=== PATIENT | male | born 1955 | race Caucasian/White ===

== ENCOUNTER 2022-03-08 09:44 | Outpatient (REF) | payer OTHER, SELFPAY ==
--- NOTE | ~2022-03-08 | XR_ITS ---
EXAMINATION: KNEE X-RAY CLINICAL INFORMATION: Pain COMPARISON: None TECHNIQUE: Standing AP view of both knees and lateral and sunrise view of the left knee FINDINGS: Left: There is slight medial subluxation of the distal femur with respect to the proximal tibia. There may be mild varus angulation. There is arthritis at the medial femoral tibial and patellofemoral joints with joint space narrowing and osteophyte formation. There is degenerative meniscal calcification. There is a small joint effusion. Standing AP view of the right knee demonstrate a right knee replacement in satisfactory position. There may be an old healed fracture of the distal femoral shaft. XR/XR knee standing BI IMPRESSION: Left knee arthritis. Right knee replacement.
--- NOTE | ~2022-03-08 | XR_ITS ---
EXAMINATION: KNEE X-RAY CLINICAL INFORMATION: Pain COMPARISON: None TECHNIQUE: Standing AP view of both knees and lateral and sunrise view of the left knee FINDINGS: Left: There is slight medial subluxation of the distal femur with respect to the proximal tibia. There may be mild varus angulation. There is arthritis at the medial femoral tibial and patellofemoral joints with joint space narrowing and osteophyte formation. There is degenerative meniscal calcification. There is a small joint effusion. Standing AP view of the right knee demonstrate a right knee replacement in satisfactory position. There may be an old healed fracture of the distal femoral shaft. XR/XR knee LT 2V IMPRESSION: Left knee arthritis. Right knee replacement.
== END 2022-03-08 09:45 | disposition home or self-care (01) ==
LOC: HO.HOSX 09:44
PROVIDERS: Visit Provider Orthopaedic Surgery
DX: M17.12 Unilateral primary osteoarthritis, left knee (principal); Z96.651 Presence of right artificial knee joint
CPT/HCPCS: 73560; 73565

== ENCOUNTER → 2022-08-08 12:48 | Outpatient (BNVA) | payer MEDICARE, SELFPAY | PROVIDERS: PCP Internal Medicine; Visit Provider Physician Assistant | DX: Z01.818 Encounter for other preprocedural examination (principal); M17.12 Unilateral primary osteoarthritis, left knee | CPT/HCPCS: 99212 ==

== ENCOUNTER 2022-08-14 05:54 | Inpatient (IN) | payer MEDICARE, SELFPAY ==
[2022-07-10 11:03] LABS: MANUAL DIFF FLAG NO
--- NOTE | 2022-07-10 11:12 | ECG_ITS ---
Test Reason : PRE OP Blood Pressure : / mmHG Vent. Rate : 055 BPM Atrial Rate : 055 BPM P-R Int : 158 ms QRS Dur : 106 ms QT Int : 416 ms P-R-T Axes : 028 -53 -07 degrees QTc Int : 397 ms Sinus bradycardia Left axis deviation Abnormal ECG When compared with ECG of 08-AUG-2009 10:18, No significant change was found Referred By: Arnel King Electronically Signed By:ANGELITO SILVA
[2022-07-10 11:47] LABS: Basophils Percent Auto 0.8 % (0-2); Eosinophils Absolute Auto 0.2 X10*3/uL (0.0-0.4); Hematocrit 40.8 % (42.0-52.0); Hemoglobin 13.6 g/dl (14.0-18.0); Imm Gran Abs Auto 0.02 X10*3/uL (0.00-0.03); Imm Gran Pct Auto 0.5 % (0.0-0.4); Lymphocytes Absolute Auto 1.3 X10*3/uL (1.2-4.9); Lymphocytes Percent Auto 32.3 % (20-40); Mean Corpuscular HGB Conc 33.3 g/dl (31.0-36.0); Mean Corpuscular Hemoglobin 29.7 pg (27.0-33.0); Mean Corpuscular Volume 89.1 fL (80.0-98.0); Mean Platelet Volume 11.5 fL (9.4-12.4); Monocytes Absolute Auto 0.6 X10*3/uL (0.1-1.2); Monocytes Percent Auto 15.7 % (2-11); Neutrophils Absolute Auto 1.9 x10*3/uL (2.0-8.3); Neutrophils Percent Auto 46.7 % (45-73); Platelet Count 168 X10*3/uL (160-400); Red Blood Count 4.58 X10*6/uL (4.60-5.80); Red Cell Distribution Width 13.1 % (11.0-16.0)
[2022-07-10 11:53] LABS: Estimated Average Glucose 105 mg/dL; Hemoglobin A1c % 5.3 %
[2022-07-10 12:29] LABS: Anion Gap 14 (12-20); Blood Urea Nitrogen 22 mg/dL (9-16); Carbon Dioxide 25 mmol/L (22-29); Chloride 106 mmol/L (96-108); Estimated Glomerular Filt Rate > 60; Glucose Random 81 mg/dL (60-115); Potassium 4.4 mmol/L (3.3-5.1); Sodium 141 mmol/L (135-145)
[2022-08-06 11:58] VITALS: BMI 35.5
[2022-08-06 12:03] VITALS: BP 148/75; PULSE 58; RESP 20; O2SAT 99
--- NOTE | 2022-08-06 12:10 | HO.ANESPROP2 ---
Documented by User: Venice Faulkner NP 08/06/22 12:21 HPI - Anesthesia Eval Consult details Narrative: 67yo M for Left Knee Replacement Total PCP cleared ? ROSARIO - denies snoring, reports rare apnea during sleep PMFSH Active Problems Active Problems: All Active Problems (Updated 08/06/22 @ 11:53 by Iman Angel RN) Osteoarthritis of left knee (Acute) Cellulitis of right leg (Acute) Past Medical History Medical History (Updated 08/14/22 @ 16:25 by ROSELINE Atkinson) Diabetes mellitus High cholesterol HTN (hypertension) Osteoarthritis Venous stasis dermatitis Family History Family history of problems with anesthesia: No Surgical History Surgical History History of tonsillectomy History of total right knee replacement History of Problems with Anesthesia: No Social History Social History Are you a primary career counselor to a significant other at home: No Do you presently have visiting nurse or other home services: No Patient Tobacco Use Status: Former Tobacco user Quit Date: 3 yrs ago Tobacco use type: Cigarette Second Hand Smoke Exposure: No Use of substances other than those prescribed or required for medical reasons: No Currently Displaying Signs/Symptoms of Drug Intoxication Withdrawal: No Have you been hit, kicked, punched, or otherwise hurt by someone within the past year? 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 Narrative Narrative: No recent illness No CP/SOB within limits of knee pain Meds Allergies Allergy/AdvReac Type Severity Reaction Status Date / Time No Known Allergies Allergy Verified 08/08/22 12:59 Home Medications Medication Instructions Recorded Confirmed Last Taken Type amlodipine 5 mg tablet 5 mg PO DAILY 03/08/22 08/02/22 08/14/22 History aspirin 81 mg tablet,delayed 81 mg PO DAILY 03/08/22 08/02/22 08/07/22 History release (Adult Low Dose Aspirin) furosemide 20 mg tablet 20 mg PO DAILY 03/08/22 08/02/22 08/13/22 History metformin 850 mg tablet 850 mg PO BID 03/08/22 08/02/22 08/13/22 History lisinopril 20 mg tablet 20 mg PO DAILY 07/10/22 08/02/22 08/13/22 History loratadine 10 mg tablet 10 mg PO DAILY 08/02/22 08/02/22 08/13/22 History atorvastatin 20 mg tablet 1 tab PO BEDTIME 08/06/22 08/06/22 08/13/22 History Exam Exam Date and Time: August 06, 2022 1210 Height,Weight and Vital Signs: Height 5 ft 11 in Weight 115.666 kg Last Vital Signs Pulse 58 08/06/22 12:03 Resp 20 08/06/22 12:03 BP 148/75 H 08/06/22 12:03 Pulse Ox 99 08/06/22 12:03 O2 Del Method 08/06/22 12:03 Pertinent Lab Results Pertinent Lab Results: Laboratory Tests 07/10/22 07/10/22 07/10/22 11:02 11:02 11:02 WBC 4.0 L RBC 4.58 L Hgb 13.6 L Hct 40.8 L MCV 89.1 MCH 29.7 MCHC 33.3 RDW 13.1 Plt Count 168 MPV 11.5 Immature Gran % (Auto) 0.5 H Neut % (Auto) 46.7 Lymph % (Auto) 32.3 [place] % (Auto) 15.7 H Eos % (Auto) 4.0 Baso % (Auto) 0.8 Lymph # (Auto) 1.3 [place] # (Auto) 0.6 Eos # (Auto) 0.2 Baso # (Auto) 0.0 Abs Immat Gran (auto) 0.02 Absolute Neuts (auto) 1.9 L Absolute Nucleated RBC 0.000 Nucleated RBC % (auto) 0.0 Sodium 141 Potassium 4.4 Chloride 106 Carbon Dioxide 25 Anion Gap 14 BUN 22 H Creatinine 1.20 Estim Creat Clear Calc TNP Estimated GFR > 60 Random Glucose 81 Estimat Average Glucose 105 Hemoglobin A1c % 5.3 Calcium 9.0 Narrative Narrative: EKG 07/2022 Vent. Rate : 055 BPM ? ? Atrial Rate : 055 BPM ?? P-R Int : 158 ms? QRS Dur : 106 ms ? ? QT Int : 416 ms ? ? ? P-R-T Axes : 028 -53 -07 degrees ?? QTc Int : 397 ms ? Sinus bradycardia Left axis deviation Abnormal ECG When compared with ECG of 08-AUG-2009 10:18, No significant change was found Airway Mallampati Class: II TM Dist: >3cm Neck ROM: Full Partial: Upper Heart: RRR Lungs: CTAB Assessment and Plan Assessment Anesthesia Assessment: Anesthesia Plan Discussed and PAT Visit Final Anesthetic Review Family History of Problems with Anesthesia: No History of Problems with Anesthesia: No Documented by User: Kwesi Hylton MD 08/14/22 16:59 [facility] Past Medical History Medical History (Updated 08/14/22 @ 16:25 by ROSELINE Atkinson) Diabetes mellitus High cholesterol HTN (hypertension) Osteoarthritis Venous stasis dermatitis Surgical History Surgical History History of tonsillectomy History of total right knee replacement Social History Social History Are you a primary career counselor to a significant other at home: No Do you presently have visiting nurse or other home services: No Patient Tobacco Use Status: Former Tobacco user Quit Date: 3 yrs ago Tobacco use type: Cigarette Second Hand Smoke Exposure: No Use of substances other than those prescribed or required for medical reasons: No Currently Displaying Signs/Symptoms of Drug Intoxication Withdrawal: No Have you been hit, kicked, punched, or otherwise hurt by someone within the past year? 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 Meds Allergies Allergy/AdvReac Type Severity Reaction Status Date / Time No Known Allergies Allergy Verified 08/08/22 12:59 Home Medications Medication Instructions Recorded Confirmed Last Taken Type amlodipine 5 mg tablet 5 mg PO DAILY 03/08/22 08/02/22 08/14/22 History aspirin 81 mg tablet,delayed 81 mg PO DAILY 03/08/22 08/02/22 08/07/22 History release (Adult Low Dose Aspirin) furosemide 20 mg tablet 20 mg PO DAILY 03/08/22 08/02/22 08/13/22 History metformin 850 mg tablet 850 mg PO BID 03/08/22 08/02/22 08/13/22 History lisinopril 20 mg tablet 20 mg PO DAILY 07/10/22 08/02/22 08/13/22 History loratadine 10 mg tablet 10 mg PO DAILY 08/02/22 08/02/22 08/13/22 History atorvastatin 20 mg tablet 1 tab PO BEDTIME 08/06/22 08/06/22 08/13/22 History Exam Airway Loose/Missing/Broken Teeth: Yes Assessment and Plan Assessment Anesthesia Assessment: Chart Reviewed Final Anesthetic Review NPO: Yes ASA Class: III Final Preanesthetic Review: Meds/Allgs Chart Reviewed, Consent Obtained/Reviewed and Anes Risks/Benef Reviewed Patient Risk: Intermediate Procedure Risk: Intermediate Anesthetic Plan Anesthetic Plan: Spinal and Regional Block Disposition: Inp. Admit - Standard Bed
[2022-08-06 14:48] LABS: MRSA Nasal PCR NEGATIVE (Negative); SA Nasal PCR NEGATIVE (Negative)
[2022-08-14] VITALS (23 sets, daily range): BP systolic 98–178; BP diastolic 54–81; PULSE 50–94; RESP 16–20; TEMP 36.1–37; O2SAT 95–98; BMI 35.1
--- NOTE | ~2022-08-14 | XR_ITS ---
EXAMINATION: XR KNEE, LEFT CLINICAL INFORMATION: Status post total knee arthroplasty COMPARISON: X-ray 03/08/2022 TECHNIQUE: Two views of the left knee. FINDINGS: Status post left total knee arthroplasty. Usual position and alignment of the arthroplasty components. Air in the soft tissues and joint. Skin florinad. XR/XR knee LT 2V IMPRESSION: Postsurgical changes status post total knee arthroplasty.
--- NOTE | 2022-08-14 07:28 | MHC.SHP ---
Pre-Procedural Eval Section A Date of Service: 08/14/22 The patient is an INPATIENT: No Changes since office visit: Yes Patient answered all questions; No Cold of Flu in the past 2 weeks, No New Medical Problems and No Changes in Medication The History & Physical has been completed within 30 days and I have reviewed it.: Yes Section B Chief Complaint: LT TKA Allergies: Allergies Allergy/AdvReac Type Severity Reaction Status Date / Time No Known Allergies Allergy Verified 08/08/22 12:59 Plan I have reviewed the history and physical and performed a pertinent physical examination on my patient. No changes have occurred unless specified.
[2022-08-14 07:34] LABS: Glucose, Whole Blood 101 mg/dL (60-115)
[2022-08-14 07:47] LABS: Hematocrit 39.3 % (42.0-52.0); Hemoglobin 13.1 g/dl (14.0-18.0)
[2022-08-14 08:02] LABS: COVID-19 Test Negative (Negative); IDNOW Serial# 55D5AD1C
[2022-08-14] MEDS: Lactated Ringers 1,000 ML 100 ML IVCONT ×2 (08:12→15:55)
--- NOTE | 2022-08-14 11:08 | P.BOP_ITS ---
Brief Operative Note Date of Service: 08/14/22 Pre-op diagnosis: Left knee OA Post-op diagnosis: same Procedure: Left TKA Implants: [place] Triathalon cemented posterior stabilized 04/04/14ps/32s Surgeon: Arnel King MD Anesthesia: regional and local Was an Party Plan Demonstrator used for this Procedure?: Yes Party Plan Demonstrator: Cathy Landaverde Estimated blood loss (mL): 200 IV fluids (mL): 1,000 Pathology: other Condition: stable Disposition: PACU
--- NOTE | 2022-08-14 11:10 | W.PM.OPN ---
Operative Note Operative Note Date of Service: 08/14/22 Narrative: Date of Service: 08/14/22 Pre-op diagnosis: Left knee OA Post-op diagnosis: same Procedure: Left TKA Implants: [place] Triathalon cemented posterior stabilized 04/04/14ps/32s Surgeon: Arnel King MD Anesthesia: regional and local Was an Assistant Professor Of Archaeology used for this Procedure?: Yes Assistant Professor Of Archaeology: Cathy Landaverde Estimated blood loss (mL): 200 IV fluids (mL): 1,000 Pathology: other Condition: stable Disposition: PACU Procedure in detail: The patient was brought to the operating room and prepped and draped in standard sterile fashion. A time-out was called to identify proper site proper procedure proper surgeon and IV antibiotics were administered. 1 g of IV tranexamic acid was administered. I began by making a midline incision to the retinaculum and performed a medial parapatellar arthrotomy. The patella was translated laterally and the knee was flexed up. There was tricompartmental severe OA with loss of medial plateau bone. Collateral ligaments were intact. I performed a medial peel and resected the infrapatellar fat pad. Casey's line was then used to drill my intramedullary femoral guide and my distal femur cut of 10 mm was made in 5 degrees of valgus while protecting the soft tissues. I then measured a # 5 femur and placed my cutting guide and made my anterior posterior and chamfer cuts protecting the soft tissues at all times. I then made my box but removing the PCL. Once I was satisfied with my cuts I turned my attention to the tibia. I removed the meniscus medially and laterally and , using an external cutting guide, in line with the tibial crest and the third ray, I made my distal tibial cut in 0 deg slope of while protecting the posterior soft tissues at all times. An extension block was used to confirm appropriate amount of bony resection. I then sized a #5 tibia and once I was satisfied that there was complete tibial coverage I placed my trial and with the trial femur in place took the knee through range of motion. I was satisfied with the extension and flexion as well as the stability at 0, 30 and 90 degrees. There was good blance in 0,30 and 90 deg. I then turned my attention to the patella where I removed 1 cm from the undersurface of the patella and then trialed a 32a patellar button. Again the knee was taken through range of motion I was satisfied with the tracking. I then returned to the tibia where I prepared the tibia. A femoral bone plug was placed and the knee was irrigated copiously. I then cemented in the patella, tibia and femur in standard fashion while applying axial compression. Once the cement was dry and all excess cement was removed, I trialed different inserts until I selected a #14 insert. The final insert was placed and a 3 minutes iodine soak with local TXA was performed. The knee was then closed with a running Quill suture, a 3 0 Vicryl and florinda on the skin. Patient was then placed in sterile dressing and brought to recovery room in stable condition there were no known complications.
--- NOTE | 2022-08-14 12:02 | PHA.MEDREC ---
Pharmacy Consult ? Medication Reconciliation Pharmacy has completed the medication reconciliation. Reviewed med rec done by nursing
[2022-08-14] MEDS: HYDROmorphone HCl 0.5 MG/0.5 ML SYRINGE 0.25 MG IVPUSH ×3 (15:05→18:43)
[2022-08-14 16:08] LABS: Glucose, Whole Blood 101 mg/dL (60-115)
--- NOTE | 2022-08-14 16:20 | HO.PM.IMCN ---
History of Present Illness Data of Consult Service Date: 08/14/22 Requesting physician: Cathy Landaverde Primary Care Provider: Lacy Steen MD [facility] Reason for consult: medical management 67 year old male admitted to orthopedic surgery team for left tkr due to ortheoarthritis. Pt underwent TKR earlier today. Reports pain is well controlled. Has no complaints. No sob, chest pain, palpitations. Review of Systems Review of Systems: General: No fevers, malaise, unintentional weight loss Cardiovascular: No chest pain, palpitations, or leg edema Respiratory: No shortness of breath, wheezing, cough GI: No abdominal pain, nausea, vomiting, diarrhea, constipation, melena, hematochezia Neuro: No headaches, weakness, paresthesias Skin: No rashes or lesions [facility] Medical History (Updated 08/14/22 @ 16:25 by ROSELINE Atkinson) Diabetes mellitus High cholesterol HTN (hypertension) Osteoarthritis Venous stasis dermatitis Surgical History History of tonsillectomy History of total right knee replacement Social History Are you a primary foster care case manager to a significant other at home: No Do you presently have visiting nurse or other home services: No Patient Tobacco Use Status: Former Tobacco user Quit Date: 3 yrs ago Tobacco use type: Cigarette Second Hand Smoke Exposure: No Use of substances other than those prescribed or required for medical reasons: No Currently Displaying Signs/Symptoms of Drug Intoxication Withdrawal: No Have you been hit, kicked, punched, or otherwise hurt by someone within the past year? 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 [employer] Allergies Allergy/AdvReac Type Severity Reaction Status Date / Time No Known Allergies Allergy Verified 08/08/22 12:59 Active Medications: Current Medications Acetaminophen (Acetaminophen 325 Mg Tablet) 650 mg PO Q6H PRN PRN Reason: Pain, Mild (Pain Scale 1-3) Amlodipine Besylate (Amlodipine Besylate 5 Mg Tablet) 5 mg PO DAILY [facility]; Protocol Aspirin (Aspirin 325 Mg Tablet) 325 mg PO BID@1030,2230 [facility] Atorvastatin Calcium (Atorvastatin Calcium 20 Mg Tablet) 20 mg PO BEDTIME [facility] Celecoxib (Celecoxib 200 Mg Capsule) 200 mg PO BID [facility] Docusate Sodium (Docusate Sodium 100 Mg Capsule) 100 mg PO BID [facility] Fentanyl (Fentanyl Citrate/Pf 100 Mcg/2 Ml Vial) 25 mcg IVPUSH Q5M PRN; Protocol PRN Reason: Pain, Moderate (Pain Scale 4-6 Furosemide (Furosemide 20 Mg Tablet) 20 mg PO DAILY [facility]; Protocol Hydromorphone HCl (Hydromorphone Hcl 0.5 Mg/0.5 Ml Syringe) 0.25 mg IVPUSH Q5M PRN; Protocol PRN Reason: Pain, Severe (Pain Scale 7-10) Last Admin: 08/14/22 15:12 Dose: 0.25 mg Hydromorphone HCl (Hydromorphone Hcl 0.5 Mg/0.5 Ml Syringe) 0.25 mg IVPUSH Q4H PRN; Protocol PRN Reason: Pain, Severe (Pain Scale 7-10) Lactated Ringer's (Lr) 1,000 mls @ 100 mls/hr IVCONT .Q10H [facility] Last Admin: 08/14/22 15:55 Dose: 100 mls/hr Acetaminophen (Ofirmev) 1,000 mg in 100 mls @ 400 mls/hr IV Q6H [facility] Last Infusion: 08/14/22 16:05 Dose: Infused Lactated Ringer's (Lr) 1,000 mls @ 100 mls/hr IVCONT .Q10H [facility] Last Admin: 08/14/22 16:13 Dose: Not Given Vancomycin HCl (Vancomycin/Ns) 2,000 mg in 520 mls @ 260 mls/hr IV POSTOP [facility] Stop: 08/14/22 22:59 Lisinopril (Lisinopril 20 Mg Tablet) 20 mg PO DAILY [facility]; Protocol Loratadine (Loratadine 10 Mg Tablet) 10 mg PO DAILY [facility] Metformin HCl (Metformin Hcl 850 Mg Tablet) 850 mg PO BIDWM [facility] Ondansetron HCl (Ondansetron Hcl 4 Mg/2 Ml Vial) 4 mg IVPUSH Q8H PRN PRN Reason: Nausea and Vomiting Oxycodone HCl (Oxycodone Hcl Immed Release 5 Mg Tablet) 5 mg PO Q4H PRN PRN Reason: Pain, Moderate (Pain Scale 4-6 Oxycodone HCl (Oxycodone Hcl Er 10 Mg Tab.Er.12h) 10 mg PO BID [facility] Pharmacy Consult (Consult Rx Vancomycin Dosing) 1 each MISCELLANE DAILY PRN PRN Reason: Consult order Sodium Chloride (0.9 % Sodium Chloride Flush 3 Ml Syringe) 3 ml IVFLUSH QSHIFT [facility] Last Admin: 08/14/22 16:14 Dose: Not Given Home Medications Medication Instructions Recorded Confirmed Last Taken Type amlodipine 5 mg tablet 5 mg PO DAILY 03/08/22 08/02/22 08/14/22 History aspirin 81 mg tablet,delayed 81 mg PO DAILY 03/08/22 08/02/22 08/07/22 History release (Adult Low Dose Aspirin) furosemide 20 mg tablet 20 mg PO DAILY 03/08/22 08/02/22 08/13/22 History metformin 850 mg tablet 850 mg PO BID 03/08/22 08/02/22 08/13/22 History lisinopril 20 mg tablet 20 mg PO DAILY 07/10/22 08/02/22 08/13/22 History loratadine 10 mg tablet 10 mg PO DAILY 08/02/22 08/02/22 08/13/22 History atorvastatin 20 mg tablet 1 tab PO BEDTIME 08/06/22 08/06/22 08/13/22 History Physical Exam Vital Signs and Narrative: Vital Signs: Last Vital Signs Temp 97.7 F 08/14/22 15:57 Pulse 74 08/14/22 15:57 Resp 18 08/14/22 15:57 BP 161/81 H 08/14/22 15:57 Pulse Ox 97 08/14/22 15:57 O2 Del Method 08/14/22 15:57 O2 Flow Rate 4 08/14/22 11:23 BMI result Body Mass Index 35.1 Constitutional - Awake and Alert, No apparent distress Eyes - PERRLA, EOMI Cardiovascular - S1S2, RRR, No edema Respiratory - Normal lung expansion, Normal respiratory effort, No respiratory distress, CTA bilaterally Gastrointestinal - NT / ND; +BS; No rebound or guarding Extremities - no calf tenderness bilaterally, no swelling Musculoskeletal - s/p left tkr with surgical dressing and wrap in place without drainage Skin - Warm/Dry Neurological - Alert & oriented x3, No focal deficit Psychological - Appropriate affect Results Labs CBC and Chem 7: 08/14/22 07:37 07/10/22 11:02 Labs: Laboratory Results - last 24 hr 08/14/22 08/14/22 08/14/22 07:31 07:45 16:01 POC Glucose 101 101 COVID-19 ([facility]) Negative COVID-19 Clin Com See Note Imaging Radiologist's Impressions: Impressions Knee X-Ray 08/14/22 11:52 IMPRESSION: Postsurgical changes status post total knee arthroplasty. Assessment and Plan (1) Osteoarthritis of left knee: Status: Acute Plan 67 year old male admitted to orthopedic surgery team for left tkr due to ortheoarthritis with consult placed for medical management. 1- Osteoarthritis left knee s/p TKR- post op day 0 -Plan per orthopedic surgery team 2-Noninsulin dependent type 2 diabetes- controlled -POC glucose -Diabetic diet -Continue metformin 3-HTN- bp slighlty elevated -Continue amlodipine, furosemide and lisinopril -Monitor bps 4-HLD -Continue atorvastatin 5-Venous stasis- stable -Cotninue furosemide Will continue following. Thank you for this consult.
[2022-08-14] MEDS: metFORMIN HCl 850 MG TABLET PO (18:44)
[2022-08-14 20:02] LABS: Glucose, Whole Blood 143 mg/dL (60-115)
[2022-08-14] MEDS: Celecoxib 200 MG CAPSULE PO (21:58)
[2022-08-14] MEDS: oxyCODONE HCl ER 10 MG TAB.ER.12H PO (21:58)
[2022-08-14] MEDS: Atorvastatin Calcium 20 MG TABLET PO (21:58)
[2022-08-14] MEDS: Docusate Sodium 100 MG CAPSULE PO (21:58)
[2022-08-14] MEDS: vancomycin HCL 750 MG in 0.9 % Sodium Chloride 250 ML 265 MG IV (21:58)
[2022-08-15] VITALS: BP 155/74; PULSE 94; RESP 18; TEMP 37.2; O2SAT 96
[2022-08-15 04:00] VITALS: BP 136/72; PULSE 88; RESP 18; TEMP 37.1; O2SAT 96
[2022-08-15] MEDS: Lactated Ringers 1,000 ML 100 ML IVCONT ×2 (04:36→13:18)
[2022-08-15 07:39] VITALS: BP 146/71; PULSE 87; RESP 18; TEMP 36.9; O2SAT 96
[2022-08-15] MEDS: Celecoxib 200 MG CAPSULE PO (07:46)
[2022-08-15] MEDS: metFORMIN HCl 850 MG TABLET PO (07:46)
[2022-08-15] MEDS: Furosemide 20 MG TABLET PO (07:46)
[2022-08-15] MEDS: oxyCODONE HCl ER 10 MG TAB.ER.12H PO (07:47)
[2022-08-15] MEDS: lisinopriL 20 MG TABLET PO (07:47)
[2022-08-15] MEDS: Loratadine 10 MG TABLET PO (07:47)
[2022-08-15] MEDS: Docusate Sodium 100 MG CAPSULE PO (07:47)
[2022-08-15] MEDS: 0.9 % Sodium Chloride Flush 3 ML SYRINGE IVFLUSH (07:50)
[2022-08-15] MEDS: amLODIPine Besylate 5 MG TABLET PO (07:50)
[2022-08-15 07:55] LABS: Glucose, Whole Blood 137 mg/dL (60-115)
[2022-08-15 08:10] VITALS: BP 146/71; PULSE 87; O2SAT 96
--- NOTE | 2022-08-15 09:01 | MHC.CM.PN ---
PATIENT LIVES WITH HCP/ NEW COPY TO BE COMPLETED AND PLACED IN CHART. COVID VAX X 2 HAD COVID 1 X PATIENT HAS A CANE AND WALKER REFERRAL TO [facility] FOR HOME P.T. TO TRANSPORT. IMM 08/15 IN CHART
--- NOTE | 2022-08-15 09:09 | P.PNOP_ITS ---
Subjective Subjective Date of Service: 08/15/22 Interval history: POD 1 s/p LT TKA No overnight events He has worked with PT this morning and doing well denies cp, palpitations, sob Physical Exam Vital Signs: Vital Signs: Last Vital Signs Temp 98.4 F 08/15/22 07:39 Pulse 87 08/15/22 08:10 Resp 18 08/15/22 07:39 BP 146/71 H 08/15/22 08:10 Pulse Ox 96 08/15/22 08:10 O2 Del Method 08/15/22 07:39 O2 Flow Rate 4 08/14/22 11:23 BMI result Body Mass Index 35.1 Const: General: cooperative, healthy appearing and no acute distress Resp: Effort & Inspection: normal respiratory effort and able to speak in complete sentences Cardio: Rate: regular rate Peripheral pulses: Peripheral pulses 2+ throughout GI: Palpation (GI): Soft to palpation Skin: General skin exam: no rashes or lesions noted Extrem: Other: bandage clean dry and intact. [place] intact. No erythema or joint effusion. Calf supple nontender. Neurovascularly intact. Procedures Date of Service Date of Service: 08/15/22 Progress Note: A&P Assessment and plan (1) Status post total left knee replacement: Status: Acute Assessment and Plan: * Continue pain mgmnt * Begin Aspirin for dvt ppx * begin PT for LT TKA * Dispo planning-Pending PT eval, pain mgmnt Time Spent With Patient Time: Total time spent is greater than 50% in coordination of care (as documented) at patient's floor/unit and/or counseling patient: Quality Stroke Does the patient have a stroke diagnosis?: No VTE Prior VTE?: No VTE Risk Level:: Surgical - very high VTE Device Contraindication: N/A - Device Ordered VTE Drug Contraindication: N/A - Med Ordered
[2022-08-15 09:50] LABS: Creatinine Clr Calc Pharmacy 92.4; Estimated Glomerular Filt Rate > 60
[2022-08-15] MEDS: Aspirin 325 MG TABLET PO (10:09)
[2022-08-15 11:40] LABS: Glucose, Whole Blood 142 mg/dL (60-115)
[2022-08-15 11:41] VITALS: BP 159/72; PULSE 91; RESP 18; TEMP 36.3; O2SAT 97
--- NOTE | 2022-08-15 12:03 | HO.PM.IMPN ---
Subjective Subjective Date of Service: 08/15/22 Interval History: f/u on med consult, s/p knee replacement interval history: no new issues Physical Exam Vital Signs: Vital Signs: Last Vital Signs Temp 97.4 F 08/15/22 11:41 Pulse 91 08/15/22 11:41 Resp 18 08/15/22 11:41 BP 159/72 H 08/15/22 11:41 Pulse Ox 97 08/15/22 11:41 O2 Del Method 08/15/22 11:41 O2 Flow Rate 4 08/14/22 11:23 BMI result Body Mass Index 35.1 Const: Other: General: AO X 3, no acute distress Resp: CTA bilateral CVS: S1,S2,RRR GI: +BS, NT, no distention Skin: No rash, knee dressing in place no stains of blood Neuro: motor grossly intact Psych: appropriate affect Objective Data Active Medications Acetaminophen (Acetaminophen 325 Mg Tablet) 650 mg PO Q6H PRN PRN Reason: Pain, Mild (Pain Scale 1-3) Amlodipine Besylate (Amlodipine Besylate 5 Mg Tablet) 5 mg PO DAILY [facility]; Protocol Last Admin: 08/15/22 07:50 Dose: 5 mg Documented By: SHERRON Aspirin (Aspirin 325 Mg Tablet) 325 mg PO BID@1030,2230 [facility] Last Admin: 08/15/22 10:09 Dose: 325 mg Documented By: SHERRON Atorvastatin Calcium (Atorvastatin Calcium 20 Mg Tablet) 20 mg PO BEDTIME [facility] Last Admin: 08/14/22 21:58 Dose: 20 mg Documented By: RITA Celecoxib (Celecoxib 200 Mg Capsule) 200 mg PO BID [facility] Last Admin: 08/15/22 07:46 Dose: 200 mg Documented By: SHERRON Docusate Sodium (Docusate Sodium 100 Mg Capsule) 100 mg PO BID [facility] Last Admin: 08/15/22 07:47 Dose: 100 mg Documented By: SHERRON Fentanyl (Fentanyl Citrate/Pf 100 Mcg/2 Ml Vial) 25 mcg IVPUSH Q5M PRN; Protocol PRN Reason: Pain, Moderate (Pain Scale 4-6 Furosemide (Furosemide 20 Mg Tablet) 20 mg PO DAILY [facility]; Protocol Last Admin: 08/15/22 07:46 Dose: 20 mg Documented By: SHERRON Hydromorphone HCl (Hydromorphone Hcl 0.5 Mg/0.5 Ml Syringe) 0.25 mg IVPUSH Q5M PRN; Protocol PRN Reason: Pain, Severe (Pain Scale 7-10) Last Admin: 08/14/22 15:12 Dose: 0.25 mg Documented By: SHA Hydromorphone HCl (Hydromorphone Hcl 0.5 Mg/0.5 Ml Syringe) 0.25 mg IVPUSH Q4H PRN; Protocol PRN Reason: Pain, Severe (Pain Scale 7-10) Last Admin: 08/14/22 18:43 Dose: 0.25 mg Documented By: GREGORY Lactated Ringer's (Lr) 1,000 mls @ 100 mls/hr IVCONT .Q10H [facility] Last Admin: 08/15/22 04:36 Dose: 100 mls/hr Documented By: RITA Acetaminophen (Ofirmev) 1,000 mg in 100 mls @ 400 mls/hr IV Q6H [facility] Last Infusion: 08/15/22 10:37 Dose: 0 mls/hr Documented By: SHERRON Lactated Ringer's (Lr) 1,000 mls @ 100 mls/hr IVCONT .Q10H [facility] Last Admin: 08/15/22 04:37 Dose: Not Given Documented By: RITA Non-Admin Reason: Duplicate Order Lisinopril (Lisinopril 20 Mg Tablet) 20 mg PO DAILY [facility]; Protocol Last Admin: 08/15/22 07:47 Dose: 20 mg Documented By: SHERRON Loratadine (Loratadine 10 Mg Tablet) 10 mg PO DAILY [facility] Last Admin: 08/15/22 07:47 Dose: 10 mg Documented By: SHERRON Metformin HCl (Metformin Hcl 850 Mg Tablet) 850 mg PO BIDWM [facility] Last Admin: 08/15/22 07:46 Dose: 850 mg Documented By: SHERRON Ondansetron HCl (Ondansetron Hcl 4 Mg/2 Ml Vial) 4 mg IVPUSH Q8H PRN PRN Reason: Nausea and Vomiting Oxycodone HCl (Oxycodone Hcl Immed Release 5 Mg Tablet) 5 mg PO Q4H PRN PRN Reason: Pain, Moderate (Pain Scale 4-6 Oxycodone HCl (Oxycodone Hcl Er 10 Mg Tab.Er.12h) 10 mg PO BID [facility] Last Admin: 08/15/22 07:47 Dose: 10 mg Documented By: SHERRON Pharmacy Consult (Consult Rx Vancomycin Dosing) 1 each MISCELLANE DAILY PRN PRN Reason: Consult order Sodium Chloride (0.9 % Sodium Chloride Flush 3 Ml Syringe) 3 ml IVFLUSH QSHIFT [facility] Last Admin: 08/15/22 07:50 Dose: 3 ml Documented By: SHERRON Labs CBC & Chem 7: 08/14/22 07:37 08/15/22 08:53 Labs: Laboratory Results - last 24 hr 08/14/22 08/14/22 08/15/22 16:01 19:57 07:39 Estim Creat Clear Calc Estimated GFR POC Glucose 101 143 H 137 H 08/15/22 08/15/22 08:53 11:23 Estim Creat Clear Calc 92.4 Estimated GFR > 60 POC Glucose 142 H Assessment and Plan (1) Diabetes mellitus: Status: Acute (2) HTN (hypertension): Status: Acute Plan 67 year old male admitted to orthopedic surgery team for left tkr due to ortheoarthritis with consult placed for medical management. 1- Osteoarthritis left knee s/p TKR- post op day 1 -Plan per orthopedic surgery team 2-Noninsulin dependent type 2 diabetes- controlled -POC glucose -Diabetic diet -Continue metformin 3-HTN- bp slighlty elevated -Continue amlodipine, furosemide and lisinopril -Monitor bps 4-HLD -Continue atorvastatin 5-Venous stasis- stable -Cotninue furosemide Will continue following. Quality Stroke Does the patient have a stroke diagnosis?: No VTE Prior VTE?: No VTE Risk Level:: Surgical - very high VTE Device Contraindication: N/A - Device Ordered VTE Drug Contraindication: N/A - Med Ordered
[2022-08-15 13:43] VITALS: BP 159/72; PULSE 91; O2SAT 97
--- NOTE | 2022-08-15 13:59 | PM.DS ---
DS: Providers Provider Date of Service: 08/15/22 Date of admission: 08/14/22 05:54 Primary care physician: Lacy Steen MD Consults: 08/14/22 15:54 Consult to Hospitalist Routine Consulting Provider: Hospitalist Reason For Exam: routine medical management DS: Diagnosis Discharge Diagnosis (1) Status post total left knee replacement: Status: Acute DS: Summary Hospital Course Hospital Course: The patient underwent a successful left total knee arthroplasty, was transferred to PACU and then to the floor to recover. During their stay, their vitals were stable, afebrile, Labs were unremarkable. . POD 1 he was started on ASA 325mg tabs po bid for DVT ppx, he also received PT services twice a day. Prior to discharge, dressing was clean dry and intact,and the plan was to be discharged home with VNA services. Time Spent with Patient Time attestation: Total time spent providing and/or coordinating discharge services: Discharge coordination time: Less than 30 minutes Quality: Safe Use of Opioids Does Pt have an Active Cancer Diagnosis on the Problem List?: No Quality: Stroke Does the patient have a stroke diagnosis?: No Physical Exam Vital Signs: Vital Signs: Last Vital Signs Temp 97.4 F 08/15/22 11:41 Pulse 91 08/15/22 13:43 Resp 18 08/15/22 11:41 BP 159/72 H 08/15/22 13:43 Pulse Ox 97 08/15/22 13:43 O2 Del Method 08/15/22 11:41 O2 Flow Rate 4 08/14/22 11:23 BMI result Body Mass Index 35.1 Const: General: cooperative, healthy appearing and no acute distress Resp: Effort & Inspection: normal respiratory effort and able to speak in complete sentences Cardio: Rate: regular rate Peripheral pulses: Peripheral pulses 2+ throughout GI: Palpation (GI): Soft to palpation Skin: General skin exam: no rashes or lesions noted Extrem: Other: bandage c/d/i. No erythema or drainage. mild edema, calf supple non tender, nvi. DS: Data Data Completed and Pending Pending studies at discharge: Pending at discharge 08/14/22 10:37 Surgical [PTH] Routine Labs on day of discharge: Laboratory Results - last 24 hr 08/14/22 08/14/22 08/15/22 16:01 19:57 07:39 Creatinine Estim Creat Clear Calc Estimated GFR POC Glucose 101 143 H 137 H 08/15/22 08/15/22 08:53 11:23 Creatinine 0.97 Estim Creat Clear Calc 92.4 Estimated GFR > 60 POC Glucose 142 H Discharge Plan Discharge Patient Disposition: Home Health Service Discharge Diagnosis: LT TKA Referrals: Neisha DARSHANAA [Outside] - 1 Week Riya Sanchez PA-C [Physician Mig Welder] - 2 Weeks (08/29/22 11:30 [facility]geons Riya Sanchez PA-C) Discharge Medications: New celecoxib 200 mg Capsule 200 mg PO BID 14 Days Qty: 28 0RF acetaminophen 325 mg Tablet 650 mg PO Q6H PRN (Reason: Pain, Mild (Pain Scale 1-3)) 30 Days Qty: 240 0RF aspirin 325 mg Tablet 325 mg PO BID@1030,2230 42 Days Qty: 84 0RF docusate sodium 100 mg Capsule 100 mg PO BID 14 Days Qty: 28 0RF oxycodone 5 mg Tablet 5 mg PO Q4H PRN (Reason: Pain, Moderate (Pain Scale 4-6) 7 Days Qty: 42 0RF Rx Instructions: Partial Fill upon patient request. Continued loratadine 10 mg Tablet 10 mg PO DAILY atorvastatin 20 mg tablet 1 tab PO BEDTIME metformin 850 mg tablet 850 mg PO BID furosemide 20 mg tablet 20 mg PO DAILY amlodipine 5 mg tablet 5 mg PO DAILY lisinopril 20 mg tablet 20 mg PO DAILY Discontinued ibuprofen 800 mg tablet 800 mg PO TID PRN (Reason: for pain) Qty: 90 1RF aspirin [Adult Low Dose Aspirin] 81 mg tablet,delayed release (DR/EC) 81 mg PO DAILY Discharge Orders: Discharge Order (Routine); Ordered 08/15/22 Ordered By: Riya Sanchez Diet: Regular diet Activity on Discharge: Use cane or walker Stand Alone Forms: Patient Portal Discharge page Care Plan Goals: Restore function of joint Health Concerns: none Plan of Treatment: Physical Therapy Pain management DVT prophylaxis Assessment: Physical Therapy for Total knee arthroplasty: WBAT, gait training, ROM 0-12, quad strength Limit stair climbing No showering, no tub bath-keep dressing clean, dry and intact No driving x6 weeks Continue Aspirin twice a day x 6 weeks Follow up with [facility] Orthopedics in 2 weeks: 08/29/22 @ 11:30am --you will also have your first out patient PT eval on the day of your post op appt-so please plan on being in the office that day for an extended period of time.
--- NOTE | 2022-08-15 14:30 | P.F2F_ITS ---
Service Date Service Date: 08/15/22 Encounter Date of encounter: 08/15/22 Reasons for Services Signs and symptoms assessed: left knee pain, swelling, difficulty with balance and ambulation Reason for physical therapy: home safety and mobility, therapeutic exercises, restore joint function, gait/transfer training, ADL training and energy conservation Reason for occupational therapy: home safety and mobility, therapeutic exercises, restore joint function, gait/transfer training, ADL training and energy conservation MD Overseeing Care: Arnel King Homebound: Leaving the home is medically contraindicated at this time without the asist of a device and/or another person due th the listed conditions above and below. Reason homebound: unsteady gait / fall risk, pain with ambulation, pain with transfers, poor balance / fall risk and unable to drive Homebound supporting statement: Pt. is considered home bound due to recent surgery. Unable to drive, poor balance, poor gait mechanics. Certification: Based on the above findings, I certify that this patient is confined to the home and needs intermittent detention care, physical therapy and/or speech therapy, or continues to need occupational therapy. The patient is under my care, and I have initiated the establishment of the plan of care. The patient will be followed by a physician who will periodically review the plan of care.
--- NOTE | 2022-08-15 14:49 | HO.POSTANES ---
Post Anesthesia Evaluation Post Anesthesia Evaluation Vital Signs: Vital Signs Temp Pulse Resp BP Pulse Ox O2 Del Method 08/15/22 13:43 91 159/72 H 97 08/15/22 11:41 97.4 F 91 18 159/72 H 97 Room Air 08/15/22 08:10 87 146/71 H 96 08/15/22 07:39 98.4 F 87 18 146/71 H 96 Room Air 08/15/22 04:00 98.7 F 88 18 136/72 96 Room Air Anesthesia: Spinal and Nerve Block Mental Status: Awake Pain Control: Satisfactory Nausea/Vomiting: None Hydration: Adequate Anesthesia-Related Issues: No Anes. Related Issues
== END 2022-08-15 15:17 | disposition home health service (06) | DRG 470 ==
LOC: HO.SSSA 05:55 → HO.S3 13:26
PROVIDERS: Physician Assistant; Admitting Provider Internal Medicine; PCP Internal Medicine; Visit Provider Orthopaedic Surgery
PROC: 0SRD0J9 Replacement of Left Knee Joint with Synthetic Substitute, Cemented, Open Approach (ICD-10-PCS; CPT 27447; principal; 2022-08-14 09:30)
DX: M17.12 Unilateral primary osteoarthritis, left knee (principal); E78.00 Pure hypercholesterolemia, unspecified; I10 Essential (primary) hypertension; I87.8 Other specified disorders of veins; E11.9 Type 2 diabetes mellitus without complications; Z20.822 Contact with and (suspected) exposure to COVID-19; Z96.651 Presence of right artificial knee joint; Z79.84 Long term (current) use of oral hypoglycemic drugs; Z79.899 Other long term (current) drug therapy
CPT/HCPCS: 36415; 73560; 80048; 82565; 82947; 83036; 85014; 85018; 85025; 86850; 86900; 86901; 87635; 87640; 87641; 88305; 88311; 93005; 97110; 97116; 97162; C1713; C1776; J0131; J1170; J2250; J2370; J2795; J3370

== ENCOUNTER 2022-08-29 15:28 | Outpatient (REF) | payer MEDICARE, SELFPAY ==
--- NOTE | ~2022-08-29 | US_ITS ---
EXAMINATION: US VENOUS ULTRASOUND WITH DOPPLER LOWER EXTREMITY, LEFT CLINICAL INFORMATION: Left lower extremity edema. COMPARISON: None TECHNIQUE: Ultrasound of the deep veins is performed from the hip to the calf with compression sonography and color and pulse Doppler assessment. Spectral analysis with color-flow imaging is performed. FINDINGS: There is normal venous compression and respiratory variation and augmented flow. The visualized common femoral vein, superficial femoral vein, profunda femoral vein, popliteal vein, and the trifurcation region shows no evidence of deep venous thrombosis. No left popliteal cyst. The subcutaneous soft tissues show mild edema. If the patient's symptoms persist, followup ultrasound in 5 days 7 days might be of value to exclude proximal propagation from a non-visualized calf vein. US/US venous duplex LE LT IMPRESSION: 1. No evidence for deep venous thrombosis in the visualized veins of the left lower extremity. 2. Mild subcutaneous edema in the left calf.
== END 2022-08-29 15:29 | disposition home or self-care (01) ==
LOC: HO.US 15:28
PROVIDERS: Visit Provider Physician Assistant
DX: R60.0 Localized edema (principal); Z96.652 Presence of left artificial knee joint
CPT/HCPCS: 93971

== ENCOUNTER 2022-10-11 09:00 | Outpatient (RCR) | payer MEDICARE, SELFPAY ==
--- NOTE | 2022-08-29 12:57 | MHC.PT.EP ---
[facility] [place] Office [place] Office [place] Office [address] Tana Pompa [address] [phone] F: [phone] F: [phone] F: [phone] F: [phone] Physical Therapy Plan of Care Date of Evaluation: Date of Surgery: 08/14/22 Diagnosis: S/P LEFT TKA Assessment: 67 YO MALE REF TO PT S/P Lt TKR ON 08/14/22- HE HAS H/O Rt TKA 20 YRS AGO. HE RESIDES W HIS SPOUSE IN A 1 LEVEL HOME AND IS CURRENTLY AMB W A W/WALKER . TODAY Pt IS REF FOR AN US TO ASSESS Lt LATERAL CALF/MOORE PAIN. OBJECTIVE FINDINGS: LIMITED AROM Lt KNEE, TIGHT PSOAS MM CJ AND DECR ANKLE DF CJ; DECR STRENGTH IN PROX / LUMBOPELVIC AND Lt LE, POST-OP PAIN IN LEFT KNEE ,AND HEALING ANT Lt KNEE INCISION. FUNCTIONALLY, Pt IS AMB W A W/WALKER- HE HAS COMPENSATORY GAIT, MODIFIED STAIR MGMT, DECR STANDING, SLEEPING, AND DECR BHUMIKA TO ADLs REQ Lt KNEE FLEX. Pt IS A VERY GOOD PT CANDIDATE TO GUIDE HIM IN HIS POST-OP TKR COURSE, ADDRESSING THE ABOVE FINDINGS, PAIN MGMT, AND MAXIMIZING FUNCTIONAL INDEPENDENCE. Frequency and Duration: The patient will be seen 2x WK x 10 WKS Short Term Goals: *Pt'S LEFT KNEE PAIN DECR TO 2-3/10 *Pt INCREASE Lt KNEE ROM -> 0* EXTEN AND PROGRESSIVELY TO 120* FLEX *INCR FLEXINB IN PSOAS/ CALF MM TO IMPROVE EFFICIENCY OF GAIT ON LEVEL AND STAIRS *REDUCE Lt LE EDEMA AND MONITOR/ ADDRESS SCAR MOB NEEDED Brewery Pumper Goals: Pt INDEP W HEP PROGRESSION AND SELF-SX MGMT STRATEGIES IN 10 WKS Pt RESUME REG ADLs EVIDENT W IMPROVED LEFI SCORE BY 8-10 POINTS (AT EVAL ) IN 10 WKS Pt INCR LUMBOPELVIC AND PROX LE STRENGTH BY 1 GRADE IN 10 WKS Treatment Plan: Modalities to reduce pain, spasms and effusion. Manual therapy to restore motion and function. Therapeutic exercise to improve strength and flexibility. Neuromuscular re-education for posture and balance. Therapeutic activities to return to functional activities of daily living. Electronically signed by: Dulce Izquierdo PT Please sign and return to therapist. Thank you for your referral.
--- NOTE | 2022-10-11 09:59 | MHC.PT.DC ---
[facility] [place] Office [place] Office [place] Office [address] Tana Pompa [address] [phone] F: [phone] F: [phone] F: [phone] F: [phone] Physical Therapy Discharge Report Diagnosis: S/P LEFT TKA Date of Surgery: 08/14/22 Date of Evaluation: 08/29/22 Date of Discharge: 10/11/22 Treatments to Date: 11 Cancellations to Date: 0 No Shows to Date: 0 Discharge Status: Achieved Goals Improved Function Independent with HEP Discharge Summary: He reports feeling good overall, walking for exercise, and has been doing yardwork with no complaints. He is appropriate for d/c secondary to meeting goals, I with HEP and improved functional mobility. He demonstrates good control on stairs and normal gait pattern. LEFS 68/80. Reviewed exercises and no further questions. Electronically signed by: Lorraine Thompson PT Please sign and return to therapist. Thank you for your referral.
== END 2022-10-11 10:11 | disposition home or self-care (01) ==
LOC: HO.PTCHIC 09:00
PROVIDERS: PCP Internal Medicine; Visit Provider Orthopaedic Surgery
DX: Z96.652 Presence of left artificial knee joint (principal)
CPT/HCPCS: 97110; 97112; 97140; 97162; 97530

== ENCOUNTER 2022-11-08 | Outpatient (REF) | payer MEDICARE, SELFPAY ==
--- NOTE | ~2022-11-08 | XR_ITS ---
EXAMINATION: XR KNEE, LEFT XR KNEE AP STANDING CLINICAL INFORMATION: Pain. COMPARISON: Radiographs dated 08/14/2022. TECHNIQUE: Lateral and axial views of the left knee were obtained. AP bilateral standing view of the knees was obtained. FINDINGS: Prosthetic components of the bilateral total knee arthroplasties are appropriately aligned without periprosthetic fracture or abnormal lucency. No component migration. No joint effusion. XR/XR knee standing BI IMPRESSION: Appropriate alignment of the bilateral total knee arthroplasties, without evidence of complications.
--- NOTE | ~2022-11-08 | XR_ITS ---
EXAMINATION: XR KNEE, LEFT XR KNEE AP STANDING CLINICAL INFORMATION: Pain. COMPARISON: Radiographs dated 08/14/2022. TECHNIQUE: Lateral and axial views of the left knee were obtained. AP bilateral standing view of the knees was obtained. FINDINGS: Prosthetic components of the bilateral total knee arthroplasties are appropriately aligned without periprosthetic fracture or abnormal lucency. No component migration. No joint effusion. XR/XR knee LT 2V IMPRESSION: Appropriate alignment of the bilateral total knee arthroplasties, without evidence of complications.
== END 2022-11-08 00:01 | disposition home or self-care (01) ==
LOC: HO.HOSX
PROVIDERS: Visit Provider Orthopaedic Surgery
DX: M25.562 Pain in left knee (principal)
CPT/HCPCS: 73560; 73565

== ENCOUNTER 2023-01-29 05:47 | Outpatient (REF) | payer MEDICARE, SELFPAY ==
--- NOTE | ~2023-01-29 | XR_ITS ---
EXAMINATION: XR HAND, LEFT CLINICAL INFORMATION: M79.641 - Pain in left hand COMPARISON: None TECHNIQUE: PA, lateral, and oblique views of the left hand. FINDINGS: No acute or healing fracture, dislocation, destructive process. Ulnar variance is neutral. There is chondrocalcinosis involving the triangular fibrocartilage. Benign-appearing cystic changes noted distal carpal navicular 0.6 cm in size. There are osteoporotic changes first carpometacarpal joint with faint benign-appearing periarticular soft tissue mineralization and small subchondral cysts base first metacarpal and greater multangular carpal bone. No erosive change. The MCP and interphalangeal joints are unremarkable. XR/XR hand LT min 3V IMPRESSION: 1. No fracture, dislocation, or destructive process. 2. Chondrocalcinosis triangular fibrocartilage. 3. Osteoporotic changes first carpometacarpal joint. 4. 6 mm cyst distal pole carpal navicular.
== END 2023-01-29 05:48 | disposition home or self-care (01) ==
LOC: HO.HOSX 05:47
PROVIDERS: Visit Provider Physician Assistant
DX: M19.042 Primary osteoarthritis, left hand (principal); Z79.899 Other long term (current) drug therapy; Z79.84 Long term (current) use of oral hypoglycemic drugs
CPT/HCPCS: 73130; 99212

== ENCOUNTER → 2023-03-25 08:42 | Outpatient (BNVA) | payer MEDICARE, SELFPAY | PROVIDERS: PCP Internal Medicine; Visit Provider Orthopaedic Surgery | DX: M18.12 Unilateral primary osteoarthritis of first carpometacarpal joint, left hand (principal) | CPT/HCPCS: 20600; 99202; J1020 ==

== ENCOUNTER 2023-12-19 10:54 | Outpatient (AMB) | payer MEDICARE, SELFPAY ==
--- NOTE | 2023-12-19 11:03 | A.OFFVIS_ITS ---
Intake Intake Visit Reasons: BPH w/LUTS (no showed 2x) Intake Note: New Patient presents for initial visit for BPH Urology Medications: tamsulosin Blood Thinner: aspirin Scheduling Assistant Required: No Accompanied by: Self / Same As Patient Allergies No Known Allergies Allergy (Verified 12/19/23 11:53) Medication List - Last Reconciled 12/19/23 by TC Sharma acetaminophen 650 mg (2 x 325 mg) PO Q6H PRN 30 days amlodipine 5 mg PO DAILY aspirin 81 mg PO BID@1030,2230 atorvastatin 1 tab PO BEDTIME furosemide 20 mg PO DAILY lisinopril-hydrochlorothiazide 20-25 mg 1 tab PO DAILY metformin 850 mg PO BID tamsulosin 0.8 mg (2 x 0.4 mg) PO DAILY 30 days HPI HPI Comments History of Present Illness Details Karan is a 68-year-old male patient of Dr. Steen. He has a past medical history of venous stasis dermatitis, hypercholesteremia, diabetes, osteoarthritis, and hypertension. He presents to the office today as a new patient for ongoing lower urinary tract symptoms. In discussion with the patient today he reports following up with his PCP in August of last year for weak urinary stream and urinary hesitancy at which time he was started on Flomax and referral to Urology was made. He reports noting significant improvement in urinary stream with 0.4 mg of Flomax daily. He reports symptoms have been present for quite some time however does feel they were worsening. He otherwise denies incontinence, hematuria, dysuria, foul smelling urine, changes to urinary stream, flank pain, fever, and or chills. PVR 142 mL. Discussed at length potential causes for lower urinary tract symptoms patient is experiencing. Discussed causes and affects of incomplete bladder emptying. Discussed obtaining retroperitoneal ultrasound and PSA for further assessment evaluation. He otherwise denies any bothersome issues or concerns. [facility] Medical History Venous stasis dermatitis High cholesterol Diabetes mellitus Osteoarthritis HTN (hypertension) Osteoarthritis of left knee Surgical History History of left knee replacement History of total right knee replacement History of tonsillectomy Social History Are you a primary long term care administrator to a significant other at home: No Do you presently have visiting nurse or other home services: No Patient Tobacco Use Status: Former Tobacco user Quit Date: 3 yrs ago Tobacco use type: Cigarette Second Hand Smoke Exposure: No service: No Current occupational status: employed 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 Review of Systems Eyes Reports no additional complaints ENT Reports no additional complaints Card Reports as per HPI Resp Reports no additional complaints GI Reports no additional complaints Reports as per HPI Musc Reports as per HPI Neuro Reports no additional complaints Psych Reports no additional complaints Endo Reports as per HPI Juliocesar/Lymph Reports no additional complaints Aller/Immun Reports no additional complaints Physical Exam Const General: cooperative, healthy appearing, comfortable, no acute distress, well developed, alert and awake Nutritional Appearance: overweight Orientation/consciousness: patient oriented x3 Limitations: no limitations HEENT Head: Yes normal to inspection, Yes normocephalic and Yes atraumatic Ears: hearing grossly normal bilaterally Eyes General: appearance normal, both eyes and all related structures Neck Neck: Yes normal visual inspection and Yes trachea midline Chest Chest palpation & inspection: normal inspection of the chest Resp Effort & Inspection: normal respiratory effort and able to speak in complete sentences Cardio Rate: regular rate GI Inspection: Yes normal to inspection General: Yes no CVA tenderness Back/Spine/Pelvis Back: no CVA tenderness Skin General skin exam: no rashes or lesions noted Neuro General: patient oriented x3 Extrem General: Yes normal to inspection Psych Appearance: grossly normal and well kempt Mental Status: mental status grossly normal Speech and movement: Normal speech and movement present and Clear speech present Affect: normal affect Attitude: cooperative Thought process: Normal thought process present Thought content: Normal thought content present Insight: Fair insight present (Psych) Judgement: Fair judgement present (Psych) Office Procedures Post Void Residual Post Residual Void Post Void Residual (PVR): 142 57747-Flcg Void Residual by ultrasound Results AMB Urinalysis, Automated UA Leukoctes 0 Lizz/uL Last Edit by Ning Fletcher on 12/19/23 11:31 UA Nitrite Negative Last Edit by Ning Fletcher on 12/19/23 11:31 UA Urobilinogen 0.2 mg/dL Last Edit by [employer]ight [employer]na Fletcher on 12/19/23 11:31 UA Protein 0 mg/dL Last Edit by Ning Fletcher on 12/19/23 11:31 UA pH 6.5 Last Edit by Ning Fletcher on 12/19/23 11:31 UA Blood 0 Toni/uL Last Edit by Ning Fletcher on 12/19/23 11:31 UA Specific [place] 1.015 Last Edit by Ning Fletcher on 12/19/23 11:31 UA Ketone Negative Last Edit by Ning Fletcher on 12/19/23 11:31 UA Bilirubin 0 mg/dL Last Edit by Ning Fletcher on 12/19/23 11:31 UA Glucose 0 mg/dL Last Edit by Ning Fletcher on 12/19/23 11:31 Results Reviewed Results Reviewed: Laboratory Last Values Urine pH (Auto) 6.5 12/19/23 11:29 Specific [place] (Auto) 1.015 12/19/23 11:29 Urine Protein (Auto) 0 mg/dL 12/19/23 11:29 Glucose (UA)(Auto) 0 mg/dL 12/19/23 11:29 Urine Ketones (Auto) Negative 12/19/23 11:29 Urine Blood (Auto) 0 Toni/uL 12/19/23 11:29 Urine Nitrite (Auto) Negative 12/19/23 11:29 Urine Bilirubin (Auto) 0 mg/dL 12/19/23 11:29 Urine Urobilinogen (Auto) 0.2 mg/dL 12/19/23 11:29 Leukocyte Esterase (Auto) 0 Lizz/uL 12/19/23 11:29 Assessment & Plan Assessment & Plan (1) BPH (benign prostatic hyperplasia): Code(s): N40.0 - Benign prostatic hyperplasia without lower urinary tract symptoms (2) History of urinary hesitancy: Code(s): Z87.898 - Personal history of other specified conditions (3) Weak urinary stream: Code(s): R39.12 - Poor urinary stream Plan In office urinalysis results reviewed with the patient today; as noted above. PVR 142 mL Discussed at length potential causes for lower urinary tract symptoms patient is experiencing. Discussed causes and affects of incomplete bladder emptying. Will increase Flomax from 0.4 mg daily to 0.8 mg daily Will obtain PSA for further assessment evaluation. Will obtain retroperitoneal ultrasound for further assessment evaluation Discussed attempting to sit when voiding to assist with incomplete bladder emptying. Discussed bladder triggers/irritants. Discussed possible near future in office urodynamics and or cystoscopy for further assessment evaluation. Follow-up in 6 weeks with imaging and labs to be completed prior; or sooner with any issues, concerns, and or questions. Orders: Orders AMB Urinalysis Automated 12/19/23 Z13.9 - Encounter for screening, unspecified AMB Post Void Residual by ultrasound 12/19/23 Z13.9 - Encounter for screening, unspecified Prostate Specific Antigen 12/19/23 N40.0 - Benign prostatic hyperplasia without lower urinary tract symptoms US retroperitoneal comp 12/19/23 N40.0 - Benign prostatic hyperplasia without lower urinary tract symptoms Medications: New tamsulosin 0.8 mg (2 x 0.4 mg) PO DAILY 30 days 60 caps 2RF Patient Instructions: The patient had an opportunity to ask questions regarding the treatment plan. All questions were answered. Physical exam, labs, and imaging were discussed and reviewed in detail. As well as risks, benefits, and discussion of treatment choices. No major barriers to understanding were identified. The patient expressed understanding and agreement with the above treatment plan. The patient was made aware they should contact our office by phone for worsening of their current condition, the appearance of new symptoms, or with any questions or concerns. Compliance is encouraged with any medications and follow up testing that is ordered. It is a privilege to be allowed the opportunity to participate in? your urological care.? Again, if you have any questions or concerns If you have any questions or concerns please do not hesitate to contact me. The office is [phone]. This note is constructed using voice recognition software. While every effort has been made to ensure accuracy coring machine operator errors may have been included. Yours sincerely, TC Sharma Coding Level of Care Code New Pt Level 3 (18742) Diagnoses BPH (benign prostatic hyperplasia) N40.0 History of urinary hesitancy Z87.898 Weak urinary stream R39.12 CPT Codes Post Residual Void - PVR CPT Code: 54381-Krkg Void Residual by ultrasound ([id number])
== END 2023-12-19 11:49 | disposition home or self-care (01) ==
PROVIDERS: PCP Internal Medicine; Visit Provider Nurse Practitioner Family
DX: N40.0 Benign prostatic hyperplasia without lower urinary tract symptoms (principal); Z87.898 Personal history of other specified conditions; R39.12 Poor urinary stream
CPT/HCPCS: 99203

== ENCOUNTER → 2023-12-19 10:54 | Outpatient (BNVA) | payer MEDICARE, SELFPAY | PROVIDERS: PCP Internal Medicine; Visit Provider Nurse Practitioner Family | DX: N40.0 Benign prostatic hyperplasia without lower urinary tract symptoms (principal); R39.12 Poor urinary stream; Z87.898 Personal history of other specified conditions | CPT/HCPCS: 51798; 81003; 99202 ==

== ENCOUNTER 2024-01-08 07:49 | Outpatient (REF) | payer MEDICARE, SELFPAY ==
[2024-01-08 12:04] LABS: Alanine Aminotransferase 20 U/L (0-40); Alkaline Phosphatase 62 U/L (39-117); Anion Gap 12 (12-20); Aspartate Amino Transferase 19 U/L (5-37); Bilirubin Total 0.4 mg/dL (0.0-1.0); Blood Urea Nitrogen 22 mg/dL (9-16); Calcium 9.6 mg/dL (8.4-10.2); Carbon Dioxide 28 mmol/L (22-29); Chloride 105 mmol/L (96-108); Estimated Glomerular Filt Rate 56; Glucose Random 99 mg/dL (60-115); Potassium 4.5 mmol/L (3.3-5.1); Sodium 140 mmol/L (135-145); Total Protein 6.7 g/dL (6.5-8.0)
[2024-01-08 12:06] LABS: Estimated Average Glucose 108 mg/dL; Hemoglobin A1c % 5.4 % (<6.0)
[2024-01-08 12:20] LABS: Prostate Specific Antigen 4.16 ng/mL (<0.05-4.0)
== END 2024-01-08 07:50 | disposition home or self-care (01) ==
LOC: HO.HMGCLDS 07:49
PROVIDERS: PCP Internal Medicine; Referring Provider Nurse Practitioner Family; Visit Provider Internal Medicine
DX: Z12.5 Encounter for screening for malignant neoplasm of prostate (principal); N40.0 Benign prostatic hyperplasia without lower urinary tract symptoms; E11.9 Type 2 diabetes mellitus without complications; E78.00 Pure hypercholesterolemia, unspecified; I10 Essential (primary) hypertension
CPT/HCPCS: 36415; 80053; 83036; 84153

== ENCOUNTER 2024-01-16 08:56 | Outpatient (REF) | payer MEDICARE, SELFPAY ==
--- NOTE | ~2024-01-16 | US_ITS ---
EXAMINATION: US RETROPERITONEAL COMPLETE (RENAL) CLINICAL INFORMATION: The pH. COMPARISON: None available. TECHNIQUE: Real-time imaging of the kidneys and bladder. FINDINGS: RIGHT KIDNEY: 10.3 x 5.6 x 5.7 cm (SAG x AP x TRV). The kidney is normal in size, contour, and echogenicity. Renal cortical thickness is normal. No calculi or focal parenchymal lesions. No hydronephrosis. LEFT KIDNEY: 12.1 x 5.7 x 4.7 cm (SAG x AP x TRV). The kidney is normal in size, contour, and echogenicity. Renal cortical thickness is normal. No calculi or focal parenchymal lesions. No hydronephrosis. There is anechoic cyst lower pole measuring 2.9 x 3.4 x 2.9 cm. BLADDER: Well distended and normal. Bilateral ureteral jets are demonstrated. Prevoid bladder volume is 807 mL. Postvoid bladder #1 volume is 457 mL. Post void 3 2. 316 ml volume US/US retroperitoneal comp IMPRESSION: 1. Anechoic cyst lower pole left kidney. 2. The right kidney is unremarkable. 3. There is moderate postvoid residual bladder volume. 4. Normal bilateral ureteral jets seen.
== END 2024-01-16 08:57 | disposition home or self-care (01) ==
LOC: HO.HMGCX 08:56
PROVIDERS: PCP Internal Medicine; Visit Provider Nurse Practitioner Family
DX: N40.0 Benign prostatic hyperplasia without lower urinary tract symptoms (principal)
CPT/HCPCS: 76770

== ENCOUNTER 2024-01-21 09:25 | Outpatient (AMB) | payer MEDICARE, SELFPAY ==
--- NOTE | 2024-01-21 09:30 | MHC.OFFVIS ---
Intake Intake Visit Reasons: 6w/US/PSA(pending 01/16) Intake Note: Patient presents today for follow up visit for BPH, ultrasound and lab results, and weak urinary system Imagin01/16/24 PSA Lab: 4.16 Urology Medications: tamsulosin Blood Thinner: aspirin PVR: 0ml Hair Blender Required: No Accompanied by: Self / Same As Patient Allergies No Known Allergies Allergy (Verified 01/21/24 10:49) Medication List - Last Reconciled 01/21/24 by TC Sharma acetaminophen 650 mg (2 x 325 mg) PO Q6H PRN 30 days amlodipine 5 mg PO DAILY aspirin 81 mg PO BID@1030,2230 atorvastatin 1 tab PO BEDTIME finasteride 5 mg PO DAILY 90 days furosemide 20 mg PO DAILY lisinopril-hydrochlorothiazide 20-25 mg 1 tab PO DAILY metformin 850 mg PO BID tamsulosin 0.8 mg (2 x 0.4 mg) PO DAILY 30 days HPI HPI Comments History of Present Illness Details Karan is a 68-year-old male patient of Dr. Steen. He has a past medical history of venous stasis dermatitis, hypercholesteremia, diabetes, osteoarthritis, and hypertension. He presents to the office today for follow-up. Of note, patient was seen approximately 6 weeks ago as a new patient for ongoing lower urinary tract symptoms at which time a retroperitoneal ultrasound was ordered, PSA, and Flomax was increased to 0.8 mg daily. In discussion with the patient today he reports noting significant improvement in urinary stream as well as urinary hesitancy with 0.8 mg of Flomax daily. Recent retroperitoneal ultrasound results reviewed with the patient today. Bilateral kidneys with no calculi, lesions, and or hydronephrosis. There is an anechoic cyst lower pole measuring approximately 3.4 cm. The bladder is well distended and normal. Bilateral ureteral jets are demonstrated. Pre void bladder volume is approximately 100 mL. Postvoid bladder volume is approximately 300 mL. Prostate volume measures approximately 42 mL. PSA 01/24--4.2. Discussed at length incomplete bladder emptying as well as elevated PSA. Discussed further treatment options with surveillance monitoring verses trial of finasteride verses prostate biopsy. These interventions were discussed at length as well as risks and benefits of these treatment options. He otherwise denies incontinence, hematuria, dysuria, foul smelling urine, changes to urinary stream, flank pain, fever, and or chills. In office urinalysis results reviewed with the patient today. PVR 0 mL. He otherwise denies any bothersome issues or concerns. [facility] Medical History Venous stasis dermatitis High cholesterol Diabetes mellitus Osteoarthritis HTN (hypertension) Osteoarthritis of left knee Surgical History History of left knee replacement History of total right knee replacement History of tonsillectomy Social History Are you a primary managed care specialist to a significant other at home: No Do you presently have visiting nurse or other home services: No Patient Tobacco Use Status: Former Tobacco user Quit Date: 3 yrs ago Tobacco use type: Cigarette Second Hand Smoke Exposure: No service: No Current occupational status: employed 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 Review of Systems Eyes Reports no additional complaints ENT Reports no additional complaints Card Reports as per HPI Resp Reports no additional complaints GI Reports no additional complaints Reports as per HPI Musc Reports as per HPI Neuro Reports no additional complaints Psych Reports no additional complaints Endo Reports as per HPI Juliocesar/Lymph Reports no additional complaints Aller/Immun Reports no additional complaints Physical Exam Const General: cooperative, healthy appearing, comfortable, no acute distress, well developed, alert and awake Nutritional Appearance: overweight Orientation/consciousness: patient oriented x3 Limitations: no limitations HEENT Head: Yes normal to inspection, Yes normocephalic and Yes atraumatic Ears: hearing grossly normal bilaterally Eyes General: appearance normal, both eyes and all related structures Neck Neck: Yes normal visual inspection and Yes trachea midline Chest Chest palpation & inspection: normal inspection of the chest Resp Effort & Inspection: normal respiratory effort and able to speak in complete sentences Cardio Rate: regular rate GI Inspection: Yes normal to inspection General: Yes no CVA tenderness Back/Spine/Pelvis Back: no CVA tenderness Skin General skin exam: no rashes or lesions noted Neuro General: patient oriented x3 Extrem General: Yes normal to inspection Psych Appearance: grossly normal and well kempt Mental Status: mental status grossly normal Speech and movement: Normal speech and movement present and Clear speech present Affect: normal affect Attitude: cooperative Thought process: Normal thought process present Thought content: Normal thought content present Insight: Fair insight present (Psych) Judgement: Fair judgement present (Psych) Office Procedures Post Void Residual Post Residual Void Post Void Residual (PVR): 0 [id number]-Knam Void Residual by ultrasound Results AMB Urinalysis, Automated UA Leukoctes 0 Lizz/uL Last Edit by Kristine Burt [facility] on 01/21/24 09:39 UA Nitrite Negative Last Edit by Kristine Burtjuan Burt, [facility] on 01/21/24 09:39 UA Urobilinogen 0.2 mg/dL Last Edit [facility] on 01/21/24 09:39 UA Protein 0 mg/dL Last Edit by Kristine Burt Burt [facility] on 01/21/24 09:39 UA pH 7.5 Last Edit by Kristine Burtjuan Burt, [facility] on 01/21/24 09:39 UA Blood 0 Toni/uL Last Edit by Kristine Burtjuan Burt [facility] on 01/21/24 09:39 UA Specific [place] 1.010 Last Edit by Kristine Burtjuan Burt [facility] on 01/21/24 09:39 UA Ketone Negative Last Edit by [facility], [facility] on 01/21/24 09:39 UA Bilirubin 0 mg/dL Last Edit by [facility] on 01/21/24 09:39 UA Glucose 0 mg/dL Last Edit by [facility], [facility] on 01/21/24 09:39 Results Reviewed Results Reviewed: Laboratory Last Values Urine pH (Auto) 7.5 01/21/24 09:31 Specific [place] (Auto) 1.010 01/21/24 09:31 Urine Protein (Auto) 0 mg/dL 01/21/24 09:31 Glucose (UA)(Auto) 0 mg/dL 01/21/24 09:31 Urine Ketones (Auto) Negative 01/21/24 09:31 Urine Blood (Auto) 0 Toni/uL 01/21/24 09:31 Urine Nitrite (Auto) Negative 01/21/24 09:31 Urine Bilirubin (Auto) 0 mg/dL 01/21/24 09:31 Urine Urobilinogen (Auto) 0.2 mg/dL 01/21/24 09:31 Leukocyte Esterase (Auto) 0 Lizz/uL 01/21/24 09:31 Date of Service: 01/16/24 EXAMINATION: US RETROPERITONEAL COMPLETE (RENAL) FINDINGS: RIGHT KIDNEY: 10.3 x 5.6 x 5.7 cm (SAG x AP x TRV). The kidney is normal in size, contour, and echogenicity. Renal cortical thickness is normal. No calculi or focal parenchymal lesions. No hydronephrosis. LEFT KIDNEY: 12.1 x 5.7 x 4.7 cm (SAG x AP x TRV). The kidney is normal in size, contour, and echogenicity. Renal cortical thickness is normal. No calculi or focal parenchymal lesions. No hydronephrosis. There is anechoic cyst lower pole measuring 2.9 x 3.4 x 2.9 cm. BLADDER: Well distended and normal. Bilateral ureteral jets are demonstrated. Prevoid bladder volume is 807 mL. Postvoid bladder #1 volume is 457 mL. Post void 3 2. 316 ml volume IMPRESSION: 1. Anechoic cyst lower pole left kidney. 2. The right kidney is unremarkable. 3. There is moderate postvoid residual bladder volume. 4. Normal bilateral ureteral jets seen. Assessment & Plan Assessment & Plan (1) Elevated PSA: Code(s): R97.20 - Elevated prostate specific antigen [PSA] Plan In office urinalysis results reviewed with the patient today. PVR 0 mL. Continue 0.8 mg of Flomax daily as discussed. Recent PSA results reviewed with the patient today; as noted above Recent retroperitoneal ultrasound results reviewed with the patient today; as noted above. Start finasteride 5 mg as discussed and prescribed. Discussed at length potential causes and affects of incomplete bladder emptying as well as elevated PSA Discussed risks and benefits of further treatment options for elevated PSA; as noted above Discussed lifestyle modifications to assist with incomplete bladder emptying. Will obtain PSA in 4 months. Follow-up in 4 months with lab to be completed prior; or sooner with any issues, concerns, and or questions. Orders: Orders AMB Post Void Residual by ultrasound Today R33.9 - Retention of urine, unspecified PSA,Total (Free>4and<10) 4 Months R97.20 - Elevated prostate specific antigen [PSA] AMB Urinalysis Automated Today R33.9 - Retention of urine, unspecified Medications: New finasteride 5 mg PO DAILY 90 days 90 tabs 1RF Changed From tamsulosin 0.8 mg (2 x 0.4 mg) PO DAILY 30 days 60 caps 2RF To tamsulosin 0.8 mg (2 x 0.4 mg) PO DAILY 180 caps 2RF 90 days Patient Instructions: The patient had an opportunity to ask questions regarding the treatment plan. All questions were answered. Physical exam, labs, and imaging were discussed and reviewed in detail. As well as risks, benefits, and discussion of treatment choices. No major barriers to understanding were identified. The patient expressed understanding and agreement with the above treatment plan. The patient was made aware they should contact our office by phone for worsening of their current condition, the appearance of new symptoms, or with any questions or concerns. Compliance is encouraged with any medications and follow up testing that is ordered. It is a privilege to be allowed the opportunity to participate in? your urological care.? Again, if you have any questions or concerns If you have any questions or concerns please do not hesitate to contact me. The office is [phone]. This note is constructed using voice recognition software. While every effort has been made to ensure accuracy boat camp operator errors may have been included. Yours sincerely, TC Sharma Coding Level of Care Code Est Pt Level 4 (75963) Diagnoses Elevated PSA R97.20 CPT Codes Post Residual Void - PVR CPT Code: 11238-Cokn Void Residual by ultrasound ([id number])
== END 2024-01-21 10:04 | disposition home or self-care (01) ==
PROVIDERS: PCP Internal Medicine; Visit Provider Nurse Practitioner Family
DX: R33.9 Retention of urine, unspecified (principal); R97.20 Elevated prostate specific antigen [PSA]
CPT/HCPCS: 99214

== ENCOUNTER → 2024-01-21 09:25 | Outpatient (BNVA) | payer MEDICARE, SELFPAY | PROVIDERS: PCP Internal Medicine; Visit Provider Nurse Practitioner Family | DX: R97.20 Elevated prostate specific antigen [PSA] (principal) | CPT/HCPCS: 51798; 81003; 99212 ==

== ENCOUNTER 2024-02-03 15:15 | Outpatient (AMB) | payer MEDICARE, SELFPAY ==
[2024-02-03 15:38] VITALS: BMI 34.2
--- NOTE | 2024-02-03 15:38 | A.OFFVIS_ITS ---
Intake Vital Signs 02/03/24 15:38 Height 5 ft 11 in Weight 245 lb BMI 34.2 Intake Visit Reasons: OV-LT thumb CMC arthritis Intake Note: Brayden 68 yr old male presents today S/P left basal joint injection from 03/25/23. States injection helped until recently and would like to repeat. Allergies No Known Allergies Allergy (Verified 02/03/24 15:41) HPI OV-LT thumb CMC arthritis HPI Details Brayden is a 68 year old right hand dominant man who returns to discuss his left basal joint OA. He was last seen, and injected, on 03/25/23 with good relief. He has pain with pinching and gripping activities, and says this pain has recently returned. 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 [facility] Medical History Venous stasis dermatitis High cholesterol Diabetes mellitus Osteoarthritis HTN (hypertension) Osteoarthritis of left knee Surgical History History of left knee replacement History of total right knee replacement History of tonsillectomy Social History Are you a primary critical care cns to a significant other at home: No Do you presently have visiting nurse or other home services: No Patient Tobacco Use Status: Former Tobacco user Quit Date: 3 yrs ago Tobacco use type: Cigarette Second Hand Smoke Exposure: No service: No Current occupational status: employed 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 Review of Systems Const All systems reviewed & are unremarkable except as noted in HPI and below Physical Exam Vital Signs: BMI result Body Mass Index 34.2 Const General: no acute distress and alert Orientation/consciousness: patient oriented x3 Neuro General: patient oriented x3 Extrem Other: Evaluation of Left Upper Extremity: The patient is alert, oriented, and in no acute distress Neuro: Median, Ulnar, Radial nerves motor and sensory intact and sensation is no rmal to the tips of all digits Vascular: Cap refill brisk ROM: He can make a fist and extend all his digits Tender over the basal joint + CMC grind + Shoulder sign No locking or catching No tenderness over the 1st dorsal compartment No tenderness over the MCP joint or A1 shayy MCp joint was stable Radiographs: 3 views of the left thumb from 01/29/23 were reviewed by me today in clinic. They show left basal joint arthritis with joint space narrowing, subchondral sclerosis and early osteophyte formation. Psych Appearance: grossly normal Affect: normal affect Attitude: cooperative Office Procedures Fracture Care Details: No fracture, injection Fracture Billing Code: Fracture Billing Code Assessment & Plan Assessment & Plan (1) Arthritis of carpometacarpal (CMC) joint of left thumb: Code(s): M18.12 - Unilateral primary osteoarthritis of first carpometacarpal joint, left hand Plan Assessment & Plan: 1. Left basal joint osteoarthritis, S/P injection Date of injections: 02/03/24, 03/25/23 I educated him about this condition I recommend a steroid injection today, and he is in agreement I discussed activity modification, he is to limit or avoid any heavy or repetitive pinching or gripping activities He will continue to wear his comfort cool brace with daily activity, prn Injection #1 : The risks and benefits of a steroid injection including but not limited to risk of damage to blood vessels, nerve, tendon, infection, skin bleaching, persistent or worsening pain, and failure to improve symptoms were discussed with the patient and they wish to proceed with the steroid injection. Once consent was obtained the skin over the dorsum of the Left basal joint was sterilely prepped. The joint was then injected with a combination of 1 mL of (40 mg/ml} Depo-Medrol and 1% plain Lidocaine. The patient appears to have tolerated the procedure well and with no complications. He had good early relief before leaving clinic today. He knows that they may not have another steroid injection into this joint for least 4 months. Follow up p.r.n. Scribed for Jennifer Vasques MD by Farhad Baumann, front office medical assistant, on 02/03/24 at 4:10 PM, EST. Coding Level of Care Code Est Pt Level 3 (81083) Diagnoses Arthritis of carpometacarpal (CMC) joint of left thumb M18.12 CPT Codes Fracture Care - Fracture Billing Code: Fracture Billing Code ([id number])
== END 2024-02-03 16:15 | disposition home or self-care (01) ==
PROVIDERS: PCP Internal Medicine; Visit Provider Orthopaedic Surgery
DX: M18.12 Unilateral primary osteoarthritis of first carpometacarpal joint, left hand (principal)
CPT/HCPCS: 20600; 99213

== ENCOUNTER → 2024-02-03 15:15 | Outpatient (BNVA) | payer MEDICARE, SELFPAY | PROVIDERS: PCP Internal Medicine; Visit Provider Orthopaedic Surgery | DX: M18.12 Unilateral primary osteoarthritis of first carpometacarpal joint, left hand (principal) | CPT/HCPCS: 20600; 99212; J1020 ==

== ENCOUNTER 2024-05-05 08:56 | Outpatient (REF) | payer MEDICARE, SELFPAY ==
[2024-05-05 10:50] LABS: Estimated Average Glucose 108 mg/dL; Hemoglobin A1c % 5.4 % (<6.0)
[2024-05-05 10:59] LABS: Alanine Aminotransferase 18 U/L (0-40); Alkaline Phosphatase 59 U/L (39-117); Anion Gap 12 (12-20); Aspartate Amino Transferase 15 U/L (5-37); Bilirubin Total 0.5 mg/dL (0.0-1.0); Blood Urea Nitrogen 24 mg/dL (9-16); Calcium 9.2 mg/dL (8.4-10.2); Carbon Dioxide 24 mmol/L (22-29); Chloride 108 mmol/L (96-108); Estimated Glomerular Filt Rate 53; Glucose Random 102 mg/dL (60-115); Potassium 4.1 mmol/L (3.3-5.1); Sodium 140 mmol/L (135-145); Total Protein 6.3 g/dL (6.5-8.0)
== END 2024-05-05 08:57 | disposition home or self-care (01) ==
LOC: HO.HMGCLDS 08:56
PROVIDERS: PCP Internal Medicine; Referring Provider Nurse Practitioner Family; Visit Provider Internal Medicine
DX: I12.9 Hypertensive chronic kidney disease with stage 1 through stage 4 chronic kidney disease, or unspecified chronic kidney disease (principal); E11.22 Type 2 diabetes mellitus with diabetic chronic kidney disease; N18.9 Chronic kidney disease, unspecified; R97.20 Elevated prostate specific antigen [PSA]
CPT/HCPCS: 36415; 80053; 83036

== ENCOUNTER 2024-05-20 10:31 | Outpatient (REF) | payer MEDICARE, SELFPAY ==
[2024-05-20 13:53] LABS: PSA,Total (Free>4and<10) 1.59 ng/mL (0.00-4.00)
== END 2024-05-20 10:32 | disposition home or self-care (01) ==
LOC: HO.HMGCLDS 10:31
PROVIDERS: PCP Internal Medicine; Visit Provider Nurse Practitioner Family
DX: R97.20 Elevated prostate specific antigen [PSA] (principal); Z12.5 Encounter for screening for malignant neoplasm of prostate
CPT/HCPCS: 36415; 84153

== ENCOUNTER 2024-05-21 09:05 | Outpatient (AMB) | payer MEDICARE, SELFPAY ==
--- NOTE | 2024-05-21 09:15 | A.OFFVIS_ITS ---
Intake Visit Reasons: 4m/PSA/PVR Intake Note: Patient presents today for follow up visit for BPH, lab results, and weak urinary system PSA Lab: 1.59 Urology Medications: tamsulosin and finasteride Blood Thinner: aspirin PVR: 0ml's Manager Life Required: No Accompanied by: Self / Same As Patient Allergies No Known Allergies Allergy (Verified 05/22/24 15:38) Medication List - Last Reconciled 05/21/24 by TC Sharma acetaminophen 650 mg (2 x 325 mg) PO Q6H PRN 30 days amlodipine 5 mg PO DAILY aspirin 81 mg PO BID@1030,2230 atorvastatin 1 tab PO BEDTIME finasteride 5 mg PO DAILY 90 days furosemide 20 mg PO DAILY lisinopril-hydrochlorothiazide 20-25 mg 1 tab PO DAILY metformin 850 mg PO BID tamsulosin 0.8 mg (2 x 0.4 mg) PO DAILY 90 days HPI Comments Details: Karan is a 69-year-old male patient of Dr. Steen. He has a past medical history of venous stasis dermatitis, hypercholesteremia, diabetes, osteoarthritis, and hypertension. He presents to the office today for follow-up of his elevated PSA and lower urinary tract symptoms. In discussion with the patient today reports to be doing feeling well. He reports compliance with finasteride and Flomax as prescribed. He currently denies any bothersome urinary issues or concerns. Previous workup has included a retroperitoneal ultrasound noting blateral kidneys with no calculi, lesions, and or hydronephrosis. There is an anechoic cyst lower pole measuring approximately 3.4 cm. The bladder is well distended and normal. Bilateral ureteral jets are demonstrated. Pre void bladder volume is approximately 100 mL. Postvoid bladder volume is approximately 300 mL. Prostate volume measures approximately 42 mL. Recent PSA results reviewed with the patient today. As noted and trended below. PSAs: 01/24 4.2 05/24 1.6 In office urinalysis results reviewed with the patient today. PVR 0mls. He otherwise denies incontinence, hematuria, dysuria, foul smelling urine, changes to urinary stream, flank pain, fever, and or chills. He otherwise denies any bothersome issues or concerns. 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 Review of Systems Eyes Reports no additional complaints ENT Reports no additional complaints Card Reports as per HPI Resp Reports no additional complaints GI Reports no additional complaints Reports as per HPI Musc Reports as per HPI Neuro Reports no additional complaints Psych Reports no additional complaints Endo Reports as per HPI Juliocesar/Lymph Reports no additional complaints Aller/Immun Reports no additional complaints Physical Exam Const General: cooperative, healthy appearing, comfortable, no acute distress, well developed, alert and awake Nutritional Appearance: overweight Orientation/consciousness: patient oriented x3 Limitations: no limitations HEENT Head: Yes normal to inspection, Yes normocephalic and Yes atraumatic Ears: hearing grossly normal bilaterally Eyes General: appearance normal, both eyes and all related structures Neck Neck: Yes normal visual inspection and Yes trachea midline Chest Chest palpation & inspection: normal inspection of the chest Resp Effort & Inspection: normal respiratory effort and able to speak in complete sentences Cardio Rate: regular rate GI Inspection: Yes normal to inspection General: Yes no CVA tenderness Back/Spine/Pelvis Back: no CVA tenderness Skin General skin exam: no rashes or lesions noted Neuro General: patient oriented x3 Extrem General: Yes normal to inspection Psych Appearance: grossly normal and well kempt Mental Status: mental status grossly normal Speech and movement: Normal speech and movement present and Clear speech present Affect: normal affect Attitude: cooperative Thought process: Normal thought process present Thought content: Normal thought content present Insight: Fair insight present (Psych) Judgement: Fair judgement present (Psych) Office Procedures Post Void Residual Post Residual Void Post Void Residual (PVR): 0 [id number] Void Residual by ultrasound Results AMB Urinalysis, Automated UA Leukoctes 0 Lizz/uL Last Edit by Ning Fletcher on 05/21/24 09:52 UA Nitrite Negative Last Edit by Ning Fletcher on 05/21/24 09:52 UA Urobilinogen 0.2 mg/dL Last Edit by USB Promosarianna Swogoteofilo on 05/21/24 09:52 UA Protein 0 mg/dL Last Edit by NewsBreakteofilo on 05/21/24 09:52 UA pH 6.0 Last Edit by LigerTailinocente Fletcher on 05/21/24 09:52 UA Blood 0 Toni/uL Last Edit by USB Promosarianna Fletcher on 05/21/24 09:52 UA Specific [place] 1.015 Last Edit by Ning Fletcher on 05/21/24 09:52 UA Ketone Negative Last Edit by LigerTailinocente Fletcher on 05/21/24 09:52 UA Bilirubin 0 mg/dL Last Edit by NewsBreakteofilo on 05/21/24 09:52 UA Glucose 0 mg/dL Last Edit by USB Promosarianna Fletcher on 05/21/24 09:52 Results Reviewed Results Reviewed: Laboratory Last Values Urine pH (Auto) 6.0 05/21/24 09:50 Specific [place] (Auto) 1.015 05/21/24 09:50 Urine Protein (Auto) 0 mg/dL 05/21/24 09:50 Glucose (UA)(Auto) 0 mg/dL 05/21/24 09:50 Urine Ketones (Auto) Negative 05/21/24 09:50 Urine Blood (Auto) 0 Toni/uL 05/21/24 09:50 Urine Nitrite (Auto) Negative 05/21/24 09:50 Urine Bilirubin (Auto) 0 mg/dL 05/21/24 09:50 Urine Urobilinogen (Auto) 0.2 mg/dL 05/21/24 09:50 Leukocyte Esterase (Auto) 0 Lizz/uL 05/21/24 09:50 Assessment & Plan Assessment & Plan (1) Elevated PSA: Code(s): R97.20 - Elevated prostate specific antigen [PSA] Category: Medical (2) Weak urinary stream: Code(s): R39.12 - Poor urinary stream Category: Medical (3) History of urinary hesitancy: Code(s): Z87.898 - Personal history of other specified conditions Category: Medical (4) BPH (benign prostatic hyperplasia): Code(s): N40.0 - Benign prostatic hyperplasia without lower urinary tract symptoms Category: Medical Plan In office urinalysis results reviewed with the patient today; as noted above. PVR 0 mL. Recent PSA results reviewed with the patient today; as noted above. Continue finasteride and Flomax as prescribed; refills provided Patient reports be happy with current voiding parameters. Currently denies any bothersome urinary issues or concerns. Will obtain PSA in 6 months. Follow-up in 6 months with lab to be completed prior and PVR at next office visit; or sooner with any issues, concerns, and or questions. Orders: Orders Prostate Specific Antigen 6 Months R97.20 - Elevated prostate specific antigen [PSA] AMB Post Void Residual by ultrasound 05/21/24 R39.12 - Poor urinary stream AMB Urinalysis Automated 05/21/24 Z13.9 - Encounter for screening, unspecified Medications: Refilled tamsulosin 0.8 mg (2 x 0.4 mg) PO DAILY 90 days 180 caps 3RF finasteride 5 mg PO DAILY 90 days 90 tabs 2RF Patient Instructions: The patient had an opportunity to ask questions regarding the treatment plan. All questions were answered. Physical exam, labs, and imaging were discussed and reviewed in detail. As well as risks, benefits, and discussion of treatment choices. No major barriers to understanding were identified. The patient expressed understanding and agreement with the above treatment plan. The patient was made aware they should contact our office by phone for worsening of their current condition, the appearance of new symptoms, or with any questions or concerns. Compliance is encouraged with any medications and follow up testing that is ordered. It is a privilege to be allowed the opportunity to participate in? your urological care.? Again, if you have any questions or concerns If you have any questions or concerns please do not hesitate to contact me. The office is [phone]. This note is constructed using voice recognition software. While every effort has been made to ensure accuracy maintenance mechanic errors may have been included. Yours sincerely, SANTIAGO Sharma-BC Coding Level of Care Code Est Pt Level 3 (30934) Diagnoses Elevated PSA R97.20 Weak urinary stream R39.12 History of urinary hesitancy Z87.898 BPH (benign prostatic hyperplasia) N40.0 CPT Codes Post Residual Void - PVR CPT Code: 45618-Deit Void Residual by ultrasound ([id number])
== END 2024-05-21 09:39 | disposition home or self-care (01) ==
PROVIDERS: PCP Internal Medicine; Visit Provider Nurse Practitioner Family
DX: R97.20 Elevated prostate specific antigen [PSA] (principal); R39.12 Poor urinary stream; Z87.898 Personal history of other specified conditions; N40.0 Benign prostatic hyperplasia without lower urinary tract symptoms
CPT/HCPCS: 99213

== ENCOUNTER → 2024-05-21 09:05 | Outpatient (BNVA) | payer MEDICARE, SELFPAY | PROVIDERS: PCP Internal Medicine; Visit Provider Nurse Practitioner Family | DX: R97.20 Elevated prostate specific antigen [PSA] (principal); R39.12 Poor urinary stream; N40.0 Benign prostatic hyperplasia without lower urinary tract symptoms; Z87.898 Personal history of other specified conditions | CPT/HCPCS: 51798; 81003; 99212 ==

== ENCOUNTER 2024-09-09 08:28 | Outpatient (REF) | payer MEDICARE, SELFPAY ==
[2024-09-09 10:06] LABS: MANUAL DIFF FLAG NO
[2024-09-09 10:13] LABS: Basophils Percent Auto 0.7 % (0-2); Eosinophils Absolute Auto 0.2 X10*3/uL (0.0-0.4); Eosinophils Percent Auto 3.3 % (0-4); Hematocrit 38.7 % (42.0-52.0); Hemoglobin 12.8 g/dl (14.0-18.0); Imm Gran Abs Auto 0.02 X10*3/uL (0.00-0.03); Imm Gran Pct Auto 0.4 % (0.0-0.4); Lymphocytes Absolute Auto 1.3 X10*3/uL (1.2-4.9); Lymphocytes Percent Auto 29.6 % (20-40); Mean Corpuscular HGB Conc 33.1 g/dl (31.0-36.0); Mean Corpuscular Hemoglobin 29.4 pg (27.0-33.0); Mean Platelet Volume 11.3 fL (9.4-12.4); Monocytes Absolute Auto 0.5 X10*3/uL (0.1-1.2); Monocytes Percent Auto 11.7 % (2-11); Neutrophils Absolute Auto 2.5 x10*3/uL (2.0-8.3); Neutrophils Percent Auto 54.3 % (45-73); Platelet Count 163 X10*3/uL (160-400); Red Blood Count 4.35 X10*6/uL (4.60-5.80); Red Cell Distribution Width 13.5 % (11.0-16.0); White Blood Count 4.5 X10*3/uL (4.8-10.8)
[2024-09-09 10:18] LABS: Estimated Average Glucose 111 mg/dL; Hemoglobin A1C 119.1377 umol/L; Hemoglobin A1c % 5.5 % (<6.0); Total Hemoglobin (HGBA1C) 3278.7328 umol/L
[2024-09-09 10:56] LABS: Prostate Specific Antigen 1.53 ng/mL (<0.05-4.0)
[2024-09-09 11:02] LABS: Alanine Aminotransferase 20 U/L (0-40); Alkaline Phosphatase 61 U/L (39-117); Anion Gap 9 (12-20); Aspartate Amino Transferase 17 U/L (5-37); Bilirubin Total 0.4 mg/dL (0.0-1.0); Blood Urea Nitrogen 21 mg/dL (9-16); Calcium 9.1 mg/dL (8.4-10.2); Carbon Dioxide 28 mmol/L (22-29); Chloride 107 mmol/L (96-108); Cholesterol 135 mg/dL (<200); Estimated Glomerular Filt Rate 53; Glucose Random 96 mg/dL (60-115); HDL Cholesterol 49 mg/dL (>40); LDL Cholesterol Calculated 73 mg/dL (<100); Potassium 4.4 mmol/L (3.3-5.1); Sodium 140 mmol/L (135-145); Total Protein 6.4 g/dL (6.5-8.0); Triglycerides 65 mg/dL (<150)
[2024-09-09 11:30] LABS: Creatinine Urine 69.48 mg/dL; Microalbumin Urine < 5.0 mg/L
== END 2024-09-09 08:29 | disposition home or self-care (01) ==
LOC: HO.HMGCLDS 08:28
PROVIDERS: PCP Internal Medicine; Visit Provider Internal Medicine
DX: E11.9 Type 2 diabetes mellitus without complications (principal); I12.9 Hypertensive chronic kidney disease with stage 1 through stage 4 chronic kidney disease, or unspecified chronic kidney disease; M76.61 Achilles tendinitis, right leg; R60.0 Localized edema; Z12.5 Encounter for screening for malignant neoplasm of prostate
CPT/HCPCS: 36415; 80053; 80061; 82043; 82570; 83036; 84153; 85025

== ENCOUNTER 2024-10-13 12:15 | Outpatient (AMB) | payer MEDICARE, SELFPAY ==
[2024-10-13 12:37] VITALS: BMI 34.2
--- NOTE | 2024-10-13 12:37 | MHC.OFFVIS ---
Vital Signs 10/13/24 12:37 Height 5 ft 11 in Weight 245 lb BMI 34.2 Intake Visit Reasons: OV- Left thumb CMC arthritis, injection request Intake Note: Brayden is a 69 year old male presents who presents today S/P left basal joint injection from 02/03/24. Patient states the injection helped until recently and would like to repeat today. Allergies No Known Allergies Allergy (Verified 10/13/24 12:37) HPI HPI OV- Left thumb CMC arthritis, injection request: Details: Brayden is a 68 year old right hand dominant man who would like to discuss another injection for his left basal joint OA. He was last seen, and injected, on 02/03/2024 with good relief. He said he was doing well until about a month ago when he was holding hands with his and she slipped and fell and accidentally grabbed his thumb. 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 [facility] Medical History Venous stasis dermatitis High cholesterol Diabetes mellitus Osteoarthritis HTN (hypertension) Osteoarthritis of left knee Surgical History History of left knee replacement History of total right knee replacement History of tonsillectomy Social History Are you a primary out of school hours care worker to a significant other at home: No Do you presently have visiting nurse or other home services: No Patient Tobacco Use Status: Former Tobacco user Tobacco use type: Cigarette Second Hand Smoke Exposure: No service: No Current occupational status: employed 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 Left upper extremity exam: Median ulnar radial nerve motor and sensory were grossly intact. He can actively extend all of his digits and bring them close to a fist. No locking or catching. Most Tender over the left basal joint + CMC grind + Shoulder sign No locking or catching No tenderness over the 1st dorsal compartment No tenderness over the MCP joint or A1 shayy MCp joint was stable Radiographs: 3 views of the left thumb from 01/29/23 were reviewed by me today in clinic. They show left basal joint arthritis with joint space narrowing, subchondral sclerosis and early osteophyte formation. Assessment & Plan Assessment & Plan (1) Arthritis of carpometacarpal (CMC) joint of left thumb: Code(s): M18.12 - Unilateral primary osteoarthritis of first carpometacarpal joint, left hand Category: Medical Plan Assessment & Plan: 1. Left basal joint osteoarthritis, S/P injection Date of injections: 10/13/2024, 02/03/24, and 03/25/23 I educated him about this condition We discussed the risks and benefits of a steroid injection he would like to proceed with the injection today. I discussed activity modification, he is to limit or avoid any heavy or repetitive pinching or gripping activities We provided him with a new Velcro thumb spica splint to wear with daytime activities when symptomatic. Injection #1 : The risks and benefits of a steroid injection including but not limited to risk of damage to blood vessels, nerve, tendon, infection, skin bleaching, persistent or worsening pain, and failure to improve symptoms were discussed with the patient and they wish to proceed with the steroid injection. Once consent was obtained the skin over the dorsum of the Left basal joint was sterilely prepped. The joint was then injected with a combination of 1 mL of (40 mg/ml} Depo-Medrol and 1% plain Lidocaine. The patient appears to have tolerated the procedure well and with no complications. He had good early relief before leaving clinic today. He knows that they may not have another steroid injection into this joint for least 4 months. Follow up p.r.n. Coding Level of Care Code Est Pt Level 3 (87931) Diagnoses Arthritis of carpometacarpal (CMC) joint of left thumb M18.12
== END 2024-10-13 13:27 | disposition home or self-care (01) ==
PROVIDERS: PCP Internal Medicine; Visit Provider Orthopaedic Surgery
DX: M18.12 Unilateral primary osteoarthritis of first carpometacarpal joint, left hand (principal)
CPT/HCPCS: 99213

== ENCOUNTER → 2024-10-13 12:15 | Outpatient (BNVA) | payer MEDICARE, SELFPAY | PROVIDERS: PCP Internal Medicine; Visit Provider Orthopaedic Surgery | DX: M18.12 Unilateral primary osteoarthritis of first carpometacarpal joint, left hand (principal) | CPT/HCPCS: 20600; 99212; J1010; J2003 ==

== ENCOUNTER 2024-10-18 08:39 | Outpatient (REF) | payer MEDICARE, SELFPAY | END 2024-10-18 08:40 | disposition home or self-care (01) | LOC: HO.HOSX 08:39 | PROVIDERS: Visit Provider Orthopaedic Surgery | DX: M25.561 Pain in right knee (principal); Z96.653 Presence of artificial knee joint, bilateral | CPT/HCPCS: 73562; 99212 ==

== ENCOUNTER 2024-10-18 09:24 | Outpatient (AMB) | payer MEDICARE, SELFPAY ==
[2024-10-18 09:33] VITALS: BMI 34.2
--- NOTE | 2024-10-18 09:33 | A.OFFVIS_ITS ---
Vital Signs 10/18/24 09:33 Height 5 ft 11 in Weight 245 lb BMI 34.2 Intake Visit Reasons: OV - Right Knee Pain - Hx of TKA 1993 Intake Note: Brayden is a 69 year old male who presents today for a follow up of his right knee. Hx of Right TKA [address] Rodriguez. Patient reports increased pain. XR updated today in office. Patient reports that he has had increased pain on the lateral aspect of the knee for about 2 months now. The pain is intermittent and worsens with gait initiation after sitting but pain resolves with movement. The knee will occasionally give out on him but he has not taken any falls. Denies numbness and tingling. Left TKA 08/13/22 Allergies No Known Allergies Allergy (Verified 10/18/24 09:36) HPI HPI OV - Right Knee Pain - Hx of TKA 1993: Details: Brayden is a 69 year old male who presents today for a follow up of his right knee. Hx of Right TKA [address] Rodriguez. Patient reports increased pain. XR updated today in office. Patient reports that he has had increased pain on the lateral aspect of the knee for about 2 months now. The pain is intermittent and worsens with gait initiation after sitting but pain resolves with movement. The knee will occasionallyl give out on him but he has not taken any falls. Denies numbness and tingling. Left TKA 08/13/22 [facility] Medical History Venous stasis dermatitis High cholesterol Diabetes mellitus Osteoarthritis HTN (hypertension) Osteoarthritis of left knee Surgical History History of left knee replacement History of total right knee replacement History of tonsillectomy Social History Are you a primary career coach to a significant other at home: No Do you presently have visiting nurse or other home services: No Patient Tobacco Use Status: Former Tobacco user Tobacco use type: Cigarette Second Hand Smoke Exposure: No service: No Current occupational status: employed 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 Status post bilateral TKA. Left knee in anatomic position. Right knee with no obvious change in alignment but minimal bone at the prosthetic bone interface on the femur with osteolysis present Assessment & Plan Assessment & Plan (1) History of bilateral knee replacement: Code(s): Z96.653 - Presence of artificial knee joint, bilateral Category: Surgical Plan: This is a 69-year-old with history bilateral knee replacements. His left knee is stable and doing well. His right knee is occasionally painful but only for the last several months. He had this done in 1993 and radiographs do suggest loosening but his symptoms have only been present for a short while. I did discuss that I think he will likely require revision arthroplasty but no intervention warranted at this time. I would like to see him back in 6 months. Orders: Orders XR knee LT 3V Today M25.562 - Pain in left knee XR knee RT 3V Today M25.561 - Pain in right knee Coding Level of Care Code Est Pt Level 3 (13795) Diagnoses History of bilateral knee replacement Z96.653
== END 2024-10-18 09:56 | disposition home or self-care (01) ==
PROVIDERS: PCP Internal Medicine; Visit Provider Orthopaedic Surgery
DX: M25.561 Pain in right knee (principal); Z96.653 Presence of artificial knee joint, bilateral
CPT/HCPCS: 99212

== ENCOUNTER 2024-11-29 08:42 | Outpatient (REF) | payer MEDICARE, SELFPAY ==
--- OUTSIDE RECORDS SUMMARY | 2024-11-29 08:46 | XMS_ITS ---
Author Organization [facility] Address [address] [place] [address] Care Team Providers Care It Service Continuity Supervisor Name Role Phone Lacy Steen Primary Care Provider Unavailab Analia Núñez Unavailable [phone] Allergies No Known Allergies Results Component Value Reference Range Notes X ray : Foot, right 3V Reviewed date:09/23/2024 12:31:17 PM Interpretation:See Examination above Performing Lab: Notes/Report: See Examination above REASON FOR VISIT Heel pain, At Risk Footcare, Skin Problem Medications Medication SIG (Take, Route, Frequency, Duration) Notes Start Date End Date Status Night Splint AFO - L1930 1 wear at rest for 30 days Active metFORMIN HCl 850 MG as directed Orally Twice a day for 30 days Active Tamsulosin HCl 0.4 MG 1 capsule Orally O nce a day Active amLODIPine Besylate 5 MG 1 tablet Orally Once a day Active Finasteride 5 MG 1 tablet Orally Once a day Active Aspirin 81 MG 1 tablet Orally Once a day Active Atorvastatin Calcium 20 MG 1 tablet Oral ly Once a day Active Lisinopril-hydroCHLOROthia zide 20-25 MG 1 tablet Orally Once a day for 30 day(s) Active Furosemide 20 MG 1 tablet Orally Once a day for 30 day(s) Unknown Simvastatin 80 MG 1 tablet every eveni ng Orally Once a day for 30 day(s) Unknown Ciclopirox Olamine 0.77 % 1 application Externally Twice a day to skin of feet including between the toes for 30 days Active Social History Tobacco Use: Social History Observation Description Date Details (start date - stop date) Former Smoker NA - NA Tobacco Use/Smoking Question Answer Notes Are you a: former smoker Additional Findings: Tobacco Non-User Current no n-smoker Alcohol Screen Question Answer Notes Did you have a drink containing alcohol in the p ast year? No Points 0 Interpretation Negative Tobacco use other than smoking: Question Answer Notes Are you an other tobacco user? No Problems Problem Type SNOMED Code ICD Code Onset Dates Problem Status W/U Status Risk Notes Problem Plantar fasciitis of right foot ([id number] 01) Plantar fasciitis of right foot (M72.2) Active confirmed Problem Interstitial myositis (41578741) Interstitial myositis of right foot (M60.171) Active confirmed Problem Type II diabetes mellitus without complication (470148598) Type 2 diabetes mellitus without complications (E11.9) Active confirmed Vital Signs Height 5 ft 11 in in 09/23/2024 Weight 247 lbs 09/23/2024 BMI 34.45 kg/m2 09/23/2024 Encounters Encounter Location Date Provider Diagnosis [facility] [place] [address] [place] [address] 09/23/2024 Analia Black Pain in right foot M79.671 ; Plantar fasciitis of right foot M72.2 ; 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 ; Bursitis of right foot M77.51 ; Tinea pedis of both feet B35.3 and Type 2 diabetes mellitus without complications E11.9 Assessments Encounter Date Diagnosis (ICD Code) Assessment Notes Treatment Notes Treatment Clinical Notes Section Notes 09/23/2024 Pain in right foot (ICD-10 - M79.671) 09/23/2024 Plantar fasciitis of right foot (ICD-10 - M72.2) Patient Educated with: HEEL CORD STRETCHES.pdf (HEEL CORD STRETCHES.pdf) Patient Educated with: RICE THERAPY.pdf (RICE THERAPY.pdf) 09/23/2024 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.171) 09/23/2024 Bursitis of right foot (ICD-10 - M77.51) 09/23/2024 Tinea pedis of both feet (ICD-10 - B35.3) Patient Educated with: ATHELETE .pdf (ATHELETE .pdf) 09/23/2024 Type 2 diabetes mellitus without complications (ICD-10 - E11.9) Patient Educated with: DIABETIC FOOT CARE INSTRUCTIONS.p df (DIABETIC FOOT CARE INSTRUCTIONS.p df) Plan Of Treatment Medication Medication Name Sig Start Date Stop Date Notes Night Splint AFO - L1930 1 wear at rest for 30 days Ciclopirox Olamine 0.77 % 1 application Externally Twice a day to skin of feet including between the toes for 30 days Treatment Notes Assessment Notes Plantar fasciitis of right foot Patient Educated with: HEEL CORD STRETCHES.pdf (HEEL CORD STRETCHES.pdf) Patient Educated with: RICE THERAPY.pdf (RICE THERAPY.pdf) Tinea pedis of both feet Patient Educate d with: ATHELETE .pdf (ATHELETE .pdf) Type 2 diabetes mellitus wit hout complications Patient Educated with: DIABETIC FOOT CARE INSTRUCTIONS.pdf (DIABETIC FOOT CARE INSTRUCTIONS.pdf) Next Appt Details Follow Up: 6 Weeks, Reason: Provider Name:Analia Munoz , 02/07/2025 02:45:00 PM, [address] [place] [address], [phone], Progress Notes * Brayden KELLOGG SDOB:[birth year] (69 yo M)Acc No.[id number]:09/23/2024 Progress Notes Patient:?Brayden Kellogg S Provider:?Analia Munoz DPM :1955???Age:69 Y???Sex:Male Hardik e:09/23/2024 Address:[address] [place], [place] [id number] Pcp:Lacy Steen Subjective: * Chief Complaints: * ???Heel painAt Risk Footcare Skin Problem * HPI: ???Heel pain:?Nature:?sharp pain.?Location:?Proximal plantar aspect of Heel, RIGHT.?Duration:?several months.?Course:?worse.?Aggravated:?standing, walking, walking first thing in the morning/after rest.?Treatments:?rest/alter normal daily activity , pre-fabricated orthoses , stretching , medication (tylenol ).?At Risk footcare:?Pt States Last PCP Visit:?Date?09/15/2024 ???Skin problems:?Nature:?scaling , redness.?Location:?B/L .?Duration:?several days.?Course:?worse.? * ROS:?General/Constitutional:?Nausea?denies.?Vomiting?denies.?Hunger Thirst?denies.?Loss appetite?denies.?Chills?denies.?Fatigue?denies.?Fever?denies.?Night Sweats?denies.?Unexplained weight loss?denies.?Unexplained weight gain?denies.?HEENTM:?Dentures?denies.?Dizziness?denies.?Glasses/contacts?admits.?Retinopathy?de nies.?Blurred/double vision?denies.?TMJ?denies.?Discharge/drainage?denies.?Implants?denies.?Sore throat?denies.?Dental implants?denies.?Hard of hearing ?denies.?Difficulty chewing/swallowing/speaking?denies.?Nose bleeds?denies.?Sore mouth?denies.?Respiratory:?On Oxygen?denies.?Pneumonia/pleurisy?denies.?Bronchitis?denies.?Emphysema?denies.?C oughing?denies.?Cough blood?denies.?Shortness of breath?denies.?Wheezing?denies.?Cardiovascular:?Pacemaker?denies.?MVP?denies.?WPW?denies.?CHF?denies.?Heart attack?denies.?Septal defect?denies.?Rapid beat?denies.?Chest pain ?denies.?Atrial Fib.?denies.?Murmur/Palpitations?denies.?Gastrointestinal:?Hemorrhoids?denies.?Stomach/Abdominal pain?denies.?Dark blood stool?denies.?Irritable bowel ?denies.?Constipation?denies.?Diarrhea?denies.?Hematology:?Swelling?denies.?Clots?denies.?Varicose Veins?denies.?Bruising?denies.?Bleeding problem?denies.?Genitourinary:?Blood urine?denies.?Frequent/Painfu/urination/bladder control?denies.?Kidney stones?denies.?Infection (UTI)?denies.?Nephropathy?denies.?sex trans dis (STD)?denies.?Prostate?admits.?Musculoskeletal:?Hammertoes?denies.?Bunions?denies.?Back Pain?admits.?Muscle Cramps/ Resting?admits.?Muscle cramps / walking?denies.?Generalized aches and pains?denies.?Weakness?denies.?Integ.:?Murray?denies.?Scars?denies.?Corns/calluses?denies.?Ingrown nails?admits.?Painful nails?denies.?Open Sores?denies.?Rashes?denies.?Neurologic:?Difficulty sleeping?denies.?Brain disorder?denies.?Numbness?denies.?Balance trouble?denies.?Confusion?denies.?Fainting/blackouts?denies.?Tingling?denies.?Tr emors?denies.? * Medical History:? * Surgical History:?right knee replacement 08/1991left knee replacement 08/2022 * Hospitalization/Major Diagno stic Procedure:?Denies Past Hospitalization * Family History:?Mother: dece ased, hypertension, arthritis.?Father: , hypertension, diabetes, heart attack.?Siblings: stroke, heart attack, high blood pressure.? * Social History:?Tobacco Use:?Tobacco Use/Smoking?Are you a:?former smoker ?Additional Findings: Tobacco Non-User?Current non-smoker ?Tobacco use other than smoking?Are you an other tobacco user??No ???Drugs/Alcohol:?Drugs?Have you used drugs other than those for medical reasons in the past 12 months??No ?Alcohol Screen?Did you have a drink containing alcohol in the past year??No ?Points?0 ?Interpretation?Negative ???Miscellaneous:?Caffeine: yes, more than 4 cups per day. ?no Children. ?no Exercise. ?Marital status: . * Medications:?TakingAspirin 8 1 MG Tablet Chewable 1 tablet Orally Once a dayAtorvastatin Calcium 20 MG Tablet 1 tablet Orally Once a dayLisinopril-hydroCHLOROthiazide 20-25 MG Tablet 1 tablet Orally Once a daymetFORMIN HCl 850 MG Tablet as directed Orally Twice a dayTamsulosin HCl 0.4 MG Capsule 1 capsule Orally Once a dayamLODIPine Besylate 5 MG Tablet 1 tablet Orally Once a dayFinasteride 5 MG Tablet 1 tablet Orally Once a dayTaking Aspirin 81 MG Tablet Chewable 1 tablet Orally Once a dayTaking Atorvastatin Calcium 20 MG Tablet 1 tablet Orally Once a dayTaking Lisinopril-hydroCHLOROthiazide 20-25 MG Tablet 1 tablet Orally Once a dayTaking metFORMIN HCl 850 MG Tablet as directed Orally Twice a dayTaking Tamsulosin HCl 0.4 MG Capsule 1 capsule Orally Once a dayTaking amLODIPine Besylate 5 MG Tablet 1 tablet Orally Once a dayTaking Finasteride 5 MG Tablet 1 tablet Orally Once a dayUnknownFurosemide 20 MG Tablet 1 tablet Orally Once a daySimvastatin 80 MG Tablet 1 tablet every evening Orally Once a dayUnknown Furosemide 20 MG Tablet 1 tablet Orally Once a dayUnknown Simvastatin 80 MG Tablet 1 tablet every evening Orally Once a day * Allergies:?N.K.D.A.yes[Aller gies Verified] Objective: * Vitals:?Ht: 5 ft 11 in, Wt:2 47, BMI:34.45, Shoe size: 12, BS: 119, Ht-cm: 180.34 cm, Wt-k.04 kg. * ???Past Orders: ???Lab:HEMOGLOBIN A1C (GLYCO HEMOGLOBIN) (Order Date - 09/15/2024) (Collection Date - 09/15/2024) ? Value Reference Range ?TOTAL HEMOGLOBIN (HGBA1C) 5.5 * Examination: ???Ophthalmology Referral: ?DIABETES EYE EXAM?General Examination: ?GENERAL APPEARANCE:?Reveals a pleasant, alert, well nourished, well- developed, well hydrated individual, who demonstrates proper attention to hygiene/body habitus, and is in no acute distress, Pt serves as own historian for office visit today.?ORIENTED:?person, place, and time.?FOOT EXAM:?Footwear Evaluation?Heel Pain: ?INSPECTION:? Pain on Palpation to Plantar Fascia med. and central bands, intrinsic musc., infra-calcaneal bursa, and med calc tubercle , RIGHT foot, No pain: posterior/superior heel, achilles bursa/tendon, sinus tarsi, peroneals, or with lateral heel compression; no limited STJ ROM, calor, or ecchymosis, RIGHT foot.?Orthopedic: ?MUSCLE STRENGTH:?5/5 all groups in a symmetrical fashion, B/L.?GAIT ABNORMALITY:?antalgic.?FOOT MORPHOLOGY:? Pes Planus structure, Decreased Ankle joint dorsiflexion ROM, knee extended.?DIGITAL DEFORMITIES:?Digital contracture, PIPJ, 2-5 B/L, incompl-reducible with WB, or to push-up test, no over, nor underlapping.?FOOTWEAR:?, good condition, exhibit proper fit and accommodation for pedal deformities. OT were inspected and noted to be worn, but in good condition giving proper support at the present time.?Neurological: ?SENSORY:?Neurological exam reveals intact sensorium, pain sensation normal, vibration sensation intact, pinprick sensation is normal in the lower extremities, Pt denies, anesthesia, burning, paresthesia, tingling, B/L.?TINEL'S COMPRESSION:?Negative tarsal tunnel, amy pedis, and medial calcaneal nerves.?Dermatologic: ?SKIN FINDINGS:? Skin shows sign(s) of, erythema, scaling, in a moccasin fashion, no fissure(s) present, B/L.?X-Rays - IMAGING REPORT: ?Clinical Indication(s):? Evaluate for Fracture, Evaluate Biomechanical Deformity.?Views:? 3 views of Foot, LAT, LO, MO, RIGHT.?Findings:? normal bone and soft tissue density consistent for patients age and sex, navicular/cuneiform plantar subluxation with anterior cyma line, positive infra-calcaneal exostosis.?Foot structure:?reveals excess pronation with , anterior break in cyme line.?Digits:?show asymmetrical joint space narrowing at the PIPJ consistent with clinical finding of hammertoe deformity, show enlarged/hypertrophied phalangeal head(s) consistent for clinical finding of hammertoe deformity.?Fracture:?Negative fractures identified.?Nails: ?NAILS are:?Elongated, overgrown, dystrophic, lytic, greater than 3mm thick, discolored and friable with crumbly malodorous subungual debris 1-5 b/l.? * Physical Examination:?L1930 Nightsplint AFO:?Application of static AFO, including soft interface material, adjustable for fit/ positioning/ pressure reduction, may be used for minimal ambulation, prefabricated, including fitting and adjustment:?Large , Right.? Assessment: * Assessment: 1.?Pain in right foot - M79. 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 Plan: * Treatment: 2.?Pain in right foot?Imaging: X ray : Foot, right 3V?See Examination above 3.?Tinea pedis of both feet? Start Ciclopirox Olamine Cream, 0.77 %, 1 application, Externally, Twice a day to skin of feet including between the toes, 30 days, 60, Refills 2.?? Notes: Patient Educated with: ATHELETE .pdf (ATHELETE .pdf)?? 4.?Type 2 diabetes mellitus without complications? Notes: Patient Educated with: DIABETIC FOOT CARE INSTRUCTIONS.pdf (DIABETIC FOOT CARE INSTRUCTIONS.pdf)?? * Procedure Codes:?45510 X-RAY EXAM OF RIGHT FOOT 3V, Modifiers: 26 , [id number] AFO PLASTIC/OTH MATERIAL PREFAB * Preventive Medicine:? ??Counseling:?Discussion:?-04: Office or other outpatient visit for the evaluation and management of a new patient, which required a medically appropriate history and/or examination and MODERATE level of DECISION MAKING for: 1 OR MORE CHRONIC PROBLEM(S) THATS WORSENING, 2 STABLE CHRONIC PROBLEMS, A NEWLY DIAGNOSED PROBLEM WITH UNCERTAIN PROGNOSIS, AN ACUTE COMPLICATED INJURY WITH MULTIPLE TREATMENT OPTIONS, OR AN ACUTE PROBLEM WITH ACCOMPANYING SYSTEMIC SYMPTOMS, THAT POSE(S) A MODERATE RISK OF MORBIDITY. THIS CONDITION MAY ALSO INCLUDE RX DRUG MANAGEMENT, OR A DECISON FOR MINOR SURGERY. The visit on the day of the encounter encompassed interpreting the data and educating the patient as to the nature of their condition, treatment options available according to their individual PMH, meds, allergies, and overall health/living conditions, as well as any potential risks or complications that may occur from a failure to adhere to, and participate in, the recommended course of therapy. The discussion included a complete verbal, and/or written explanation of the examination results, any x-rays taken, the proposed diagnosis, and outline of the treatment plan. A schedule for future care needs was also explained. The patient verbalized an understanding of the instructions at this time and agreed to be an active participant in their treatment. If the patient should think of any questions or concerns after the visit, I have encouraged the patient to call the office.?Heel pain:?FASCIITIS: I explained to the patient the possible etiologies of Plantar Fasciitis including foot type/shoegear/activity level/exercise routine and the risks/benefits of all the different treatment options for heel pain including: No treatment at all, Rest, Ice, NSAIDs(only if well tolerated after meals), New/supportive Shoegear, Strappings and Tapings, Stretching exercises, Deep Tissue Massage, Heel cups/cushions, Arch support/shoe inserts, Custom orthoses, Topical analgesics including Aspercream/Voltaren gel, Night splint AFO for am stiffness, Cortisone injection therapy, Cast boot with crutches/cane/or walker for assisted ambulation, Physical Therapy, EPAT/ESWT, Interfil injection therapy, as well as surgical Sturdivant/Endoscopic Fasciitomy surgical procedures if needed. Recommendations were made to limit barefoot walking, eliminate wearing nonsupportive shoegear (i.e. flip-flops or sandals, or a shoe with an easily bendable, foldable, or twistable sole) and wear shoegear with a good solid sole, a supportive arch, and plenty of room for an insert/orthotic if necessary. If wearing sandals was required by the patient, we recommended orthopedic sandals such as Orthoheel or Birkenstock even while in the home. If the patient wore heels in the past, we recommended they continue, but eliminate the use of flats. The advantages and disadvantages of each option were discussed and the patients questions re: types of shoegear, custom vs prefabricated inserts, activity level, PO vs Topical medications (and their respective potential complications/drug interactions/side effects), and consistency in home treatment regimens for optimal success were answered to their satisfaction. Literature detailing plantar fasciitis and the various treatment options were dispensed and reviewed, Stretching exercises for the patients injury/diagnosis were discussed and demonstrated, Handouts were also given, Recommended a Night Splint to be worn daily for a minimum of 2 hours, The Pt. was counseled on the x-rays, treatment options, and the importance of following all homecare instructions.?Podiatric Counseling:?The Pt. was counseled in great detail on their muscoloskeletal foot and toe deformities which coincide with the dermatological presentations visualized on exam. We discussed how their deformities put the integrity of their feet at risk for potential pedal complications which is what makes accomidative the diabetic shoes and cutomizable inserts medically necessary. We discussed the different shoe and insert treatment types and options, as well as the important advantages for adhering to regularly wearing these accomidative devices daily. The patient was made aware of the fact that a failure in accepting these recommedations may be deleterious, unable to prevent, and disadvantagely result in, many pedal complications such as skin irritation, skin ulceration, infection, and even loss of toe/foot/leg/or even their life. Time was also spent with the patient dispensing and discussing proper diabetic footcare techniques including daily skin moisturization, daily foot inspection for any interruption in skin integrity, open lesions, or sign of infection such as redness/malodor/drainage/swelling as well as daily shoe inspection for the presence of internal foreign bodies and shoe as well as insert wear. Patient questions re: shoes, inserts, and self foot inspections were answered to their satisfaction as the patient verbally confirmed a full understanding of the above information..?Tinea Pedis:?The patient was counseled on the diagnosis, potential etiologies, and treatment options for their skin condition. We discussed the risks and benefits of each option from performing no treatment, to utilizing OTC topical skin creams, prescription topical creams, customized compounded topical medications, and, if necessary, to utilize oral antifungal therapy. We discussed the advantages and disadvantages of each possible treatment and importance for adherence to all the recommended therapies for optimum success and avoid potential complications such as open sore/infection/possible hospitalization. We discussed the potential effectiveness of each topical preparation as well as each ones possible side effects and/or patient medication interactions if oral therapy is selected. Patient questions re: the advantages and disadvantages of each treatment choice, medication use/dosage, successful outcomes, and application consistency were reviewed and the patient verbalized that all answers were clearly understood. The patient was told they can help alleviate symptoms by utilizing moisture absorbant innersoles with activated charcoal and baking soda, applying antifungal sprays daily, aerating toe web spaces at night by putting cotton or lambs wool between the toes, alternating shoe gear daily if possible so they can dry out, changing socks at least once during the day, wearing well-ventilated shoes or sandals. The patient has decided to apply antifungal skin creams to their feet as directed. Rx was sent to their pharmacy at the time of visit.? * Follow Up:?6 Weeks * Images: * Sign off status: Completed true * Provider:?Analia uMnoz DPM Date:?2023 Generated for Nuzhat handy/Ricki/Caridad on:?11/29/2024 08:46 AM EST History and Physical Notes * HPI (History of Present Illness) Category Sub-Category Detail Notes Category Not es Heel pain Duration: several months Nature: sharp pain Location: Proximal plantar asp ect of Heel, RIGHT Aggravated: standing, walking, w alking first thing in the morning/after rest Course: worse Treatments: rest/alter normal da gabby activity , pre-fabricated orthoses , stretching , medication (tylenol ) Skin problems Nature: scaling , redness Location: B/L Duration: several days Course: worse At Risk footcare Pt States Last PCP Visit: Date: 4 Physical Examination Category Sub-Category Detail Notes Section Note s L1930 Nightsplint AFO Application of sta tic AFO, including soft interface material, adjustable for fit/ positioning/ pressure reduction, may be used for minimal ambulation, prefabricated, including fitting and adjustment: Large , Right Examination Category Sub-Category Detail Notes Category Not es Neurological SENSORY: Neurological exa m reveals intact sensorium, pain sensation normal, vibration sensation intact, pinprick sensation is normal in the lower extremities, Pt denies, anesthesia, burning, paresthesia, tingling, B/L TINEL'S COMPRESSION: Negative tarsal alejo charles, amy pedis, and medial calcaneal nerves Dermatologic SKIN FINDINGS: Skin shows sign( s) of, erythema, scaling, in a moccasin fashion, no fissure(s) present, B/L Orthopedic GAIT ABNORMALITY: antalgic FOOT MORPHOLOGY: Pes Planus structure , Decreased Ankle joint dorsiflexion ROM, knee extended FOOTWEAR: , good condition, ex hibit proper fit and accommodation for pedal deformities. OT were inspected and noted to be worn, but in good condition giving proper support at the present time DIGITAL DEFORMITIES: Digital contracture , PIPJ, 2-5 B/L, incompl-reducible with WB, or to push-up test, no over, nor underlapping MUSCLE STRENGTH: 5/5 all groups in a symmetrical fashion, B/L General Examination GENERAL APPEARANCE: Reveals a pleasant, alert, well nourished, well-developed, well hydrated individual, who demonstrates proper attention to hygiene/body habitus, and is in no acute distress, Pt serves as own historian for office visit today FOOT EXAM: Lower Extremity Neurological Exa m performed:: Yes Visual exam of foot performed:: Yes Date: 09/23/2024 Sensory testing performed:: sensations n ormal Sensory and motor testing performed:: se nsations and strength normal Pedal pulse taking performed:: 2+ ORIENTED: person, place, and t tracy Footwear Evaluation Footwear Evaluation performe d:: Yes Ophthalmology Referral DIABETES EYE EXAM Procedure Perform ed:: Yes Findings of Diabetic Eye Exam:: no retin opathy Nails NAILS are: Elongated, overg rown, dystrophic, lytic, greater than 3mm thick, discolored and friable with crumbly malodorous subungual debris 1-5 b/l X-Rays - IMAGING REPORT Findings: normal b one and soft tissue density consistent for patients age and sex, navicular/cuneiform plantar subluxation with anterior cyma line, positive infra-calcaneal exostosis Fracture: Negative fractures i dentified Digits: show asymmetrical grabiel int space narrowing at the PIPJ consistent with clinical finding of hammertoe deformity, show enlarged/hypertrophied phalangeal head(s) consistent for clinical finding of hammertoe deformity Foot structure: reveals excess prona tion with , anterior break in cyme line Views: 3 views of Foot, LAT , LO, MO, RIGHT Clinical Indication(s): Evaluate for Fra cture, Evaluate Biomechanical Deformity Heel Pain INSPECTION: Pain on Palpatio n to Plantar Fascia med. and central bands, intrinsic musc., infra-calcaneal bursa, and med calc tubercle , RIGHT foot, No pain: posterior/superior heel, achilles bursa/tendon, sinus tarsi, peroneals, or with lateral heel compression; no limited STJ ROM, calor, or ecchymosis, RIGHT foot
--- OUTSIDE RECORDS SUMMARY | 2024-11-29 08:46 | XMS_ITS ---
Author Organization [facility] Address [address] [place] [address] Care Team Providers Care Marketing Research Analyst Name Role Phone Lacy Steen Primary Care Provider Unavailab jose MunozDailye Unavailable [phone] REASON FOR VISIT JACQUARD LOOM CARPET WEAVER PPWK Entered Encounters Encounter Location Date Provider Diagnosis [facility] [address] [place] [address] 07/09/2024 Analia Alexander Plan Of Treatment Next Appt Details Provider Name:Analia Munoz , 02/07/2025 02:45:00 PM, [address] [place] [address], [phone], Progress Notes * Brayden RICHARD SDOB:[birth year] (69 yo M)Acc No.[id number]:07/09/2024 Patient:?Brayden Richard :1955???Age:69 Y???Sex:Male Address:[address] [place] [address] [place] [address] * true * Date:? Generated for Printi ng/Ricki/eTransmitting on:?11/29/2024 08:46 AM EST
--- OUTSIDE RECORDS SUMMARY | 2024-11-29 08:46 | XMS_ITS | Patient Health Record ---
Author Organization [facility] Miguel parikh [place] Address [address] [place] [address] Care Team Providers Care Hose Maker Name Role Phone Lacy Steen Primary Care Provider Unavailab Analia Núñez Unavailable [phone] Allergies No Known Allergies Results Component Value Reference Range Notes X ray : Foot, right 3V Reviewed date:09/23/2024 12:31:17 PM Interpretation:See Examination above Performing Lab: Notes/Report: See Examination above HEMOGLOBIN A1C (GLYCOHEMOGLO BIN) Reviewed date:09/23/2024 08:44:27 AM Interpretation: Performing Lab: Notes/Report: TOTAL HEMOGLOBIN (HGBA1C) 5.5 Reason For Referral Diagnosis 1 Tinea unguium (B35.1 ) Diagnosis 2 Pain in Limb (729.5) Diagnosis 3 Diabetic - NIDDM (25 0.00) Diagnosis 4 Tinea pedis of both feet (B35.3) Diagnosis 5 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) Diagnosis 6 Pain in right foot ( M79.671) Diagnosis 7 Bursitis of right fo ot (M77.51) Diagnosis 8 Plantar fasciitis of right foot (M72.2) Referring Provider First Name Lacy Referring Provider Last Name Enio [facility] Richard Referred Provider Analia Munoz Referred Address [address] [facility],[place],[address], Referred Provider Specialty Podiatry Referral Priority Routine Medications Medication SIG (Take, Route, Frequency, Duration) Notes Start Date End Date Status Aspirin 81 MG 1 tablet Orally Once a day Active Simvastatin 80 MG 1 tablet every eveni ng Orally Once a day for 30 day(s) Unknown Atorvastatin Calcium 20 MG 1 tablet Oral ly Once a day Active amLODIPine Besylate 5 MG 1 tablet Orally Once a day Active Tamsulosin HCl 0.4 MG 1 capsule Orally O nce a day Active metFORMIN HCl 850 MG as directed Orally Twice a day for 30 days Active Lisinopril-hydroCHLOROthia zide 20-25 MG 1 tablet Orally Once a day for 30 day(s) Active Furosemide 20 MG 1 tablet Orally Once a day for 30 day(s) Unknown Ciclopirox Olamine 0.77 % 1 application Externally Twice a day to skin of feet including between the toes for 30 days Active Night Splint AFO - L1930 1 wear at rest for 30 days Active Finasteride 5 MG 1 tablet Orally Once a day Active Social History Tobacco Use: Social History Observation Description Date Details (start date - stop date) Former Smoker NA - NA Tobacco Use/Smoking Question Answer Notes Are you a: former smoker Additional Findings: Tobacco Non-User Current no n-smoker Tobacco use other than smoking: Question Answer Notes Are you an other tobacco user? No AUDIT-C (Standard) Question Answer Notes Did you have a drink contain ing alcohol in the past year? Yes How often did you have six o r more drinks on one occasion in the past year? Less than monthly (1 point) How many drinks did you have on a typical day when you were drinking in the past year? 1 or 2 drinks (0 point) How often did you have a dri nk containing alcohol in the past year? Monthly or less (1 point) Points 2 Interpretation Negative Problems Problem Type SNOMED Code ICD Code Onset Dates Problem Status W/U Status Risk Notes Problem Type II diabetes mellitus without complication (485021505) Type 2 diabetes mellitus without complications (E11.9) Active confirmed Problem Plantar fasciitis of right foot (073585240915521 01) Plantar fasciitis of right foot (M72.2) Active confirmed Problem Interstitial myositis (18325064) Interstitial myositis of right foot (M60.171) Active confirmed Problem 01071560 Hypertension, essential (I10) Active confirmed Vital Signs Heart Rate 62 /min 11/08/2024 Blood pressure diastolic 64 mm Hg 11/08/2024 Height 5ft 11in in 11/08/2024 Blood pressure systolic 128 mm Hg 11/08/2024 Weight 247 lbs 11/08/2024 BMI 34.45 kg/m2 11/08/2024 Encounters Encounter Location Date Provider Diagnosis [address] [address] 09/23/2024 Analia Black Pain in right foot M79.671 ; Plantar fasciitis of right foot M72.2 ; 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 ; Bursitis of right foot M77.51 ; Tinea pedis of both feet B35.3 and Type 2 diabetes mellitus without complications E11.[address] [address] 11/08/2024 Analia Black Pain in right foot M79.671 ; Plantar fasciitis of right foot M72.2 ; 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 ; Bursitis of right foot M77.51 ; Tinea pedis of both feet B35.3 and Type 2 diabetes mellitus without complications E11.[address] [address] 07/09/2024 Analia Black Assessments Encounter Date Diagnosis (ICD Code) Assessment Notes Treatment Notes Treatment Clinical Notes Section Notes 09/23/2024 Pain in right foot (ICD-10 - M79.671) 09/23/2024 Plantar fasciitis of right foot (ICD-10 - M72.2) Patient Educated with: HEEL CORD STRETCHES.pdf (HEEL CORD STRETCHES.pdf) Patient Educated with: RICE THERAPY.pdf (RICE THERAPY.pdf) 11/08/2024 Pain in right foot (ICD-10 - M79.671) 11/08/2024 Plantar fasciitis of right foot (ICD-10 - M72.2) 11/08/2024 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.171) 09/23/2024 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.171) 09/23/2024 Bursitis of right foot (ICD-10 - M77.51) 11/08/2024 Bursitis of right foot (ICD-10 - M77.51) 11/08/2024 Tinea pedis of both feet (ICD-10 - B35.3) 09/23/2024 Tinea pedis of both feet (ICD-10 - B35.3) Patient Educated with: ATHELETE .pdf (ATHELETE .pdf) 09/23/2024 Type 2 diabetes mellitus without complications (ICD-10 - E11.9) Patient Educated with: DIABETIC FOOT CARE INSTRUCTIONS.p df (DIABETIC FOOT CARE INSTRUCTIONS.p df) 11/08/2024 Type 2 diabetes mellitus without complications (ICD-10 - E11.9) Plan Of Treatment Pending Test Test Name Order Date [id number] NAIL, 6 OR MORE 11/11/2011 Next Appt Details Provider Name:Analia Kaye Alexander , 02/07/2025 02:45:00 PM, [address] [place] [address], [phone], Insurance Providers Payer Name Payer Address Payer Phone Subscriber Number Group Number Insured Name Patient Relationship to Insured Coverage Start Date Coverage End Date [address] [phone] [id number] Brayden Kellogg Self - patient is the insured Medical (General) History Medical History History ICD Code sciatica joint implants/screws hypertension Cholesterol broken bones back, hip, knee pain Arthritis Diabetic Measles Mumps Chicken pox Surgical History Surgery Date(Month/Year) right knee replacement 08/1991 left knee replacement 08/2022
[2024-11-29 10:28] LABS: Alanine Aminotransferase 32 U/L (0-40); Alkaline Phosphatase 58 U/L (39-117); Anion Gap 11 (12-20); Aspartate Amino Transferase 24 U/L (5-37); Bilirubin Total 0.4 mg/dL (0.0-1.0); Blood Urea Nitrogen 19 mg/dL (9-16); Carbon Dioxide 26 mmol/L (22-29); Chloride 108 mmol/L (96-108); Cholesterol 149 mg/dL (<200); Estimated Glomerular Filt Rate > 60; Glucose Random 104 mg/dL (60-115); HDL Cholesterol 50 mg/dL (>40); LDL Cholesterol Calculated 79 mg/dL (<100); Potassium 4.3 mmol/L (3.3-5.1); Sodium 141 mmol/L (135-145); Total Protein 6.5 g/dL (6.5-8.0); Triglycerides 103 mg/dL (<150)
[2024-11-29 10:29] LABS: Estimated Average Glucose 108 mg/dL; Hemoglobin A1C 114.4679 umol/L; Hemoglobin A1c % 5.4 % (<6.0); Total Hemoglobin (HGBA1C) 3245.9899 umol/L
[2024-11-29 10:34] LABS: Prostate Specific Antigen 1.44 ng/mL (<0.05-4.0)
[2024-11-29 10:45] LABS: Ferritin 45 ng/mL (20-250)
[2024-11-29 10:49] LABS: Folate 17.2 ng/mL (> or = 4.0); Vitamin B12 411 pg/mL (200-900)
== END 2024-11-29 08:43 | disposition home or self-care (01) ==
LOC: HO.HMGCLDS 08:42
PROVIDERS: PCP Internal Medicine; Referring Provider Nurse Practitioner Family; Visit Provider Internal Medicine
DX: R97.20 Elevated prostate specific antigen [PSA] (principal); D64.9 Anemia, unspecified; E11.22 Type 2 diabetes mellitus with diabetic chronic kidney disease; E78.00 Pure hypercholesterolemia, unspecified; I12.9 Hypertensive chronic kidney disease with stage 1 through stage 4 chronic kidney disease, or unspecified chronic kidney disease; Z12.5 Encounter for screening for malignant neoplasm of prostate
CPT/HCPCS: 36415; 80053; 80061; 82607; 82728; 82746; 83036; 84153

== ENCOUNTER 2024-12-02 08:43 | Outpatient (AMB) | payer MEDICARE, SELFPAY ==
--- NOTE | 2024-12-02 08:46 | A.OFFVIS_ITS ---
Intake Visit Reasons: 6m/PSA(set) Intake Note: Patient presents today for follow up visit for BPH, lab results, and weak urinary system PSA Lab: 1.53 Urology Medications: tamsulosin and finasteride Blood Thinner: aspirin PVR: 34ml's Pool Hand Required: No Accompanied by: Self / Same As Patient Allergies No Known Allergies Allergy (Verified 12/02/24 09:17) HPI Comments Details: Karan is a 69-year-old male patient of Dr. Steen. He has a past medical history of venous stasis dermatitis, hypercholesteremia, diabetes, osteoarthritis, and hypertension. He presents to the office today for follow-up of his elevated PSA and lower urinary tract symptoms. In discussion with the patient today reports to be doing feeling well. He reports compliance with finasteride and Flomax as prescribed. He currently denies any bothersome urinary issues or concerns. Previous workup has included a retroperitoneal ultrasound 01/24 noting blateral kidneys with no calculi, lesions, and or hydronephrosis. There is an anechoic cyst lower pole measuring approximately 3.4 cm. The bladder is well distended and normal. Bilateral ureteral jets are demonstrated. Pre void bladder volume is approximately 100 mL. Postvoid bladder volume is approximately 300 mL. Prostate volume measures approximately 42 mL. Recent PSA results reviewed with the patient today. As noted and trended below. PSAs: 01/24 4.2 05/24 1.6, 09/23 1.5, 11/23 1.4 In office urinalysis results reviewed with the patient today. PVR 36mls. He otherwise denies incontinence, hematuria, dysuria, foul smelling urine, changes to urinary stream, flank pain, fever, and or chills. He otherwise denies any bothersome issues or concerns. [facility] Medical History Venous stasis dermatitis High cholesterol Diabetes mellitus Osteoarthritis HTN (hypertension) Osteoarthritis of left knee Surgical History History of left knee replacement History of total right knee replacement History of tonsillectomy Social History Are you a primary physician assistant primary care to a significant other at home: No Do you presently have visiting nurse or other home services: No Patient Tobacco Use Status: Former Tobacco user Tobacco use type: Cigarette Second Hand Smoke Exposure: No service: No Current occupational status: employed 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 Review of Systems Eyes Reports no additional complaints ENT Reports no additional complaints Card Reports as per HPI Resp Reports no additional complaints GI Reports no additional complaints Reports as per HPI Musc Reports as per HPI Neuro Reports no additional complaints Psych Reports no additional complaints Endo Reports as per HPI Juliocesar/Lymph Reports no additional complaints Aller/Immun Reports no additional complaints Physical Exam Const General: cooperative, healthy appearing, comfortable, no acute distress, well developed, alert and awake Nutritional Appearance: overweight Orientation/consciousness: patient oriented x3 Limitations: no limitations HEENT Head: Yes normal to inspection, Yes normocephalic and Yes atraumatic Ears: hearing grossly normal bilaterally Eyes General: appearance normal, both eyes and all related structures Neck Neck: Yes normal visual inspection and Yes trachea midline Chest Chest palpation & inspection: normal inspection of the chest Resp Effort & Inspection: normal respiratory effort and able to speak in complete sentences Cardio Rate: regular rate GI Inspection: Yes normal to inspection General: Yes no CVA tenderness Back/Spine/Pelvis Back: no CVA tenderness Skin General skin exam: no rashes or lesions noted Neuro General: patient oriented x3 Extrem General: Yes normal to inspection Psych Appearance: grossly normal and well kempt Mental Status: mental status grossly normal Speech and movement: Normal speech and movement present and Clear speech present Affect: normal affect Attitude: cooperative Thought process: Normal thought process present Thought content: Normal thought content present Insight: Fair insight present (Psych) Judgement: Fair judgement present (Psych) Office Procedures Post Void Residual Post Residual Void Post Void Residual (PVR): 34 [id number]-[id number] Void Residual by ultrasound Results AMB Urinalysis, Automated UA Leukoctes 0 Lizz/uL Last Edit by Ning Fletcher on 12/02/24 09:23 UA Nitrite Last Edit by Ning Fletcher on 12/02/24 09:23 UA Urobilinogen 0.2 mg/dL Last Edit by Rnadyinocente Jackieteofilo on 12/02/24 09:23 UA Protein 0 mg/dL Last Edit by Ning Jackieteofilo on 12/02/24 09:23 UA pH 6.5 Last Edit by Randyinocente Jackieteofilo on 12/02/24 09:23 UA Blood 0 Toni/uL Last Edit by Ning Fletcher on 12/02/24 09:23 UA Specific [place] 1.015 Last Edit by Randyinocente Jackieteofilo on 12/02/24 09:23 UA Ketone Negative Last Edit by Ning Jackieteofilo on 12/02/24 09:23 UA Bilirubin 0 mg/dL Last Edit by Ning Jackieteofilo on 12/02/24 09:23 UA Glucose 0 mg/dL Last Edit by Ning Fletcher on 12/02/24 09:23 Results Reviewed Results Reviewed: Laboratory Last Values Urine pH (Auto) 6.5 12/02/24 09:20 Specific [place] (Auto) 1.015 12/02/24 09:20 Urine Protein (Auto) 0 mg/dL 12/02/24 09:20 Glucose (UA)(Auto) 0 mg/dL 12/02/24 09:20 Urine Ketones (Auto) Negative 12/02/24 09:20 Urine Blood (Auto) 0 Toni/uL 12/02/24 09:20 Urine Bilirubin (Auto) 0 mg/dL 12/02/24 09:20 Urine Urobilinogen (Auto) 0.2 mg/dL 12/02/24 09:20 Leukocyte Esterase (Auto) 0 Lizz/uL 12/02/24 09:20 Assessment & Plan Assessment & Plan (1) Elevated PSA: Code(s): R97.20 - Elevated prostate specific antigen [PSA] Category: Medical (2) Weak urinary stream: Code(s): R39.12 - Poor urinary stream Category: Medical (3) History of urinary hesitancy: Code(s): Z87.898 - Personal history of other specified conditions Category: Medical (4) BPH (benign prostatic hyperplasia): Code(s): N40.0 - Benign prostatic hyperplasia without lower urinary tract symptoms Category: Medical Plan In office urinalysis results with the patient today; as noted above. PVR 34 mL. Continue Flomax and finasteride as prescribed; we discussed taking finasteride every other day. Patient currently denies any bothersome urinary issues or concerns. He reports be happy with current voiding parameters. Recent PSA results reviewed with the patient today; as noted above. Will continue with surveillance monitoring. Follow-up in 6 months with PSA and PVR; or sooner with any issues, concerns, and or questions. Orders: Orders AMB Urinalysis Automated Today Z13.9 - Encounter for screening, unspecified AMB Post Void Residual by ultrasound Today R39.12 - Poor urinary stream Prostate Specific Antigen 6 Months R97.20 - Elevated prostate specific antigen [PSA] Patient Instructions: The patient had an opportunity to ask questions regarding the treatment plan. All questions were answered. Physical exam, labs, and imaging were discussed and reviewed in detail. As well as risks, benefits, and discussion of treatment choices. No major barriers to understanding were identified. The patient expressed understanding and agreement with the above treatment plan. The patient was made aware they should contact our office by phone for worsening of their current condition, the appearance of new symptoms, or with any questions or concerns. Compliance is encouraged with any medications and follow up testing that is ordered. It is a privilege to be allowed the opportunity to participate in? your urological care.? Again, if you have any questions or concerns If you have any questions or concerns please do not hesitate to contact me. The office is [phone]. This note is constructed using voice recognition software. While every effort has been made to ensure accuracy rubber goods tester water errors may have been included. Yours sincerely, TC Sharma Coding Level of Care Code Est Pt Level 3 (67339) Diagnoses Elevated PSA R97.20 Weak urinary stream R39.12 History of urinary hesitancy Z87.898 BPH (benign prostatic hyperplasia) N40.0 CPT Codes Post Residual Void - PVR CPT Code: 29138-Edzj Void Residual by ultrasound ([id number])
--- OUTSIDE RECORDS SUMMARY | 2024-12-02 08:46 | XMS_ITS ---
Author Organization [facility] Address [address] [place] [address] Care Team Providers Care Binder Stripper Hand Name Role Phone Lacy Steen Primary Care Provider Unavailab Analia Núñez Unavailable [phone] Allergies No Known Allergies Results Component Value [...] Notes Problem Plantar fasciitis of right foot (555700364543656 01) Plantar fasciitis of right foot (M72.2) Active confirmed Problem Interstitial myositis (86746075) Interstitial myositis of right foot (M60.171) Active confirmed Problem Type II diabetes mellitus without complication (619565113) Type 2 diabetes mellitus without complications (E11.9) Active confirmed Vital Signs Height 5 ft 11 in in 09/23/2024 Weight 247 lbs 09/23/2024 BMI 34.45 kg/m2 09/23/2024 Encounters Encounter Location Date Provider Diagnosis [facility] [place] [address] [place] [address] 09/23/2024 Analia Black Pain in right foot [...] Provider Name:Analia Munoz , 02/07/2025 02:45:00 PM, [address] [place] [address], [phone], Progress Notes * Brayden KELLOGG SDOB:[birth year] (69 yo M)Acc No.[id number]:09/23/2024 Progress Notes Patient:?Brayden Kellogg S Provider:?Analia Munoz DPM :1955???Age:69 Y???Sex:Male Hardik e:09/23/2024 Address:[address] [place], [place] [id number] Pcp:Lacy Steen Subjective: * Chief Complaints: * [...] INSTRUCTIONS.pdf (DIABETIC FOOT CARE INSTRUCTIONS.pdf)?? * Procedure Codes:?60213 X-RAY EXAM OF RIGHT FOOT 3V, Modifiers: 26 , [id number] AFO PLASTIC/OTH MATERIAL PREFAB * Preventive Medicine:? [...] Interfil injection therapy, as well as surgical [place]/Endoscopic Fasciitomy surgical procedures if needed. Recommendations were [...] Sign off status: Completed true * Provider:?Analia Munoz DPM Date:?2023 Generated for Nuzhat handy/Ricki/Caridad on:?12/02/2024 08:45 AM EST History and Physical Notes * [...]
--- OUTSIDE RECORDS SUMMARY | 2024-12-02 08:46 | XMS_ITS ---
Author Organization [facility] Address [address] [place] [address] Care Team Providers Care Geotechnical Department Manager Name Role Phone Lacy Steen Primary Care Provider Unavailab jose MunozDailye Unavailable [phone] REASON FOR VISIT THEOLOGY PROFESSOR PPWK Entered Encounters Encounter Location Date Provider Diagnosis [facility] [address] [place] [address] 07/09/2024 Analia Alexander Plan Of Treatment Next Appt Details Provider Name:Analia Munoz , 02/07/2025 02:45:00 PM, [address] [place] [address], [phone], Progress Notes * Brayden RICHARD SDOB:[birth year] (69 yo M)Acc No.[id number]:07/09/2024 Patient:?Brayden Richard :1955???Age:69 Y???Sex:Male Address:[address] [place] [address] [place] [address] * true * Date:? Generated for Printi rozina/Ricki/eTransmitting on:?12/02/2024 08:46 AM EST
--- OUTSIDE RECORDS SUMMARY | 2024-12-02 08:46 | XMS_ITS | Patient Health Record ---
Author Organization [facility] Miguel parikh [place] Address [address] [place] [address] Care Team Providers Care Parks And Recreation Manager Name Role Phone Lacy Steen Primary Care Provider Unavailab Analia Núñez Unavailable [phone] Allergies No Known Allergies Results Component Value [...] Referring Provider Last Name Enio [facility] Richard Referred Provider Analia Munoz Referred Address [address] [facility],[place],[address], Referred Provider Specialty Podiatry Referral Priority Routine [...] Problem Type II diabetes mellitus without complication (579827948) Type 2 diabetes mellitus without complications (E11.9) Active confirmed Problem Plantar fasciitis of right foot (941677433099413 01) Plantar fasciitis of right foot (M72.2) Active confirmed Problem Interstitial myositis (78215670) Interstitial myositis of right foot (M60.171) Active confirmed Problem 61428776 Hypertension, essential (I10) Active confirmed Vital Signs Heart Rate 62 /min 11/08/2024 Blood pressure diastolic 64 mm Hg 11/08/2024 Height 5ft 11in in 11/08/2024 Blood pressure systolic 128 mm Hg 11/08/2024 Weight 247 lbs 11/08/2024 BMI 34.45 kg/m2 11/08/2024 Encounters Encounter Location Date Provider Diagnosis [address] [address] 09/23/2024 Analia Black Pain in right foot M79.671 ; Plantar fasciitis of right foot M72.2 ; 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 ; Bursitis of right foot M77.51 ; Tinea pedis of both feet B35.3 and Type 2 diabetes mellitus without complications E11.[address] [address] 11/08/2024 Analia Black Pain in right foot M79.671 ; Plantar fasciitis of right foot M72.2 ; 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 ; Bursitis of right foot M77.51 ; Tinea pedis of both feet B35.3 and Type 2 diabetes mellitus without complications E11.[address] [address] 07/09/2024 Analia Black Assessments Encounter Date Diagnosis [...] Treatment Pending Test Test Name Order Date [id number] NAIL, 6 OR MORE 11/11/2011 Next Appt Details Provider Name:Analia Kaye Alexander , 02/07/2025 02:45:00 PM, [address] [place] [address], [phone], Insurance Providers Payer Name Payer Address Payer Phone Subscriber Number Group Number Insured Name Patient Relationship to Insured Coverage Start Date Coverage End Date [address] [id number] Brayden Kellogg Self - patient is the insured Medical (General) History Medical History History ICD Code sciatica joint implants/screws hypertension Cholesterol broken bones back, hip, knee pain Arthritis Diabetic Measles Mumps Chicken pox Surgical History Surgery Date(Month/Year) right knee replacement 08/1991 left knee replacement 08/2022
== END 2024-12-02 09:24 | disposition home or self-care (01) ==
PROVIDERS: PCP Internal Medicine; Visit Provider Nurse Practitioner Family
DX: R97.20 Elevated prostate specific antigen [PSA] (principal); R39.12 Poor urinary stream; Z87.898 Personal history of other specified conditions; N40.0 Benign prostatic hyperplasia without lower urinary tract symptoms; Z13.9 Encounter for screening, unspecified
CPT/HCPCS: 99213

== ENCOUNTER → 2024-12-02 08:43 | Outpatient (BNVA) | payer MEDICARE, SELFPAY | PROVIDERS: PCP Internal Medicine; Visit Provider Nurse Practitioner Family | DX: N40.1 Benign prostatic hyperplasia with lower urinary tract symptoms (principal); R39.12 Poor urinary stream; R97.20 Elevated prostate specific antigen [PSA]; Z87.898 Personal history of other specified conditions | CPT/HCPCS: 51798; 81003; 99212 ==

== ENCOUNTER 2025-03-14 08:44 | Outpatient (REF) | payer MEDICARE, SELFPAY ==
--- OUTSIDE RECORDS SUMMARY | 2025-03-14 09:23 | XMS_ITS | Patient Health Record ---
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 Name Role Phone Lacy Steen Primary Care Provider Unavailab Analia Núñez Unavailable [phone] Allergies No Known Allergies Results Component Value Reference Range Notes X ray : Foot, right 3V Reviewed date:09/23/2024 12:31:17 PM Interpretation:See Examination above Performing Lab: Notes/Report: See Examination above HEMOGLOBIN A1C (GLYCOHEMOGLO BIN) Reviewed date:09/23/2024 08:44:27 AM Interpretation: Performing Lab: Notes/Report: TOTAL HEMOGLOBIN (HGBA1C) 5.5 HEMOGLOBIN A1C (GLYCOHEMOGLO BIN) Reviewed date:02/07/2025 02:53:16 PM Interpretation: Performing Lab: Notes/Report: HEMOGLOBIN A1C % (HH) 5.4 Reason For Referral Diagnosis 1 Tinea unguium [...] Referring Provider Last Name Enio [facility] Referred Provider Analia Munoz Referred Address [address] [facility],[place], [place],[address] Referred Provider Specialty Podiatry Referral Priority Routine Medications Medication SIG (Take, Route, Frequency, Duration) Notes Start Date End Date Status amLODIPine Besylate 5 MG 1 tablet Orally Once a day Active Tamsulosin HCl 0.4 MG 1 capsule Orally O nce a day Active Night Splint AFO - L1930 1 wear at rest for 30 days Active Finasteride 5 MG 1 tablet Orally Once a day Active Furosemide 20 MG 1 tablet Orally Once a day for 30 day(s) Unknown Ciclopirox Olamine 0.77 % 1 application Externally Twice a day to skin of feet including between the toes for 30 days Active Simvastatin 80 MG 1 tablet every eveni ng Orally Once a day for 30 day(s) Unknown Atorvastatin Calcium 20 MG 1 tablet Oral ly Once a day Active Aspirin 81 MG 1 tablet Orally Once a day Active metFORMIN HCl 850 MG as directed Orally Twice a day for 30 days Active Lisinopril-hydroCHLOROthia zide 20-25 MG 1 tablet Orally Once a day for 30 day(s) Active Social History Tobacco Use: Social History Observation Description Date Details (start date - stop date) Never Smoker NA - NA Tobacco use other than smoking: Question Answer Notes Are you an other tobacco user? No Tobacco Control (Standard) Question Answer Notes Tobacco use: Nonsmoker AUDIT-C (Standard) Question Answer Notes Did you [...] Problem Status W/U Status Risk Notes Problem Acquired hammer toe of right foot (338722307745069 5) Other hammer toe(s) (acquired), right foot (M20.41) Active confirmed Problem Acquired hammer toe of left foot (454972051585871 3) Other hammer toe(s) (acquired), left foot (M20.42) Active confirmed Problem Plantar wart (36620880) Plantar wart (B07.0) Active confirmed Problem Type II diabetes mellitus without complication (030597070) Type 2 diabetes mellitus without complications (E11.9) Active confirmed Problem Plantar fasciitis of right foot (024351812805640 01) Plantar fasciitis of right foot (M72.2) Active confirmed Problem Interstitial myositis (35357430) Interstitial myositis of right foot (M60.171) Active confirmed Problem 62607704 Hypertension, essential (I10) Active confirmed Vital Signs Heart Rate 62 /min 11/08/2024 Blood pressure diastolic 80 mm Hg 02/07/2025 Height 0rh95jk in 02/07/2025 Blood pressure systolic 120 mm Hg 02/07/2025 Weight 247 lbs 02/07/2025 BMI 34.45 kg/m2 02/07/2025 Procedures Procedure Date Ordered Date Performed Result Body Sit e 12729-TPEWYZD NAIL, 6 OR MORE 02/07/2025 N/A 92550-Vwee Destruction, 1-14 02/07/2025 N/A Encounters Encounter Location Date Provider Diagnosis [address] [address] 09/23/2024 Analia Black Pain in right foot M79.671 ; Plantar fasciitis of right foot M72.2 ; 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 ; Bursitis of right foot M77.51 ; Tinea pedis of both feet B35.3 and Type 2 diabetes mellitus without complications E11.[address] [address] 11/08/2024 Analia Black Pain in right foot M79.671 ; Plantar fasciitis of right foot M72.2 ; 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 ; Bursitis of right foot M77.51 ; Tinea pedis of both feet B35.3 and Type 2 diabetes mellitus without complications E11.[address] [address] 02/07/2025 Analia Black Type 2 diabetes mellitus without complications E11.9 ; Plantar wart B07.0 ; Right foot pain M79.671 ; Other hammer toe(s) (acquired), right foot M20.41 ; Other hammer toe(s) (acquired), left foot M20.42 ; Onychomycosis B35.1 ; Pain in right toe(s) M79.674 and Pain in left toe(s) M79.675 [facility] [place] [address] [place] [address] 07/09/2024 Analia Munoz [facility] [address] [address] 02/07/2025 Analia Munoz Assessments Encounter Date Diagnosis (ICD Code) Assessment [...] fasciitis of right foot (ICD-10 - M72.2) 02/07/2025 Plantar wart (ICD-10 - B07.0) 02/07/2025 Type 2 diabetes mellitus without complications (ICD-10 - E11.9) Patient Educated with: DIABETIC FOOT CARE INSTRUCTIONS.p df (DIABETIC FOOT CARE INSTRUCTIONS.p df) 02/07/2025 Right foot pain (ICD-10 - M79.671) 11/08/2024 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.171) 09/23/2024 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.171) 09/23/2024 Bursitis of right foot (ICD-10 - M77.51) 02/07/2025 Other hammer toe(s) (acquired), right foot (ICD-10 - M20.41) 11/08/2024 Bursitis of right foot (ICD-10 - M77.51) 02/07/2025 Other hammer toe(s) (acquired), left foot (ICD-10 - M20.42) 11/08/2024 Tinea pedis of both feet (ICD-10 - B35.3) 09/23/2024 Tinea pedis of both feet (ICD-10 - B35.3) Patient Educated with: ATHELETE .pdf (ATHELETE .pdf) 09/23/2024 Type 2 diabetes mellitus without complications (ICD-10 - E11.9) Patient Educated with: DIABETIC FOOT CARE INSTRUCTIONS.p df (DIABETIC FOOT CARE INSTRUCTIONS.p df) 11/08/2024 Type 2 diabetes mellitus without complications (ICD-10 - E11.9) 02/07/2025 Onychomycosis (ICD-10 - B35.1) 02/07/2025 Pain in right toe(s) (ICD-10 - M79.674) 02/07/2025 Pain in left toe(s) (ICD-10 - M79.675) 02/07/2025 Other Plan Of Treatment Pending Test Test Name Order Date [id number]-ESVIYHM NAIL, 6 OR MORE 11/11/2011 69907-KFUSRCG NAIL, 6 OR MORE 02/07/2025 88179-Hrhi Destruction, 1-14 02/07/2025 Next Appt Details Provider Name:Analia Munoz , 05/19/2025 08:15:00 AM, [address] [place] [address], [phone], Insurance Providers Payer Name Payer Address Payer Phone Subscriber Number Group Number Insured Name Patient Relationship to Insured Coverage Start Date Coverage End Date [address] [id number] [phone] [id number] Brayden Kellogg Self - patient is the insured Medical (General) History Medical History History ICD Code sciatica joint implants/screws hypertension Cholesterol broken bones back, hip, knee pain Arthritis Diabetic Measles Mumps Chicken pox Surgical History Surgery Date(Month/Year) right knee replacement 08/1991 left knee replacement 08/2022
--- OUTSIDE RECORDS SUMMARY | 2025-03-14 09:24 | XMS_ITS ---
Author Organization [facility] Address [address] [place] [address] Care Team Providers Care Freight Representative Name Role Phone Lacy Steen Primary Care Provider Unavailab jose Analia Munoz Unavailable [phone] Allergies No Known Allergies REASON FOR VISIT At Risk Footcare, Skin Problem, Toe Irritation Medications Medication SIG (Take, Route, Frequency, Duration) [...] Once a day for 30 day(s) Unknown amLODIPine Besylate 5 MG 1 tablet Orally Once a day Active Tamsulosin HCl 0.4 MG 1 capsule Orally O nce a day Active Atorvastatin Calcium 20 MG 1 tablet Oral ly Once a day Active metFORMIN HCl 850 MG as directed Orally Twice a day for 30 days Active Lisinopril-hydroCHLOROthia zide 20-25 MG 1 tablet Orally Once a day for 30 day(s) Active Aspirin 81 MG 1 tablet Orally Once a day Active Social History Tobacco Use: Social History Observation Description Date Details (start date - stop date) Never Smoker NA - NA Tobacco use other than smoking: Question Answer Notes Are you an other tobacco user? No Tobacco Control (Standard) Question Answer Notes Tobacco use: Nonsmoker Problems Problem Type SNOMED Code ICD Code Onset Dates Problem Status W/U Status Risk Notes Problem Plantar wart (34697813) Plantar wart (B07.0) Active confirmed Problem Acquired hammer toe of right foot (4181653145319 105) Other hammer toe(s) (acquired), right foot (M20.41) Active confirmed Problem Acquired hammer toe of left foot (8577682902936 103) Other hammer toe(s) (acquired), left foot (M20.42) Active confirmed Vital Signs Height 2hy35od in 02/07/2025 Weight 247 lbs 02/07/2025 BMI 34.45 kg/m2 02/07/2025 Blood pressure systolic 120 mm Hg 02/08/20 25 Blood pressure diastolic 80 mm Hg 025 Procedures Procedure Date Ordered Date Performed Result Body Sit e [id number]-[id number] NAIL, 6 OR MORE 02/07/2025 N/A 91507-Kvhe Destruction, 1-14 02/07/2025 N/A Encounters Encounter Location Date Provider Diagnosis [facility] [place] [address] [place] [address] 02/07/2025 Analia Black Type 2 diabetes mellitus without complications E11.9 ; Plantar wart B07.0 ; Right foot pain M79.671 ; Other hammer toe(s) (acquired), right foot M20.41 ; Other hammer toe(s) (acquired), left foot M20.42 ; Onychomycosis B35.1 ; Pain in right toe(s) M79.674 and Pain in left toe(s) M79.675 Assessments Encounter Date Diagnosis (ICD Code) Assessment Notes Treatment Notes Treatment Clinical Notes Section Notes 02/07/2025 Type 2 diabetes mellitus without complications (ICD-10 - E11.9) Patient Educated with: DIABETIC FOOT CARE INSTRUCTIONS.p df (DIABETIC FOOT CARE INSTRUCTIONS.p df) 02/07/2025 Plantar wart (ICD-10 - B07.0) 02/07/2025 Right foot pain (ICD-10 - M79.671) 02/07/2025 Other hammer toe(s) (acquired), right foot (ICD-10 - M20.41) 02/07/2025 Other hammer toe(s) (acquired), left foot (ICD-10 - M20.42) 02/07/2025 Onychomycosis (ICD-10 - B35.1) 02/07/2025 Pain in right toe(s) (ICD-10 - M79.674) 02/07/2025 Pain in left toe(s) (ICD-10 - M79.675) 02/07/2025 Other Plan Of Treatment Treatment Notes Assessment Notes Type 2 diabetes mellitus wit hout complications Patient Educated with: DIABETIC FOOT CARE INSTRUCTIONS.pdf (DIABETIC FOOT CARE INSTRUCTIONS.pdf) Pending Test Test Name Order Date [id number] NAIL, 6 OR MORE 02/07/2025 10737-Qful Destruction, 1-14 02/07/2025 Next Appt Details Follow Up: 3 Months, Reason: Provider Name:Analia Munoz , 05/19/2025 08:15:00 AM, [address] [place] [address], [id number], Procedure Notes * Category Sub-Category Detail Notes Wart Treatment Procedure Verruca, as desc ribed in exam, were debrided to pin-point bleeding margins with sterile 15 surgical blade, silver nitrate chemocautery applied, recomm. immune-boosting meds such as zinc, recomm. follow up with topical chemosurgical agents, Pt defers any other forms of tx - 86146, DIABETES: Any more invasive procedure to wart deferred due to diabetes risk. pt informed any issues to call office Debride Nail 6-10 Nail debridement Due to the cl inical pathology outlined in the exam findings, performance of this nail treatment is medically necessary as its management by an unskilled/untrained nonprofessional would put this patients foot and overall health at risk. Therefore, debridement to affected nail(s), as described in exam (TA, T1, T2, T3, T4, T5, T6, T7, T8, T9, ), was performed exclusively by the physician of record to reduce/remove overall nail length, girth, thickness, subungual debris, and necrotic tissue, by manual and/or electrical means through the use of a nail nipper and/or dremel-type carbon plant grinder, to a more viable healthy nail plate or bed tissue 6-10 nails in total. Silver nitrate was used for any petechial bleeding as necessary. Definitive antifungal treatment options, both pharmaceutical and surgical, have been reviewed and discussed with the patient. The patient solely prefers the use of intermittent/as needed professional debridement services for their nail condition and understands the need for additional periodic treatments to maintain effectiveness in symptomatic relief - 78409 Progress Notes * Brayden KELLOGG SDOB:[birth year] (69 yo M)Acc No.[id number]:02/07/2025 Progress Note Patient:?Brayden KELLOGG Provider:?Analia Munoz DPM :1955???Age:69 Y???Sex:Male Hardik e:02/07/2025 Address:[address] [place] [address] [facility] Pcp:Lacy Steen Subjective: * Chief Complaints: * ???At Risk FootcareSkin Prob lemToe Irritation * HPI: ???At Risk footcare:?Pt States Last PCP Visit:?Date?09/15/2024 ???Skin problems:?Pt States PCP Visit: ?DATE?09/15/2024 ?Nature:? pebble or ball feeling .?Location:?Bottom, Midfoot, Right.?Duration:?several days.?Course:?worse.?Toe pain:?Location:?B/L feet.?Duration:?several years.?Course:?worse.?Aggravated by:?shoes, any pressure.?Treatments:?change in shoes.? * ROS:?General/Constitutional:?Nausea?denies.?Vomiting?denies.?Hunger Thirst?denies.?Loss appetite?denies.?Chills?denies.?Fatigue?denies.?Fever?denies.?Night Sweats?denies.?Unexplained weight loss?denies.?Unexplained [...] high blood pressure.? * Social History:?Tobacco Use:?Tobacco use other than smoking?Are you an other tobacco user??No ?Tobacco Control (Standard)?Tobacco use:?Nonsmoker ???Miscellaneous:?Caffeine: yes, more than 4 cups per day. ?Children: no. ?Exercise: no. ?Marital status: . ?Occupation: Retired. * Medications:?TakingAspirin 8 1 MG Tablet Chewable 1 tablet Orally Once a day Atorvastatin Calcium 20 MG Tablet 1 tablet Orally Once a day Lisinopril-hydroCHLOROthiazide 20-25 MG Tablet 1 tablet Orally Once a day metFORMIN HCl 850 MG Tablet as directed Orally Twice a day Tamsulosin HCl 0.4 MG Capsule 1 capsule Orally Once a day amLODIPine Besylate 5 MG Tablet 1 tablet Orally Once a day Finasteride 5 MG Tablet 1 tablet Orally Once a day Night Splint AFO - L1930 1 wear at rest Ciclopirox Olamine 0.77 % Cream 1 application Externally Twice a day to skin of feet including between the toes Taking Aspirin 81 MG Tablet Chewable 1 tablet Orally Once a day Taking Atorvastatin Calcium 20 MG Tablet 1 tablet Orally Once a day Taking Lisinopril-hydroCHLOROthiazide 20-25 MG Tablet 1 tablet Orally Once a day Taking metFORMIN HCl 850 MG Tablet as directed Orally Twice a day Taking Tamsulosin HCl 0.4 MG Capsule 1 capsule Orally Once a day Taking amLODIPine Besylate 5 MG Tablet 1 tablet Orally Once a day Taking Finasteride 5 MG Tablet 1 tablet Orally Once a day Taking Night Splint AFO - L1930 1 wear at rest Taking Ciclopirox Olamine 0.77 % Cream 1 application Externally Twice a day to skin of feet including between the toes UnknownFurosemide 20 MG Tablet 1 tablet Orally Once a day Simvastatin 80 MG Tablet 1 tablet every evening Orally Once a day Medication List reviewed and reconciled with the patientUnknown Furosemide 20 MG Tablet 1 tablet Orally Once a day Unknown Simvastatin 80 MG Tablet 1 tablet every evening Orally Once a day Medication List reviewed and reconciled with the patient * Allergies:?N.K.D.A.yes[Aller gies Verified] Objective: * Vitals:?Ht: 9sf85ey, Wt:247, BMI:34.45, Shoe size: 12, BP:120/80mm Hg, BS: not taken, Ht-cm: 180.34 cm, Wt-k.04 kg. * ???Past Orders: ???Lab:HEMOGLOBIN A1C (GLYCO HEMOGLOBIN) (Order Date - 12/01/2024) (Collection Date & Time - 12/01/2024 02:52 PM) ? Value Reference Range ?HEMOGLOBIN A1C % (HH) 5.4 * Examination: ???Ophthalmology Referral: ?DIABETES EYE EXAM?Procedure Performed:?Yes ?Findings of Diabetic Eye Exam:?no retinopathy?General Examination: ?GENERAL APPEARANCE:?Reveals a pleasant, alert, well nourished, well- developed, well hydrated individual, who demonstrates proper attention to hygiene/body habitus, and is in no acute distress, Pt serves as own historian for office visit today.?ORIENTED:?person, place, and time.?FOOT EXAM:?Lower Extremity Neurological Exam performed:?Yes ?Visual exam of foot performed:?Yes ?Date?02/07/2025 ?Sensory testing performed:?sensations normal ?Sensory and motor testing performed:?sensations and strength normal ?Pedal pulse taking performed:?2+ ?Footwear Evaluation?Footwear Evaluation performed:?Yes?Orthopedic: ?MUSCLE STRENGTH:?5/5 all groups in a symmetrical fashion, B/L.?GAIT ABNORMALITY:?antalgic.?FOOT MORPHOLOGY:? Pes Planus structure, Decreased Ankle joint dorsiflexion ROM, knee extended.?DIGITAL DEFORMITIES:??Digital contracture, PIPJ, 2-5 B/L, incompl- reducible to push-up test, no over, nor underlapping,?there is?evidence of shoe producing skin irritation.?FOOTWEAR:??shoe gear properties exacerbate patient's foot/toe deformity.?Neurological: ?SENSORY:?Neurological exam reveals intact sensorium, pain sensation normal, vibration sensation intact, pinprick sensation is normal in the lower extremities, Pt denies, anesthesia, burning, paresthesia, tingling, B/L.?Dermatologic: ?SKIN FINDINGS:?Skin exam reveals normal color, texture, elasticity, and turgor. There are no masses, nor excrescences. The interspaces are clear, B/L.?VERRUCA:?, Reveals a Single , multi-loculated , mosaic-patterned, round, raised, flat-topped, petechial bleeding papule(s), with cauliflower appearance and interruption of skin lines, pain to lateral compression, and size estimated at 4mm diameter, plantar Midfoot, RIGHT.?Nails: ?NAILS are:?Elongated, overgrown, dystrophic, lytic, greater than 3mm thick, discolored and friable with crumbly malodorous subungual debris , TA, T1, T2, T3, T4, T5, T6, T7, T8, T9.? Assessment: * Assessment: 1.?Plantar wart - B07.0 (Janis anabel)???2.?Type 2 diabetes mellitus without complications - E11.9???3.?Right foot pain - M79.671???4.?Other hammer toe(s) (acquired), right foot - M20.41???Specify :Chronic problem, Worse?5.?Other hammer toe(s) (acquired), left foot - M20.42???Specify :Chronic problem, Worse?6.?Onychomycosis - B35.1???7.?Pain in right toe(s) - M79.674???8.?Pain in left toe(s) - M79.675??? Plan: * Treatment: 2.?Type 2 diabetes mellitus without complications? Notes: Patient Educated with: DIABETIC FOOT CARE INSTRUCTIONS.pdf (DIABETIC FOOT CARE INSTRUCTIONS.pdf)?? 3.?Onychomycosis?Procedure: [id number]-[id number] NAIL, 6 OR MORE * Procedures:?Debride Nail 6-10:?Nail debridement?Due to the clinical pathology outlined in the exam findings, performance of this nail treatment is medically necessary as its management by an unskilled/untrained nonprofessional would put this patients foot and overall health at risk. Therefore, debridement to affected nail(s), as described in exam (TA, T1, T2, T3, T4, T5, T6, T7, T8, T9, ), was performed exclusively by the physician of record to reduce/remove overall nail length, girth, thickness, subungual debris, and necrotic tissue, by manual and/or electrical means through the use of a nail nipper and/or dremel-type carbon plant grinder, to a more viable healthy nail plate or bed tissue 6- 10 nails in total. Silver nitrate was used for any petechial bleeding as necessary. Definitive antifungal treatment options, both pharmaceutical and surgical, have been reviewed and discussed with the patient. The patient solely prefers the use of intermittent/as needed professional debridement services for their nail condition and understands the need for additional periodic treatments to maintain effectiveness in symptomatic relief - 96678.?Wart Treatment:?Procedure?Verruca, as described in exam, were debrided to pin-point bleeding margins with sterile 15 surgical blade, silver nitrate chemocautery applied, recomm. immune-boosting meds such as zinc, recomm. follow up with topical chemosurgical agents, Pt defers any other forms of tx - 05654, DIABETES: Any more invasive procedure to wart deferred due to diabetes risk. pt informed any issues to call office.? * Procedure Codes:?18672 Wart Destruction, 1-14, Modifiers: XS 37548 DEBRIDE NAIL, 6 OR MORE, Modifiers: XS * Preventive Medicine:? ??Counseling:?Discussion:?-13: Office or other outpatient visit for the evaluation and management of an established patient, which required a medically appropriate history and/or examination and LOW level of DECISION MAKING for: 1 STABLE ACUTE UNCOMPLICATED PROBLEM, 2 OR MORE MINOR PROBLEMS, OR 1 STABLE CHRONIC PROBLEM, THAT POSE(S) A LOW RISK FOR MORBIDITY/MORTALITY. The visit on the day of the [...] have encouraged the patient to call the office.?Digital Treatment:?HT- I explained to the patient the possible etiologies of Hammertoes, including genetics/foot type/shoegear/activity level/exercise routine and the risks/benefits of all the different treatment options for their pain including: No treatment at all, Rest, Ice, New/supportive/wider/deeper Shoe gear, Digital Padding/Strapping/Taping/Bracing/Gel protective sleeves, Foot/Ankle AFO Bracing, Stretching exercises, Deep Tissue Massage, Arch support/shoe inserts with splay metatarsal padding, and Custom orthoses. I insisted that any digital devices be removed daily and not worn overnight for safety. The patient is to carefully examine the toes daily for any skin irritation while using any splinting or padding device. The advantages and disadvantages of each option were discussed and the patients questions re: shoe gear, padding, custom vs prefabricated inserts, activity level, and consistency in home treatment regimens for optimal success were answered to their verbally confirmed satisfaction, Recomm, rest, ice, proper shoegear, padding, orthotics, anti-inflammatories or tylenol as tolerated, topical analgesics, cortisone injections.?Shoe Gear Counseling:?SHOE Rx - The patient was counseled in great detail on their muscoloskeletal foot and toe deformities which coincided with the dermatological presentations visualized on exam. We discussed how their deformities put the integrity of their feet at risk for potential pedal complications which makes the accomidative diabetic shoes and cutomizable inserts medically necessary. We discussed the different shoe and insert treatment types and options, as well as the important advantages for adhering to regularly wearing these accomidative devices daily. The patient was made aware of the fact that a failure to abide by these recommedations may be deleterious to their foot health as they are able to prevent many pedal complications such as skin irritation, skin ulceration, infection, and even loss of toe/foot/leg/or life. Time was also spent with the patient dispensing and discussing proper diabetic footcare techniques including daily skin moisturization, daily foot inspection for any interruption in skin integrity including open lesions, or sign of infection such as redness/malodor/drainage/swelling. Also discussed and recommended were procedures regarding daily shoe inspection for the presence of internal foreign bodies as well as any visualized irregular shoe or insert wear. Patient questions re: shoes, inserts, and self foot inspections were answered to their satisfaction as the patient verbally confirmed a full understanding of the above information., Patient DEFERS recommended Extra Depth Orthopedic pressure-accommodative shoes against medical advice.? ??Screening/Special Tests:?Fall Risk?Screening:?No falls in the past year ?FALLS: Screening for Future Fall Risk?Have you had any falls with injury in the past year??No * Follow Up:?3 Months * Images: * Sign off status: Completed true * Provider:?Analia Munoz DPM Date:?2024 Generated for Nuzhat handy/Ricki/Caridad on:?03/14/2025 09:23 AM EDT History and Physical Notes * HPI (History of Present Illness) Category Sub-Category Detail Notes Category Not es Toe pain Location: B/L feet Duration: several years Course: worse Aggravated by: shoes, any pressure Treatments: change in shoes Skin problems Nature: pebble or ball feeling Location: Bottom, Midfoot, Rig ht Duration: several days Course: worse Pt States PCP Visit: DATE: 09/15/2024 At Risk footcare Pt States Last PCP Visit: Date: Examination Category Sub-Category Detail Notes Category Not es Neurological SENSORY: Neurological exa m reveals intact sensorium, pain sensation normal, vibration sensation intact, pinprick sensation is normal in the lower extremities, Pt denies, anesthesia, burning, paresthesia, tingling, B/L Dermatologic SKIN FINDINGS: Skin exam reveal s normal color, texture, elasticity, and turgor. There are no masses, nor excrescences. The interspaces are clear, B/L VERRUCA: , Reveals a Single , multi-loculated , mosaic-patterned, round, raised, flat-topped, petechial bleeding papule(s), with cauliflower appearance and interruption of skin lines, pain to lateral compression, and size estimated at 4mm diameter, plantar Midfoot, RIGHT Orthopedic GAIT ABNORMALITY: antalgic FOOT MORPHOLOGY: Pes Planus structure , Decreased Ankle joint dorsiflexion ROM, knee extended FOOTWEAR EVALUATION: shoe gear propertie s exacerbate patient's foot/toe deformity DIGITAL DEFORMITIES: Digital contracture , PIPJ, 2-5 B/L, incompl-reducible to push-up test, no over, nor underlapping, there is evidence of shoe producing skin irritation MUSCLE STRENGTH: 5/5 all groups in a symmetrical fashion, B/L General Examination GENERAL APPEARANCE: Reveals a pleasant, alert, well nourished, well-developed, well hydrated individual, who demonstrates proper attention to hygiene/body habitus, and is in no acute distress, Pt serves as own historian for office visit today FOOT EXAM: Lower Extremity Neurological Exa m performed:: Yes Visual exam of foot performed:: Yes Date: 02/07/2025 Sensory testing performed:: sensations n ormal Sensory [...] and friable with crumbly malodorous subungual debris , TA, T1, T2, T3, T4, T5, T6, T7, T8, T9
--- OUTSIDE RECORDS SUMMARY | 2025-03-14 09:24 | XMS_ITS | Clinical Summary ---
Author Organization [facility] Address [address] [place] [address] Care Team Providers Care Mechanical Sound Technician Name Role Phone Lacy Steen MD Primary Care Provider [phone] Surgical History Surgery Date Site/Laterality Comments TOTAL KNEE ARTHROPLASTY 1993 Right PROCEDURE: HISTORICAL TOTAL KNEE REPLACE TONSILLECTOMY Bilateral PROCEDURE: HISTORICAL TONSILLECTOMY Medical History Medical History Date Comments Hypertension DX:Hypertension Hyperlipidemia DX:Hyperlipidemi a Diabetes mellitus, type 2 (C MS/HCC V24, CMS/HCC V28) DX:Diabetes mellitus, type 2 (HCC) Osteoarthritis of left knee DX:O steoarthritis of left knee Social History Tobacco Use Types Packs/Day Years Used Date Smoking Tobacco: Former Smokeless Tobacco: Never Alcohol Use Standard Drinks/Week Comments Never 0 (1 standard drink = 0.6 oz pur e alcohol) Sex and Gender Information Value Date Recorded Sex Assigned at Not on file Legal Sex Male 11:23 PM EST Gender Identity Not on file Sexual Orientation Not on file Obstetrics History Plan of Treatment Health Maintenance Due Date Last Done Comments DTaP,Tdap,and Td Vaccines (1 - Tdap) 02/13/1972 Pneumococcal Vaccine: 50+ Ye ars (1 of 1 - PCV) 2003 Zoster Vaccines (1 of 2) 2003 Abdominal Aortic Aneurysm (A AA) Screen 11/03/2022 Cholesterol Screening (Lipid Panel) 11/03/2022 Colorectal Cancer Screening: Colonoscopy 11/03/2022 Depression Screening 11/03/2022 Falls Risk Assessment 11/03/2022 Hepatitis C Screening 11/03/2022 Social Influencers of Health Screening 11/03/2022 COVID-19 Vaccine ( - 2023-2 5 season) 2024 Influenza Vaccine (Season Ended) 2025 RSV Immunization Adult Patie nts (1 - 1-dose 75+ series) 02/13/2028 HIB Vaccines Aged Out No longer eligi ble based on patient's age to complete this topic HPV Vaccines Aged Out No longer eligi ble based on patient's age to complete this topic Hepatitis A Vaccines Aged Out No long er eligible based on patient's age to complete this topic Hepatitis B Vaccines Aged Out No long er eligible based on patient's age to complete this topic IPV Vaccines Aged Out No longer eligi ble based on patient's age to complete this topic MMR Vaccines Aged Out No longer eligi ble based on patient's age to complete this topic Meningococcal ACWY Vaccine Aged Out N o longer eligible based on patient's age to complete this topic Meningococcal B Vaccine Aged Out No l onger eligible based on patient's age to complete this topic RSV Immunization Patients Un rickey 20 months Aged Out No longer eligible b ased on patient's age to complete this topic Varicella Vaccines Aged Out No longer eligible based on patient's age to complete this topic Care Teams Mechanical Sound Technician Relationship Specialty Start Date End Date Lacy Steen MD [facility] [address], [place] PCP - General Internal Medicine 05/30/21
[2025-03-14 11:03] LABS: Estimated Average Glucose 111 mg/dL; Hemoglobin A1C 121.1412 umol/L; Hemoglobin A1c % 5.5 % (<6.0)
[2025-03-14 11:29] LABS: Alanine Aminotransferase 29 U/L (0-40); Albumin Level 3.9 g/dL (3.5-5.0); Alkaline Phosphatase 60 U/L (39-117); Anion Gap 10 (12-20); Aspartate Amino Transferase 27 U/L (5-37); Bilirubin Total 0.3 mg/dL (0.0-1.0); Blood Urea Nitrogen 24 mg/dL (9-16); Calcium 9.1 mg/dL (8.4-10.2); Carbon Dioxide 26 mmol/L (22-29); Chloride 108 mmol/L (96-108); Estimated Glomerular Filt Rate 58; Glucose Random 86 mg/dL (60-115); Potassium 4.2 mmol/L (3.3-5.1); Sodium 140 mmol/L (135-145); Total Protein 6.4 g/dL (6.5-8.0)
== END 2025-03-14 08:45 | disposition home or self-care (01) ==
LOC: HO.HMGCLDS 08:44
PROVIDERS: PCP Internal Medicine; Visit Provider Internal Medicine
DX: E11.9 Type 2 diabetes mellitus without complications (principal); E78.00 Pure hypercholesterolemia, unspecified; I10 Essential (primary) hypertension; F17.211 Nicotine dependence, cigarettes, in remission
CPT/HCPCS: 36415; 80053; 83036

== ENCOUNTER 2025-04-07 08:58 | Outpatient (AMB) | payer MEDICARE, SELFPAY ==
--- NOTE | 2025-04-07 09:14 | A.OFFVIS_ITS ---
Intake Visit Reasons: OV-right knee pain follow up-6 Months Intake Note: Brayden is a 69 year old male who presents today for a follow up of his right knee. Hx of Right TKA [address] Rodriguez. Xrays showed loosening and ultimately would require arthroplasty but surgery was not warranted at this time Allergies No Known Allergies Allergy (Verified 12/02/24 09:17) HPI HPI OV-right knee pain follow up-6 Months: Details: 70-year-old gentleman who I performed a left total knee on about 3 years ago comes in today with continued right knee pain. He is able to walk and engage in his daily activities without severe pain but it does bother him in swell if occasionally. This surgery was done over 15 years ago at an outside facility. I have seen him in the past for this and we have discussed revision but the question has always been if he has uncomfortable enough as the prosthesis has never appeared markedly loose. [facility] Medical History Venous stasis dermatitis High cholesterol Diabetes mellitus Osteoarthritis HTN (hypertension) Osteoarthritis of left knee Surgical History (Updated 04/11/25 @ 17:59 by Arnel King MD) History of left knee replacement History of total right knee replacement History of tonsillectomy Social History Are you a primary direct support professional caregiver to a significant other at home: No Do you presently have visiting nurse or other home services: No Patient Tobacco Use Status: Former Tobacco user Tobacco use type: Cigarette Second Hand Smoke Exposure: No service: No Current occupational status: employed 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 Mild effusion. No gait antalgia. Assessment & Plan Assessment & Plan (1) History of total right knee replacement: Comment: 1993 Code(s): Z96.651 - Presence of right artificial knee joint Category: Surgical Plan: Right knee replacement proximally 30 years ago. Doing pretty well. His pain is minimal and there is no clinical evidence of loosening. Radiographs from 6 months ago showed some mild osteolysis but nothing acute. I discussed this with him and he continues to not want surgery at this time. I do think he should return to see me in a year as I think at some point he would benefit from a revision. Coding Level of Care Code Est Pt Level 3 (72180) Diagnoses History of total right knee replacement Z96.651
--- OUTSIDE RECORDS SUMMARY | 2025-04-07 09:23 | XMS_ITS | Clinical Summary ---
[facility] Organization [facility] Address [address] [place] [address] Care Team Providers Care Commercial Sales Director Name Role Phone Lacy Steen MD Primary Care Provider [phone] Surgical History Surgery Date Site/Laterality Comments TOTAL [...] age to complete this topic Care Teams Commercial Sales Director Relationship Specialty Start Date End Date Lacy Steen MD [facility] [address], [place] PCP - General Internal Medicine 05/30/21
== END 2025-04-07 09:43 | disposition home or self-care (01) ==
LOC: HO.HOS 08:59
PROVIDERS: PCP Internal Medicine; Visit Provider Orthopaedic Surgery
DX: Z47.89 Encounter for other orthopedic aftercare (principal); Z96.651 Presence of right artificial knee joint
CPT/HCPCS: 99213

== ENCOUNTER → 2025-04-07 08:58 | Outpatient (BNVA) | payer MEDICARE, SELFPAY | PROVIDERS: PCP Internal Medicine; Visit Provider Orthopaedic Surgery | DX: Z96.651 Presence of right artificial knee joint (principal) | CPT/HCPCS: 99212 ==

== ENCOUNTER 2025-07-15 06:52 | Outpatient (REF) | payer MEDICARE, SELFPAY ==
--- OUTSIDE RECORDS SUMMARY | 2025-07-15 06:55 | XMS_ITS | Patient Health Record ---
Author Organization [facility] Address [address] [place] [address] Care Team Providers Care Credit Risk Analytics Manager Name Role Phone Lacy Steen Primary Care Provider Abdullahi NúñezAnalia Unavailable [phone] Allergies No Known Allergies Results Component Value Reference Range Notes X ray : Foot, right 3V Reviewed date:09/23/2024 12:31:17 PM Interpretation:See Examination above Performing Lab: Notes/Report: See Examination above HEMOGLOBIN A1C (GLYCOHEMOGLO BIN) Reviewed date:09/23/2024 08:44:27 AM Interpretation: Performing Lab: Notes/Report: TOTAL HEMOGLOBIN (HGBA1C) 5.5 HEMOGLOBIN A1C (GLYCOHEMOGLO BIN) Reviewed date:02/07/2025 02:53:16 PM Interpretation: Performing Lab: Notes/Report: HEMOGLOBIN A1C % (HH) 5.4 HEMOGLOBIN A1C (GLYCOHEMOGLO BIN) Reviewed date:05/19/2025 08:15:35 AM Interpretation: Performing Lab: Notes/Report: HEMOGLOBIN A1C % (HH) 5.5 Reason For Referral Diagnosis 1 Tinea [...] Referring Provider Last Name Enio Referred Organization [facility] Richard Referred Provider Analia Munoz Referred Address [address] [facility] [place],[address],[place] Referred Provider Specialty Podiatry Referral Priority Routine Medications Medication SIG (Take, Route, Frequency, Duration) Notes Start Date End Date Status Atorvastatin Calcium 20 MG 1 tablet Oral ly Once a day Active Aspirin 81 MG 1 tablet Orally Once a day Active metFORMIN HCl 850 MG as directed Orally Twice a day; Duration: 30 days Active Lisinopril-hydroCHLOROthia zide 20-25 MG 1 tablet Orally Once a day; Duration: 30 day(s) Active amLODIPine Besylate 5 MG 1 tablet Orally Once a day Active Tamsulosin HCl 0.4 MG 1 capsule Orally O nce a day Active Finasteride 5 MG 1 tablet Orally Once a day Active Ciclopirox Olamine 0.77 % 1 application Externally Twice a day to skin of feet including between the toes; Duration: 30 days Active Night Splint AFO - L1930 1 wear at rest; Duration: 30 days Active Simvastatin 80 MG 1 tablet every eveni ng Orally Once a day; Duration: 30 day(s) Unknown Furosemide 20 MG 1 tablet Orally Once a day; Duration: 30 day(s) Unknown Immunizations Vaccine Route Administration Date Status Comme nts Influenza Unknown 08/01/2024 Administered Social History Tobacco Use: Social History Observation [...] W/U Status Risk Notes Problem Plantar wart (16979784) Plantar wart (B07.0) Active confirmed Problem Type II diabetes mellitus without complication (735696681) Type 2 diabetes mellitus without complications (E11.9) Active confirmed Vital Signs Heart Rate 62 /min 11/08/2024 Blood pressure diastolic 80 mm Hg 05/19/2025 Height 5gs77to in 05/19/2025 Blood pressure systolic 120 mm Hg 05/19/2025 Weight 260 lbs 05/19/2025 BMI 36.26 kg/m2 05/19/2025 Procedures Procedure Date Ordered Date Performed Result Body Sit e 77696-INXXCWX NAIL, 6 OR MORE 02/07/2025 N/A 21189-Mths Destruction, 1-14 02/07/2025 N/A 66160-EIJKQTY NAIL, 6 OR MORE 05/19/2025 N/A Encounters Encounter Location Date Provider Diagnosis [address] [address] 09/23/2024 Analia Black Pain in right foot M79.671 ; Plantar fasciitis of right foot M72.2 ; 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 ; Bursitis of right foot M77.51 ; Tinea pedis of both feet B35.3 and Type 2 diabetes mellitus without complications E11.[address] [address] 11/08/2024 Analia Black Pain in right foot M79.671 ; Plantar fasciitis of right foot M72.2 ; 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 ; Bursitis of right foot M77.51 ; Tinea pedis of both feet B35.3 and Type 2 diabetes mellitus without complications E11.[address] [address] 02/07/2025 Analia Black Type 2 diabetes mellitus without complications E11.9 ; Plantar wart B07.0 ; Right foot pain M79.671 ; Other hammer toe(s) (acquired), right foot M20.41 ; Other hammer toe(s) (acquired), left foot M20.42 ; Onychomycosis B35.1 ; Pain in right toe(s) M79.674 and Pain in left toe(s) M79.[address] [address] 05/19/2025 Analia Black Plantar wart B07.0 ; Onychomycosis B35.1 ; Type 2 diabetes mellitus without complications E11.9 ; Pain in right toe(s) M79.674 and Pain in left toe(s) M79.675 [facility] [address] [address] 02/07/2025 Analia Munoz Assessments Encounter Date Diagnosis [...] INSTRUCTIONS.p df (DIABETIC FOOT CARE INSTRUCTIONS.p df) 05/19/2025 Plantar wart (ICD-10 - B07.0) 05/19/2025 Onychomycosis (ICD-10 - B35.1) 05/19/2025 Type 2 diabetes mellitus without complications (ICD-10 - E11.9) 02/07/2025 Right foot pain (ICD-10 - M79.671) 11/08/2024 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.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) 09/23/2024 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.171) 09/23/2024 Bursitis of right foot (ICD-10 - M77.51) 02/07/2025 Other hammer toe(s) (acquired), right foot (ICD-10 - M20.41) 11/08/2024 Bursitis of right foot (ICD-10 - M77.51) 05/19/2025 Pain in right toe(s) (ICD-10 - M79.674) 05/19/2025 Pain in left toe(s) (ICD-10 - M79.675) 02/07/2025 Other hammer toe(s) (acquired), left foot [...] Treatment Pending Test Test Name Order Date [id number]-[id number] NAIL, 6 OR MORE 11/11/2011 [id number] NAIL, 6 OR MORE 02/07/2025 60033-[id number] NAIL, 6 OR MORE 05/19/2025 28010-Ebxu Destruction, 1-14 02/07/2025 Next Appt Details Provider Name:Analia Munoz , 08/22/2025 08:00:00 AM, [address] [place], [address], Insurance Providers Payer Name Payer Address Payer Phone Subscriber Number Group Number Insured Name Patient Relationship to Insured Coverage Start Date Coverage End Date [address] [address] [id number] Brayden Kellogg Self - patient is the insured Medical (General) History Medical History History ICD Code sciatica joint implants/screws hypertension Cholesterol broken bones back, hip, knee pain Arthritis Diabetic Measles Mumps Chicken pox Other hammer toe(s) (acquired), right fo ot M20.41 Other hammer toe(s) (acquired), left tito t M20.42 Surgical History Surgery Date(Month/Year) right knee replacement 08/1991 left knee replacement 08/2022
--- OUTSIDE RECORDS SUMMARY | 2025-07-15 06:55 | XMS_ITS | Clinical Summary ---
Author Organization [facility] Address [address] [place] [address] Care Team Providers Care Vascular Nurse Name Role Phone Lacy Steen MD Primary Care Provider [phone] Surgical History Surgery Date Site/Laterality Comments TOTAL [...] 2003 Zoster Vaccines (1 of 2) 2003 COVID-19 Vaccine ( - 2023-2 5 season) 2024 Depression Screening 12/01/2024 Influenza Vaccine (#1) 2025 RSV Immunization Adult Patie nts (1 [...] age to complete this topic Care Teams Vascular Nurse Relationship Specialty Start Date End Date Lacy Steen MD [address] [place] [address] PCP - General Internal Medicine 05/30/21
[2025-07-15 10:49] LABS: Alanine Aminotransferase 27 U/L (0-40); Albumin Level 4.1 g/dL (3.5-5.0); Alkaline Phosphatase 66 U/L (39-117); Anion Gap 14 (12-20); Aspartate Amino Transferase 24 U/L (5-37); Blood Urea Nitrogen 27 mg/dL (9-16); Calcium 9.4 mg/dL (8.4-10.2); Carbon Dioxide 23 mmol/L (22-29); Chloride 109 mmol/L (96-108); Estimated Glomerular Filt Rate 44; Potassium 4.4 mmol/L (3.3-5.1); Sodium 142 mmol/L (135-145); Total Protein 6.4 g/dL (6.5-8.0)
[2025-07-15 10:56] LABS: Prostate Specific Antigen 1.86 ng/mL (<0.05-4.0)
[2025-07-15 11:02] LABS: Hemoglobin A1C 149.6023 umol/L; Total Hemoglobin (HGBA1C) 3769.1303 umol/L
== END 2025-07-15 06:53 | disposition home or self-care (01) ==
LOC: HO.HMGCLDS 06:52
PROVIDERS: PCP Internal Medicine; Referring Provider Nurse Practitioner Family; Visit Provider Internal Medicine
DX: E11.22 Type 2 diabetes mellitus with diabetic chronic kidney disease (principal); N18.9 Chronic kidney disease, unspecified; I12.9 Hypertensive chronic kidney disease with stage 1 through stage 4 chronic kidney disease, or unspecified chronic kidney disease; R97.20 Elevated prostate specific antigen [PSA]; Z12.5 Encounter for screening for malignant neoplasm of prostate; F17.211 Nicotine dependence, cigarettes, in remission
CPT/HCPCS: 36415; 80053; 83036; 84153

== ENCOUNTER 2025-08-29 08:30 | Outpatient (AMB) | payer MEDICARE, SELFPAY ==
--- NOTE | 2025-08-29 08:31 | A.OFFVIS_ITS ---
Intake Visit Reasons: 6m/PSA/PVR Intake Note: patient presents today for: 6m/psa/pvr urology medications: tamsulosin, finasteride blood thinners: none labs done 07/15/25: psa 1.86 today's pvr: 254mls Supervisor Grower Required: No Accompanied by: Self / Same As Patient Allergies No Known Allergies Allergy (Verified 08/29/25 09:07) Medication List - Last Reconciled 08/29/25 by TC Sharma acetaminophen 650 mg (2 x 325 mg) PO Q6H PRN 30 days amlodipine 5 mg PO DAILY aspirin 81 mg PO BID@1030,2230 atorvastatin 1 tab PO BEDTIME cholecalciferol (vitamin D3) 50 mcg PO DAILY finasteride 5 mg PO DAILY 90 days furosemide 20 mg PO DAILY lisinopril-hydrochlorothiazide 20-25 mg 1 tab PO DAILY metformin 850 mg PO BID multivitamin (Daily Multi-Vitamin tablet) 1 tab PO DAILY omega 4-tal-cle-fish oil 900 mg-360 mg- 455 mg-1,000 mg (Fish Oil) caps PO tamsulosin 0.8 mg (2 x 0.4 mg) PO DAILY 90 days HPI Comments Details: Karan is a 70-year-old male patient of Dr. Steen. He has a past medical history of venous stasis dermatitis, hypercholesteremia, diabetes, osteoarthritis, and hypertension. He presents to the office today for follow-up of his elevated PSA and lower urinary tract symptoms. In discussion with the patient today reports to be doing feeling well. He reports compliance with finasteride and Flomax as prescribed. He currently denies any bothersome urinary issues or concerns. Previous workup has included a retroperitoneal ultrasound 01/24 noting blateral kidneys with no calculi, lesions, and or hydronephrosis. There is an anechoic cyst lower pole measuring approximately 3.4 cm. The bladder is well distended and normal. Bilateral ureteral jets are demonstrated. Pre void bladder volume is approximately 100 mL. Postvoid bladder volume is approximately 300 mL. Prostate volume measures approximately 42 mL. Recent PSA results reviewed with the patient today. As noted and trended below. PSAs: 01/24 4.2 05/24 1.6, 09/23 1.5, 11/23 1.4, 07/25 1.9 In office urinalysis results reviewed with the patient today. PVR 254mls. He otherwise denies incontinence, hematuria, dysuria, foul smelling urine, changes to urinary stream, flank pain, fever, and or chills. We did discussed slight increase in PSA as well as postvoid residual on exam today. We did discuss potential causes of these urological concerns. We discussed further treatment options and risks and benefits of these treatment options. He otherwise denies any bothersome issues or concerns. [facility] Medical History Venous stasis dermatitis High cholesterol Diabetes mellitus Osteoarthritis HTN (hypertension) Osteoarthritis of left knee Surgical History (Updated 04/11/25 @ 17:59 by Arnel King MD) History of left knee replacement History of total right knee replacement History of tonsillectomy Social History (Reviewed 12/02/24 @ 09:20 by Ning Fletcher [facility]) Are you a primary care information associate to a significant other at home: No Do you presently have visiting nurse or other home services: No Patient Tobacco Use Status: Former Tobacco user Tobacco use type: Cigarette Second Hand Smoke Exposure: No service: No Current occupational status: employed 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 Review of Systems Eyes Reports no additional complaints ENT Reports no additional complaints Card Reports as per HPI Resp Reports no additional complaints GI Reports no additional complaints Reports as per HPI Musc Reports as per HPI Neuro Reports no additional complaints Psych Reports no additional complaints Endo Reports as per HPI Juliocesar/Lymph Reports no additional complaints Aller/Immun Reports no additional complaints Physical Exam Const General: cooperative, healthy appearing, comfortable, no acute distress, well developed, alert and awake Nutritional Appearance: overweight Orientation/consciousness: patient oriented x3 Limitations: no limitations HEENT Head: Yes normal to inspection, Yes normocephalic and Yes atraumatic Ears: hearing grossly normal bilaterally Eyes General: appearance normal, both eyes and all related structures Neck Neck: Yes normal visual inspection and Yes trachea midline Chest Chest palpation & inspection: normal inspection of the chest Resp Effort & Inspection: normal respiratory effort and able to speak in complete sentences Cardio Rate: regular rate GI Inspection: Yes normal to inspection General: Yes no CVA tenderness Back/Spine/Pelvis Back: no CVA tenderness Skin General skin exam: no rashes or lesions noted Neuro General: patient oriented x3 Extrem General: Yes normal to inspection Psych Appearance: grossly normal and well kempt Mental Status: mental status grossly normal Speech and movement: Normal speech and movement present and Clear speech present Affect: normal affect Attitude: cooperative Thought process: Normal thought process present Thought content: Normal thought content present Insight: Fair insight present (Psych) Judgement: Fair judgement present (Psych) Office Procedures Post Void Residual Post Residual Void Post Void Residual (PVR): 254 [id number]-[id number] Void Residual by ultrasound Results AMB Urinalysis, Automated UA Leukoctes 0 Lizz/uL Last Edit by LINDA Espinoza on 08/29/25 08:51 UA Nitrite Negative Last Edit by LINDA Espinoza on 08/29/25 08:51 UA Urobilinogen 0.2 mg/dL Last Edit by LINDA Espinoza on 08/29/25 08:5 1 UA Protein 0 mg/dL Last Edit by LINDA Espinoza on 08/29/25 08:51 UA pH 6.0 Last Edit by LINDA Espinoza on 08/29/25 08:51 UA Blood 0 Toni/uL Last Edit by Yvette Dugan CCM on 08/29/25 08:51 UA Specific [place] 1.010 Last Edit by LINDA Espinoza on 08/29/25 08: 51 UA Ketone Last Edit by LINDA Espinoza on 08/29/25 08:51 UA Bilirubin 0 mg/dL Last Edit by Yvette Dugan CCM on 08/29/25 08:51 UA Glucose 0 mg/dL Last Edit by Yvette Dugan CCM on 08/29/25 08:51 Results Reviewed Results Reviewed: Laboratory Last Values Urine pH (Auto) 6.0 08/29/25 08:50 Specific [place] (Auto) 1.010 08/29/25 08:50 Urine Protein (Auto) 0 mg/dL 08/29/25 08:50 Glucose (UA)(Auto) 0 mg/dL 08/29/25 08:50 Urine Blood (Auto) 0 Toni/uL 08/29/25 08:50 Urine Nitrite (Auto) Negative 08/29/25 08:50 Urine Bilirubin (Auto) 0 mg/dL 08/29/25 08:50 Urine Urobilinogen (Auto) 0.2 mg/dL 08/29/25 08:50 Leukocyte Esterase (Auto) 0 Lizz/uL 08/29/25 08:50 Assessment & Plan Assessment & Plan (1) Elevated PSA: Code(s): R97.20 - Elevated prostate specific antigen [PSA] Category: Medical (2) Weak urinary stream: Code(s): R39.12 - Poor urinary stream Category: Medical (3) History of urinary hesitancy: Code(s): Z87.898 - Personal history of other specified conditions Category: Medical (4) BPH (benign prostatic hyperplasia): Code(s): N40.0 - Benign prostatic hyperplasia without lower urinary tract symptoms Category: Medical (5) Incomplete bladder emptying: Code(s): R33.9 - Retention of urine, unspecified Category: Medical Plan In office urinalysis results with the patient today; as noted above. PVR 254mL. Continue Flomax and finasteride as prescribed; we discussed taking finasteride every other day. Patient currently denies any bothersome urinary issues or concerns. He reports be happy with current voiding parameters. Recent PSA results reviewed with the patient today; as noted above. Will continue with surveillance monitoring. Will reassess PVR with nursing in 2 weeks if continue to be elevated we discussed trial of terazosin verses current tamsulosin. All questions were answered. Follow-up with nursing in 2 weeks for PVR; or sooner with any issues, concerns, and or questions. Orders: Orders AMB Post Void Residual by ultrasound Today N40.0 - Benign prostatic hyperplasia without lower urinary tract symptoms AMB Urinalysis Automated Today Z13.9 - Encounter for screening, unspecified Medications: Refilled finasteride 5 mg PO DAILY 90 tabs 2RF 90 days tamsulosin 0.8 mg (2 x 0.4 mg) PO DAILY 180 caps 3RF 90 days Patient Instructions: The patient had an opportunity to ask questions regarding the treatment plan. All questions were answered. Physical exam, labs, and imaging were discussed and reviewed in detail. As well as risks, benefits, and discussion of treatment choices. No major barriers to understanding were identified. The patient expressed understanding and agreement with the above treatment plan. The patient was made aware they should contact our office by phone for worsening of their current condition, the appearance of new symptoms, or with any questions or concerns. Compliance is encouraged with any medications and follow up testing that is ordered. It is a privilege to be allowed the opportunity to participate in? your urological care.? Again, if you have any questions or concerns If you have any questions or concerns please do not hesitate to contact me. The office is [phone]. This note is constructed using voice recognition software. While every effort has been made to ensure accuracy water quality control engineer errors may have been included. Yours sincerely, CHITO Sharma Coding Level of Care Code Est Pt Level 3 (54381) Complex EM visit Add On G2211 Diagnoses Elevated PSA R97.20 Weak urinary stream R39.12 History of urinary hesitancy Z87.898 BPH (benign prostatic hyperplasia) N40.0 Incomplete bladder emptying R33.9 CPT Codes Post Residual Void - PVR CPT Code: 21550-Kdaa Void Residual by ultrasound ([id number])
--- OUTSIDE RECORDS SUMMARY | 2025-08-29 08:52 | XMS_ITS | Patient Health Record ---
[facility] Organization [facility] Address [address] [place] [address] Care Team Providers Care Oracle Bpm Consultant Name Role Phone Lacy Steen Primary Care Provider Unavailab garcia Analia Munoz Unavailable [phone] Allergies No Known Allergies Results Component Value [...] Lab: Notes/Report: HEMOGLOBIN A1C % (HH) 5.5 HEMOGLOBIN A1C (GLYCOHEMOGLO BIN) Reviewed date:08/22/2025 08:15:57 AM Interpretation: Performing Lab: Notes/Report: HEMOGLOBIN A1C % (HH) 5.8 Reason For Referral Diagnosis 1 Tinea unguium [...] Lacy Referring Provider Last Name Enio Referred [facility] Richard Referred Provider Analia Munoz Referred Address [address] [facility] [place],[address] Referred Provider Specialty Podiatry Referral Priority Routine Medications Medication SIG (Take, Route, Frequency, Duration) Notes Start Date End Date Status Lisinopril-hydroCHLOROthia zide 20-25 MG 1 tablet Orally Once a day; Duration: 30 day(s) Active metFORMIN HCl 850 MG as directed Orally Twice a day; Duration: 30 days Active Aspirin 81 MG 1 tablet Orally Once a day Active Atorvastatin Calcium 20 MG 1 tablet Oral ly Once a day Active Tamsulosin HCl 0.4 MG 1 capsule Orally O nce a day Active amLODIPine Besylate 5 MG 1 tablet Orally Once a day Active Finasteride 5 MG 1 tablet Orally Once a day Active Furosemide 20 MG 1 tablet Orally Once a day; Duration: 30 day(s) Unknown Simvastatin 80 MG 1 tablet every eveni ng Orally Once a day; Duration: 30 day(s) Unknown Night Splint AFO - L1930 1 wear at rest; Duration: 30 days Active Ciclopirox Olamine 0.77 % 1 application Externally Twice a day to skin of feet including between the toes; Duration: 30 days Active Immunizations Vaccine Route Administration Date Status Comme nts Influenza Unknown 08/01/2024 Administered Social History Tobacco Use: Social History Observation Description Date Details (start date - stop date) Never Smoker NA - NA Tobacco use other than smoking: Question Answer Notes Are you an other tobacco user? No Tobacco Control (Standard) Question Answer Notes Tobacco use: Nonsmoker Additional Findings: Tobacco non-user Current no nsmoker AUDIT-C (Standard) Question Answer Notes Did you have a drink contain ing alcohol in the past year? Yes How often did you have a dri nk containing alcohol in the past year? Monthly or less (1 point) How many drinks did you have on a typical day when you were drinking in the past year? 1 or 2 drinks (0 point) How often did you have six o r more drinks on one occasion in the past year? Less than monthly (1 point) Points 2 Interpretation Negative Problems Problem Type SNOMED Code ICD Code Onset Dates Problem Status W/U Status Risk Notes Problem Plantar wart (50893911) Plantar wart (B07.0) Active confirmed Problem Type II diabetes mellitus without complication (349589979) Type 2 diabetes mellitus without complications (E11.9) Active confirmed Vital Signs Heart Rate 62 /min 11/08/2024 Blood pressure diastolic 80 mm Hg 08/22/2025 Height 5ft 11in in 08/22/2025 Blood pressure systolic 120 mm Hg 08/22/2025 Weight 255 lbs 08/22/2025 BMI 35.56 kg/m2 08/22/2025 Procedures Procedure Date Ordered Date Performed Result Body Sit e 53461-NWIUCRW NAIL, 6 OR MORE 02/07/2025 N/A 03543-Xbqz Destruction, 1-14 02/07/2025 N/A 58499-JQSVGQS NAIL, 6 OR MORE 05/19/2025 N/A [id number] NAIL, 6 OR MORE 08/22/2025 N/A Encounters Encounter Location Date [facility] [address] 09/23/2024 Analia Black Pain in right foot M79.671 ; Plantar fasciitis of right foot M72.2 ; 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 ; Bursitis of right foot M77.51 ; Tinea pedis of both feet B35.3 and Type 2 diabetes mellitus without complications E11.[address] [address] 11/08/2024 Analia Black Pain in right foot M79.671 ; Plantar fasciitis of right foot M72.2 ; 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 ; Bursitis of right foot M77.51 ; Tinea pedis of both feet B35.3 and Type 2 diabetes mellitus without complications E11.[address] [address] 02/07/2025 Analia Black Type 2 diabetes mellitus without complications E11.9 ; Plantar wart B07.0 ; Right foot pain M79.671 ; Other hammer toe(s) (acquired), right foot M20.41 ; Other hammer toe(s) (acquired), left foot M20.42 ; Onychomycosis B35.1 ; Pain in right toe(s) M79.674 and Pain in left toe(s) M79.[address] [address] 05/19/2025 Analia Munoz Plantar wart B07.0 ; Onychomycosis B35.1 ; Type 2 diabetes mellitus without complications E11.9 ; Pain in right toe(s) M79.674 and Pain in left toe(s) M79.[address] [address] 08/22/2025 Analia Munoz Type 2 diabetes mellitus without complications E11.9 ; Onychomycosis B35.1 ; Pain in right toe(s) M79.674 and Pain in left toe(s) M79.[address] [address] 02/07/2025 Analia Munoz Assessments Encounter Date Diagnosis [...] - B07.0) 05/19/2025 Onychomycosis (ICD-10 - B35.1) 08/22/2025 Type 2 diabetes mellitus without complications (ICD-10 - E11.9) 08/22/2025 Onychomycosis (ICD-10 - B35.1) 08/22/2025 Pain in right toe(s) (ICD-10 - M79.674) 05/19/2025 Type 2 diabetes mellitus without complications [...] Pain in right toe(s) (ICD-10 - M79.674) 08/22/2025 Pain in left toe(s) (ICD-10 - M79.675) 05/19/2025 Pain in left toe(s) (ICD-10 - [...] Treatment Pending Test Test Name Order Date [id number] NAIL, 6 OR MORE 11/11/2011 [id number] NAIL, 6 OR MORE 02/07/2025 61294-[id number] NAIL, 6 OR MORE 05/19/2025 [id number] NAIL, 6 OR MORE 08/22/2025 02860-Gajb Destruction, 1-14 02/07/2025 Next Appt Details Provider Name:Analia Munoz , 12/12/2025 09:30:00 AM, [address] [place], [address], Insurance Providers Payer Name Payer Address Payer Phone Subscriber Number Group Number Insured Name Patient Relationship to Insured Coverage Start Date Coverage End Date [facility] [address] [place] [phone] [id number] Brayden Kellogg Self - patient is the [...]
--- OUTSIDE RECORDS SUMMARY | 2025-08-29 08:52 | XMS_ITS | Clinical Summary ---
Author Organization [facility] Address [address] [place] [address] Care Team Providers Care Business Loan Processor Name Role Phone Lacy Steen MD Primary Care Provider [phone] Surgical History Surgery Date Site/Laterality Comments TOTAL [...] 2003 Zoster Vaccines (1 of 2) 2003 Depression Screening 12/01/2024 COVID-19 Vaccine ( - 2023-2 5 season) 2025 Influenza Vaccine (#1) 2025 RSV Immunization Adult [...] age to complete this topic Care Teams Business Loan Processor Relationship Specialty Start Date End Date Lacy Steen MD [address] [place] [address] PCP - General Internal Medicine 05/30/21
== END 2025-08-29 09:05 | disposition home or self-care (01) ==
LOC: HO.HUSH 08:30
PROVIDERS: PCP Internal Medicine; Visit Provider Nurse Practitioner Family
DX: R97.20 Elevated prostate specific antigen [PSA] (principal); R39.12 Poor urinary stream; Z87.898 Personal history of other specified conditions; N40.0 Benign prostatic hyperplasia without lower urinary tract symptoms; R33.9 Retention of urine, unspecified; Z13.9 Encounter for screening, unspecified
CPT/HCPCS: 99213; G2211

== ENCOUNTER → 2025-08-29 08:30 | Outpatient (BNVA) | payer MEDICARE, SELFPAY | PROVIDERS: PCP Internal Medicine; Visit Provider Nurse Practitioner Family | DX: R39.12 Poor urinary stream (principal); R97.20 Elevated prostate specific antigen [PSA]; N40.0 Benign prostatic hyperplasia without lower urinary tract symptoms; R39.9 Unspecified symptoms and signs involving the genitourinary system; Z87.898 Personal history of other specified conditions | CPT/HCPCS: 51798; 81003; 99212 ==

== ENCOUNTER → 2025-09-14 08:54 | Outpatient (BNVA) | payer MEDICARE, SELFPAY | PROVIDERS: PCP Internal Medicine; Visit Provider Nurse Practitioner Family | DX: N40.1 Benign prostatic hyperplasia with lower urinary tract symptoms (principal); R33.9 Retention of urine, unspecified; R39.12 Poor urinary stream | CPT/HCPCS: 51798 ==

== ENCOUNTER 2025-09-29 10:11 | Outpatient (AMB) | payer MEDICARE, SELFPAY ==
--- NOTE | 2025-09-29 10:20 | A.OFFVIS_ITS ---
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 Pt states he has had cellulitis off and on for 10 years. Pt states that he has blistering, bleeding and skin tears for many years. Pt states he has lymphedema pumps and hanley s been using them for 3 weeks and seem to be helping. 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 The swelling has persisted for approximately 10 to 12 years, initially linked to cellulitis, and has been managed with lymphedema pumps, which have provided some relief. Skin tearing and blistering have been observed, indicating potential complications. The patient underwent bilateral knee replacements due to football injuries, with surgeries in 1993 and 2001. He has a history of smoking cessation and is currently managing diabetes mellitus with Metformin, maintaining blood glucose levels below 160 mg/dL. 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 It has been affecting there daily activities including work as a Ayers. It is noted more so in right leg. Patient denies any previous venous surgery or injections. Patient denies any history of DVT/ PE. Patient denies any history of phlebitis. Trial of compression includes - [id number]. In addition he has been using [employer] lymphedema pumps They now present for vascular evaluation regarding their varicose veins. [facility] Medical History Venous stasis dermatitis High cholesterol Diabetes mellitus Osteoarthritis HTN (hypertension) Osteoarthritis of left knee Surgical History History of left knee replacement History of total right knee replacement History of tonsillectomy Social History Are you a primary critical care nurse practitioner to a significant other at home: No Do you presently have visiting nurse or other home services: No Patient Tobacco Use Status: Former Tobacco user Tobacco use type: Cigarette Second Hand Smoke Exposure: No service: No Current occupational status: employed 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 Review of Systems Const Reports as per HPI ENT Reports no additional complaints Card Denies chest pain, Denies chest pain at rest and Denies chest pain with activity Resp Denies chest congestion and Denies cough GI Reports no additional complaints Musc Details: pain over varicosities, aching of lower extremities, swelling, cramping, heaviness and tiredness, itching Denies abnormal gait Skin/Breast Reports pruritus and Denies wounds Neuro Reports no additional complaints and Denies abnormal gait Psych Denies no additional complaints Physical Exam Vital Signs: BMI result Body Mass Index 34.2 Const General: cooperative, healthy appearing and comfortable Orientation/consciousness: oriented to person, oriented to place and oriented to time Neck Carotids: no bruits Chest Chest palpation & inspection: normal inspection of the chest and normal palpation of entire chest wall Resp Effort & Inspection: normal respiratory effort and able to speak in complete sentences Cardio Rate: regular rate Heart sounds: S1 normal heart sound present and S2 normal heart sound present Peripheral pulses: Peripheral pulses 2+ throughout GI Inspection: Yes normal to inspection Skin Other: +2 edema, bilateral lower extremity pretibial discoloration CEAP Classification C4 - skin color changes Ep - Etiology Primary As - superficial veins P - reflux General skin exam: dry skin Neuro General: oriented to person, oriented to place and oriented to time Extrem Right lower extremity: full ROM, normal capillary refill and edema Left lower extremity: full ROM, normal capillary refill and edema Psych Mental Status: mental status grossly normal Assessment & Plan Assessment & Plan (1) Varicose veins of right lower extremity with inflammation: Code(s): I83.11 - Varicose veins of right lower extremity with inflammation Category: Medical Plan: In short, the patient has evidence of venous insufficiency. I have discussed the pathophysiology with the patient. In addition I have provided info rmational material regarding venous disease to the patient. We have discussed conservative measures including compression, elevation, and exercise. I have also provided a handout regarding appropriate use of compression stockings and where to purchase good compression stockings as well. I have taken the liberty of ordering venous insufficiency testing with the patient. They will follow up with me after testing. The patient had an opportunity to ask questions regarding the treatment plan. All questions were answered. Imaging studies, laboratory studies and physical exam results were discussed and reviewed in detail. No major barriers to understanding were identified. The patient expressed understanding and agreement with the above treatment plan. The patient is aware they should contact our office by phone for worsening of the current condition or the appearance of new symptoms. Thank you for allowing me to participate in the vascular care of this patient. If you have any questions or concerns regarding the treatment for the above condition please do not hesitate to contact me. The office telephone contact is [phone]. This note is constructed using voice recognition software. While every effort has been made to ensure accuracy, engraver hand soft metals errors may have been included. Thank you for allowing me to participate in the care of your patient. Yours sincerely, Tyron Zuniga MD, FACS, R.P.V.I. (2) Lymphedema: Code(s): I89.0 - Lymphedema, not elsewhere classified Category: Medical Plan: Patient currently being managed conservatively with lymphedema pumps. He has received pumps from [employer] will be following up with that. Orders: Orders US venous duplex LE Today I83.11 - Varicose veins of right lower extremity with inflammation Coding Level of Care Code New Pt Level 4 (54734) Diagnoses Varicose veins of right lower extremity with inflammation I83.11 Lymphedema I89.0
[2025-09-29 10:21] VITALS: BMI 34.2
--- OUTSIDE RECORDS SUMMARY | 2025-09-29 12:20 | XMS_ITS | Clinical Summary ---
Author Organization [facility] Address [address] [place] [address] Care Team Providers Care Underwriting Service Representative Name Role Phone Lacy Steen MD Primary Care Provider Surgical History Surgery Date Site/Laterality Comments TOTAL [...] age to complete this topic Care Teams Underwriting Service Representative Relationship Specialty Start Date End Date Lacy Steen MD [address] [place] [address] PCP - General Internal Medicine 05/30/21
--- OUTSIDE RECORDS SUMMARY | 2025-09-29 12:20 | XMS_ITS | Patient Health Record ---
[facility] Address [address] [place] [address] Care Team Providers Care Child Life Therapist Name Role Phone Lacy Steen Primary Care Provider Unavailab garcia Anaila Munoz Unavailable [phone] Allergies No Known Allergies Results Component Value Reference Range Notes HEMOGLOBIN A1C (GLYCOHEMOGLO BIN) Reviewed date:02/07/2025 02:53:16 PM Interpretation: Performing Lab: Notes/Report: HEMOGLOBIN A1C % (HH) 5.4 HEMOGLOBIN A1C (GLYCOHEMOGLO BIN) Reviewed date:05/19/2025 08:15:35 AM Interpretation: Performing Lab: Notes/Report: HEMOGLOBIN A1C % (HH) 5.5 HEMOGLOBIN A1C (GLYCOHEMOGLO BIN) Reviewed date:08/22/2025 08:15:57 AM Interpretation: Performing Lab: Notes/Report: HEMOGLOBIN A1C % (HH) 5.8 Reason For Referral No Information Medications Medication SIG (Take, Route, Frequency, Duration) [...] W/U Status Risk Notes Problem Plantar wart (46108586) Plantar wart (B07.0) Active confirmed Problem Type II diabetes mellitus without complication (936585156) Type 2 diabetes mellitus without complications (E11.9) Active confirmed Vital Signs Heart Rate 62 /min 11/08/2024 Blood pressure diastolic 80 mm Hg 08/22/2025 Height 5ft 11in in 08/22/2025 Blood pressure systolic 120 mm Hg 08/22/2025 Weight 255 lbs 08/22/2025 BMI 35.56 kg/m2 08/22/2025 Procedures Procedure Date Ordered Date Performed Result Body Sit e 00035-ZDTZUMN NAIL, 6 OR MORE 02/07/2025 N/A 40237-Nrhf Destruction, 1-14 02/07/2025 N/A 08377-[id number] NAIL, 6 OR MORE 05/19/2025 N/A 46822-SXFVEJY NAIL, 6 OR MORE 08/22/2025 N/A Encounters Encounter Location Date Provider Diagnosis [facility] [address] [place] [address] 11/08/2024 Analai Black Pain in right foot M79.671 ; Plantar fasciitis of right foot M72.2 ; 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 ; Bursitis of right foot M77.51 ; Tinea pedis of both feet B35.3 and Type 2 diabetes mellitus without complications E11.[address] [address] 02/07/2025 Analia Black Type 2 diabetes mellitus without complications E11.9 ; Plantar wart B07.0 ; Right foot pain M79.671 ; Other hammer toe(s) (acquired), right foot M20.41 ; Other hammer toe(s) (acquired), left foot M20.42 ; Onychomycosis B35.1 ; Pain in right toe(s) M79.674 and Pain in left toe(s) M79.[address] [address] 05/19/2025 Analia Black Plantar wart B07.0 ; Onychomycosis B35.1 ; Type 2 diabetes mellitus without complications E11.9 ; Pain in right toe(s) M79.674 and Pain in left toe(s) M79.[address] [address] 08/22/2025 Analia Black Type 2 diabetes mellitus without complications E11.9 ; Onychomycosis B35.1 ; Pain in right toe(s) M79.674 and Pain in left toe(s) M79.[address] [address] 02/07/2025 Analia Munoz Assessments Encounter Date Diagnosis (ICD Code) Assessment Notes Treatment Notes Treatment Clinical Notes Section Notes 11/08/2024 Pain in right foot (ICD-10 - [...] myositis of right foot (ICD-10 - M60.171) 02/07/2025 Other hammer toe(s) (acquired), right foot (ICD-10 - M20.41) 11/08/2024 Bursitis of right foot (ICD-10 - M77.51) 05/19/2025 Pain in right toe(s) (ICD-10 - M79.674) 08/22/2025 Pain in left toe(s) (ICD-10 - M79.675) 05/19/2025 Pain in left toe(s) (ICD-10 - M79.675) 02/07/2025 Other hammer toe(s) (acquired), left foot (ICD-10 - M20.42) 11/08/2024 Tinea pedis of both feet (ICD-10 - B35.3) 11/08/2024 Type 2 diabetes mellitus without complications (ICD-10 - E11.9) 02/07/2025 Onychomycosis (ICD-10 - B35.1) 02/07/2025 Pain in right toe(s) (ICD-10 - M79.674) 02/07/2025 Pain in left toe(s) (ICD-10 - M79.675) 02/07/2025 Other Plan Of Treatment Pending Test Test Name Order Date [id number] NAIL, 6 OR MORE 11/11/2011 [id number] NAIL, 6 OR MORE 02/07/2025 [id number] NAIL, 6 OR MORE 05/19/2025 24381-HORPQTO NAIL, 6 OR MORE 08/22/2025 [id number] Destruction, 1-14 02/07/2025 Next Appt Details Provider Name:Analia Munoz , 12/12/2025 09:30:00 AM, [address] [place], [address], Insurance Providers Payer Name Payer Address Payer Phone Subscriber Number Group Number Insured Name Patient Relationship to Insured Coverage Start Date Coverage End Date [facility] [address] [place] [phone] [id number] Brayden Kellogg Self - patient is the [...]
== END 2025-09-29 10:51 | disposition home or self-care (01) ==
LOC: HO.HVS 10:12
PROVIDERS: PCP Internal Medicine; Visit Provider Surgery Vascular Surgery
DX: I83.11 Varicose veins of right lower extremity with inflammation (principal); I89.0 Lymphedema, not elsewhere classified
CPT/HCPCS: 99204

== ENCOUNTER → 2025-09-29 10:11 | Outpatient (BNVA) | payer MEDICARE, SELFPAY | PROVIDERS: PCP Internal Medicine; Visit Provider Surgery Vascular Surgery | DX: I83.11 Varicose veins of right lower extremity with inflammation (principal); I89.0 Lymphedema, not elsewhere classified | CPT/HCPCS: 99202 ==

== ENCOUNTER 2025-10-31 08:35 | Outpatient (REF) | payer MEDICARE, SELFPAY ==
--- NOTE | ~2025-10-31 | US_ITS ---
EXAMINATION: US LOWER EXTREMITY VENOUS (REFLUX EXAM), BILATERAL CLINICAL INFORMATION: I 83.11. Varices, right lower extremity. COMPARISON: DVT ultrasound and left lower extremity dated August 29, 2022. TECHNIQUE: Color flow triplex imaging and compression Doppler was performed to evaluate both the deep and the superficial systems bilaterally. To evaluate the superficial system, the examination was performed in the upright position. Color-flow Doppler ultrasound and compression ultrasound were utilized. In addition, maneuvers were utilized to demonstrate reflux. FINDINGS: 1. DEEP VENOUS ULTRASOUND OF THE RIGHT LOWER EXTREMITY: Common Femoral Vein: Compressible, normal respiratory variation and augmented flow. Femoral Vein: Compressible, normal color flow and augmentation. Popliteal Vein: Compressible, normal augmentation. Deep Reflux: There is no evidence of reflux in the deep system in either the common femoral vein, superficial femoral or the popliteal vein. There is no evidence of a Ayers's cyst. 2. SUPERFICIAL ULTRASOUND WITH DOPPLER OF RIGHT LOWER EXTREMITY: GREAT SAPHENOUS VEIN: Saphenofemoral Junction: 0.6 cm; Reflux: 0 ms Proximal Thigh: 0.5 cm; Reflux: 0 ms Mid Thigh: 0.4 cm; Reflux: 0 ms Distal Thigh: 0.4 cm; Reflux: 1664 ms At Knee: 0.4 cm; Reflux: 2160 ms Proximal Calf: 0.2 cm; Reflux: 0 ms Mid Calf: 0.3 cm; Reflux: 0 ms Distal Calf: 0.3 cm; Reflux: 0 ms DUPLICATED MEDIAL GREAT SAPHENOUS VEIN: Diameter: 0.6 cm . Reflux: NA DUPLICATED LATERAL GREAT SAPHENOUS VEIN: Diameter: None imaged Reflux: NA SMALL SAPHENOUS VEIN: Saphenopopliteal Junction: 0.4 cm; Reflux: 0 ms Proximal: 0.3 cm; Reflux: 0 ms Distal: 0.2 cm; Reflux: 0 ms VEIN OF GIACOMINI: Size: NA Reflux: NA PERFORATORS: Location: None imaged Size: NA Reflux: NA VARICOSITIES: Location: Proximal and distal calf. Size: 0.4 and 0.3 cm, respectively. Reflux: 2732 ms in the proximal calf. 3. DEEP VENOUS ULTRASOUND OF THE LEFT LOWER EXTREMITY: Common Femoral Vein: Compressible, normal respiratory variation and augmented flow. Femoral Vein: Compressible, normal color flow and augmentation. Popliteal Vein: Compressible, normal augmentation. Probable old/chronic nonocclusive thrombus in the proximal calf involving the left superficial saphenous vein. Deep Reflux: There is no evidence of reflux in the deep system in either the common femoral vein, superficial femoral or the popliteal vein. There is no evidence of a Ayers's cyst. 4. SUPERFICIAL ULTRASOUND WITH DOPPLER OF LEFT LOWER EXTREMITY: GREAT SAPHENOUS VEIN: Saphenofemoral Junction: 0.8 cm; Reflux: 0 ms Proximal Thigh: 0.6 cm; Reflux: 0 ms Mid Thigh: 0.2 cm; Reflux: 0 ms Distal Thigh: 0.2 cm; Reflux: 0 ms At Knee: 0.15 cm; Reflux: 0 ms Proximal Calf: 0.2 cm; Reflux: 0 ms Mid Calf: 0.2 cm; Reflux: 0 ms Distal Calf: 0.2 cm; Reflux: 0 ms DUPLICATED MEDIAL GREAT SAPHENOUS VEIN: Diameter: None imaged Reflux: NA DUPLICATED LATERAL GREAT SAPHENOUS VEIN: Diameter: 0.3 cm. Reflux: NA SMALL SAPHENOUS VEIN: Saphenopopliteal Junction: 0.5 cm; Reflux: 0 ms Proximal: 0.3 cm; Reflux: 0 ms Distal: 0.2 cm; Reflux: 0 ms VEIN OF GIACOMINI: Size: NA Reflux: NA PERFORATORS: Location: None imaged Size: NA Reflux: NA VARICOSITIES: Location: None Imaged Size: NA Reflux: NA US/US venous insuf bilat IMPRESSION: Right: Venous insufficiency, great saphenous vein from the distal thigh to the knee. Left: No venous insufficiency. Probable old nonocclusive thrombus, proximal segment left SSV. Electronically signed by: Bandar Barth MD 10/31/2025 09:59 AM [facility]
--- OUTSIDE RECORDS SUMMARY | 2025-10-31 09:02 | XMS_ITS | Clinical Summary ---
Author Organization [facility] Address [address] [place] [address] Care Team Providers Care Data Integration Architect Name Role Phone Lacy Steen MD Primary Care Provider [phone] Surgical History Surgery Date Site/Laterality Comments TOTAL [...] 2) 2003 Depression Screening 12/01/2024 COVID-19 Vaccine (1 - 2024-2 6 season) 2025 Influenza Vaccine (#1) 2025 RSV [...] age to complete this topic Care Teams Data Integration Architect Relationship Specialty Start Date End Date Lacy Steen MD [address] [place] [address] PCP - General Internal Medicine 05/30/21
== END 2025-10-31 08:36 | disposition home or self-care (01) ==
LOC: HO.US 08:35
PROVIDERS: PCP Internal Medicine; Visit Provider Surgery Vascular Surgery
DX: I83.11 Varicose veins of right lower extremity with inflammation (principal)
CPT/HCPCS: 93970

== ENCOUNTER → 2025-10-31 08:39 | Outpatient (BNV) | payer MEDICARE, SELFPAY | PROVIDERS: PCP Internal Medicine; Visit Provider Radiology Diagnostic Radiology | DX: I83.11 Varicose veins of right lower extremity with inflammation (principal) | CPT/HCPCS: 93970 ==